=== PATIENT | male | born 1990 | race Asian ===

== ENCOUNTER 2016-04-20 09:26 | Inpatient (IN) | payer OTHER ==
[2016-04-20 09:38] VITALS: BMI 23.3
--- NOTE | 2016-04-20 12:04 | HP ---
COWS - Scale Resting Pulse: 0= ME 80 or Below Sweatin=Flushed/Facial Moisture Restless Observation: 1= Difficult to Sit Still Pupil Size: 0= Normal to Room Light Bone or Joint Aches: 2= Severe Diffuse Aches Runny Nose/ Eye Tearin= Runny Nose/Eyes GI Upset > 30mins: 2= Nausea/Diarrhea Tremor Observation: 2= Slight Tremor Visible Yawning Observation: 2= >3x During Session Anxiety or Irritability: 2=Irritable/Anxious Goose Flesh Skin: 3=Piloerection COWS Score: 18 Admission ROS S - HPI Chief Complaint: I am here for detox Allergies/Adverse Reactions: Allergies Allergy/AdvReac Type Severity Reaction Status Date / Time No Known Allergies Allergy Verified 04/20/16 09:29 History of Present Illness: pt is a 25yr old male with a history of heroin dependence seeking detox for treatment. Exam Limitations: No Limitations - Ebola screening Have you traveled outside of the country in the last 21 days: No Have you had contact with anyone from an Ebola affected area: No Have you been sick,other than usual withdrawal symptoms: No Do you have a fever: No - Review of Systems Constitutional: Chills, Diaphoresis, Night Sweats EENT: reports: No Symptoms Reported Respiratory: reports: No Symptoms reported Cardiac: reports: No Symptoms Reported GI: reports: Diarrhea, Poor Fluid Intake : reports: No Symptoms Reported Musculoskeletal: reports: Back Pain, Joint Pain, Muscle Pain Integumentary: reports: Flushing, Sweating Neuro: reports: Headache, Tingling, Tremors Endocrine: reports: Excessive Sweating, Flushing, Intolerance to Cold, Intolerance to Heat Hematology: reports: No Symptoms Reported Psychiatric: reports: No Sypmtoms Reported, Judgement Intact, Mood/Affect Appropiate, Orientated x3, Agitated, Anxious Other Systems: Reviewed and Negative Patient History - Patient Medical History Hx Anemia: No Hx Asthma: No Hx Chronic Obstructive Pulmonary Disease (COPD): No Hx Cancer: No Hx Cardiac Disorders: No Hx Congestive Heart Failure: No Hx Hypertension: No Hx Hypercholesterolemia: No Hx Pacemaker: No HX Cerebrovascular Accident: No Hx Seizures: No Hx Dementia: No Hx Diabetes: No Hx Gastrointestinal Disorders: No Hx Liver Disease: No Hx Genitourinary Disorders: No Hx Sexually Transmitted Disorders: No Hx Renal Disease (ESRD): No Hx Thyroid Disease: No Hx Human Immunodeficiency Virus (HIV): No (negative) Hx Hepatitis C: No (negative) Hx Depression: No Hx Suicide Attempt: No (denies) Hx Bipolar Disorder: No Hx Schizophrenia: No - Patient Surgical History Past Surgical History: No Hx Neurologic Surgery: No Hx Cataract Extraction: No Hx Cardiac Surgery: No Hx Lung Surgery: No Hx Breast Surgery: No Hx Breast Biopsy: No Hx Abdominal Surgery: No Hx Appendectomy: No Hx Cholecystectomy: No Hx Genitourinary Surgery: No Hx Section: No Hx Orthopedic Surgery: No - PPD History Previous Implant?: Yes Documented Results: Negative w/proof Implanted On Prior [facility] Admission?: Yes Date: 01/14/16 Results: 0 MM PPD to be Administered?: No - Reproductive History Patient is a Female of Child Bearing Age (11 -55 yrs old): No - Smoking Cessation Smoking history: Current every day smoker Have you smoked in the past 12 months: Yes Aproximately how many cigarettes per day: 10 Cigars Per Day: 0 Hx Chewing Tobacco Use: No Initiated information on smoking cessation: Yes 'Breaking Loose' booklet given: 04/20/16 - Substance & Tx. History Hx Alcohol Use: No Hx Substance Use: Yes Substance Use Type: Heroin Hx Substance Use Treatment: Yes - Substances Abused Heroin Route: Injection Frequency: Daily Amount used: 15-20 BAGS Age of first use: 22 Date of Last Use: 04/19/16 Family Disease History - Family Disease History Family Disease History: Diabetes: Father (BLOOD CLOT ), Brother, Heart Disease: Mother (), Other: Father Admission Physical Exam S - Vital Signs Vital Signs: Vital Signs - 24 hr 04/20/16 09:35 Temperature 96.9 F L Pulse Rate 76 Respiratory 18 Rate Blood Pressure 134/76 - Physical General Appearance: Yes: Appropriately Dressed, Moderate Distress, Thin, Tremorous, Irritable, Sweating, Anxious HEENTM: Yes: Hearing grossly Normal, Normal Voice, Nasal Congestion Respiratory: Yes: Lungs Clear, Normal Breath Sounds, No Respiratory Distress Neck: Yes: No masses,lesions,Nodules Breast: Yes: Within Normal Limits Cardiology: Yes: Regular Rhythm, Regular Rate, S1, S2 Abdominal: Yes: Normal Bowel Sounds, Non Tender, Soft Genitourinary: Yes: Within Normal Limits Back: Yes: Normal Inspection Musculoskeletal: Yes: full range of Motion, Back pain, Joint Stiffness, Joint swelling Extremities: Yes: Normal Capillary Refill, Normal Inspection, Tremors Neurological: Yes: Fully Oriented, Alert, Normal Response Integumentary: Yes: Normal Color, Diaphoresis, Track Meier (abscess to left forearm) Lymphatic: Yes: Within Normal Limits - Diagnostic (1) Nicotine dependence Current Visit: Yes Status: Chronic Qualifiers: Nicotine product type: cigarettes Substance use status: uncomplicated Qualified Code(s): F17.210 - Nicotine dependence, cigarettes, uncomplicated (2) Opioid dependence with withdrawal Current Visit: Yes Status: Chronic Cleared for Admission [facility] - Detox or Rehab [facility] Level of Care: Medically Managed Detox Regimen/Protocol: Methadone [facility] Breath Alcohol Content Breath Alcohol Content: 0 Urine Drug Screen - Results Drug Screen Negative: No Urine Drug Screen Results: THC-Marijuana, OPI-Opiates, MTD-Methadone
[2016-04-20] MEDS ORDERED: MAGNESIUM HYDROX 2400MG/30ML ORAL SUSPENSION 30 ML CUP PO PRN (12:14)
[2016-04-20] MEDS ORDERED: LOPERAMIDE HCL 2 MG CAPSULE PO PRN (12:14)
[2016-04-20] MEDS ORDERED: MENTHOL/PHENOL 1 EACH UD MM PRN (12:14)
[2016-04-20] MEDS ORDERED: ACETAMINOPHEN 325 MG TABLET (FP) PO PRN (12:14)
[2016-04-20] MEDS ORDERED: P-EPHED 60MG/TRIPROLIDI 2.5MG TABLET PO PRN (12:14)
[2016-04-20] MEDS ORDERED: MAG HYDROX/AL HYDROX/SIMETH 30 ML UNIT-DOSE CUP PO PRN (12:14)
[2016-04-20] MEDS ORDERED: guaiFENesin/D-METHORPHAN HB 10 ML UNIT-DOSE CUPS PO PRN (12:14)
[2016-04-20] MEDS ORDERED: MAGNESIUM CITRATE 300 ML BOTTLE PO PRN (12:14)
[2016-04-20] MEDS ORDERED: NICOTINE POLACRILEX 4 MG GUM BUC PRN (12:14)
[2016-04-20] MEDS ORDERED: cloNIDine HCL 0.1 MG TABLET PO ONE (13:06)
[2016-04-20] MEDS ORDERED: METHADONE HCL 10 MG TABLET (FOR DETOX USE ONLY) PO ONE ×2 (13:08→23:00)
[2016-04-20] MEDS: diazePAM 5 MG TABLET PO PRN ×3 (13:36→22:19)
[2016-04-20 20:15] LABS: URINE APPEARANCE SLCLOUDY; URINE BILIRUBIN NEGATIVE (NEGATIVE); URINE BLOOD NEGATIVE (NEGATIVE); URINE COLOR DKYELLOW; URINE GLUCOSE (UA) NEGATIVE (NEGATIVE); URINE KETONE NEGATIVE (NEGATIVE); URINE LEUK ESTERASE NEGATIVE (NEGATIVE); URINE NITRITE NEGATIVE (NEGATIVE); URINE PROTEIN NEGATIVE (NEGATIVE); URINE UROBILINOGEN NEGATIVE E.U./dl (0.2-1.0)
[2016-04-20] MEDS: diphenhydrAMINE HCL 50 MG CAPSULE PO PRN (22:19)
[2016-04-20] MEDS: THIAMINE HCL 100 MG TABLET (FP) PO SCH (22:19)
--- NOTE | 2016-04-20 23:33 | EKG ---
Test Reason : Blood Pressure : / mmHG Vent. Rate : 079 BPM Atrial Rate : 079 BPM P-R Int : 130 ms QRS Dur : 084 ms QT Int : 374 ms P-R-T Axes : 025 038 023 degrees QTc Int : 428 ms NORMAL SINUS RHYTHM NORMAL ECG NO PREVIOUS ECGS AVAILABLE Confirmed by EVIN PARIS MD ([id number]) on 04/20/2016 11:33:27 PM Referred By: Confirmed By:EVIN PARIS MD
[2016-04-21] MEDS: diphenhydrAMINE HCL 50 MG CAPSULE PO PRN (01:46)
[2016-04-21] MEDS: IBUPROFEN 400 MG TABLET (FP) PO PRN ×2 (01:47→20:07)
[2016-04-21] MEDS: diazePAM 5 MG TABLET PO PRN ×4 (02:31→18:29)
[2016-04-21] MEDS ORDERED: METHADONE HCL 10 MG TABLET (FOR DETOX USE ONLY) PO ONE (10:00)
[2016-04-21 10:07] LABS: MCH 25.5 pg (25.7-33.7); MCHC 32.2 g/dl (32.0-35.9); MEAN CELL VOLUME 79.3 fl (80-96); MEAN PLT VOLUME 9.4 fl (7.5-11.1); PLATELET COUNT 386 K/MM3 (134-434); RDW 15.2 % (11.9-15.9); WHITE BLOOD COUNT 10.6 K/mm3 (4.0-10.0)
[2016-04-21] MEDS: SULFAMETHOXAZOLE/TRIMETHOPRIM 800MG/160MG D.S. TABLET PO SCH (10:14)
[2016-04-21] MEDS: PRENATAL VITAMINS W/ FOLIC ACID TABLET (FP) PO SCH (10:15)
[2016-04-21] MEDS: NICOTINE 21 MG/24 HOURS TOPICAL PATCH TD SCH (10:15)
[2016-04-21 10:29] LABS: ALBUMIN 3.8 g/dl (3.4-5.0); ALK PHOS 108 U/L (45-117); ANION GAP 11 (8-16); BILIRUBIN,TOTAL 0.4 mg/dL (0.2-1.0); CALCIUM 9.4 mg/dL (8.5-10.1); CO2 27 mmol/L (21-32); CREATININE 0.9 mg/dL (0.7-1.3); GLUCOSE,RANDOM 165 mg/dL (74-106); SGOT/AST 15 U/L (15-37); SGPT/ALT 24 U/L (12-78)
--- NOTE | 2016-04-21 10:57 | PN ---
BHS COWS - Scale Resting Pulse: 0= [place] 80 or Below Sweatin=Flushed/Facial Moisture Restless Observation: 1= Difficult to Sit Still Pupil Size: 0= Normal to Room Light Bone or Joint Aches: 2= Severe Diffuse Aches Runny Nose/ Eye Tearin= Nasal Congestion GI Upset > 30mins: 0= None Tremor Observation of Outstretched Hands: 2= Slight Tremor Visible Yawning Observation: 2= >3x During Session Anxiety or Irritability: 2=Irritable/Anxious Goose Flesh Skin: 3=Piloerection COWS Score: 15 BHS Progress Note (SOAP) Subjective: agitation anxiety sweats little shakes interrupted sleep abscess to arm Objective: 04/21/16 10:56 Vital Signs Temperature 98.2 F 04/21/16 09:55 Pulse Rate 75 04/21/16 09:55 Respiratory Rate 18 04/21/16 09:55 Blood Pressure 124/82 04/21/16 09:55 O2 Sat by Pulse Oximetry (%) Laboratory Tests 04/20/16 04/21/16 04/21/16 15:00 06:00 06:00 WBC 10.6 H RBC 5.04 Hgb 12.8 Hct 39.9 MCV 79.3 L MCHC 32.2 RDW 15.2 Plt Count 386 D MPV 9.4 Sodium 143 Potassium 4.2 Chloride 105 Carbon Dioxide 27 Anion Gap 11 BUN 9 D Creatinine 0.9 D Creat Clearance w eGFR > 60 Random Glucose 165 H D Calcium 9.4 Total Bilirubin 0.4 AST 15 ALT 24 Alkaline Phosphatase 108 Total Protein 8.0 Albumin 3.8 Urine Color Dkyellow Urine Appearance Slcloudy Urine pH 5.0 Ur Specific [place] 1.025 Urine Protein Negative Urine Glucose (UA) Negative Urine Ketones Negative Urine Blood Negative Urine Nitrite Negative Urine Bilirubin Negative Urine Urobilinogen Negative Ur Leukocyte Esterase Negative awake/alert ambulating no acute distress Assessment: 04/21/16 10:56 withdrawal sx Plan: continue detox increase fluids bactrim po daily warm compress prn
[2016-04-21] MEDS: LIDOCAINE VISCOUS 2% ORAL/TOP 20 ML UNIT-DOSE CUP MM PRN (20:36)
[2016-04-21] MEDS: THIAMINE HCL 100 MG TABLET (FP) PO SCH (23:36)
[2016-04-22] MEDS ORDERED: METHADONE HCL 5 MG TABLET (FOR DETOX USE ONLY) PO ONE (10:00)
[2016-04-22] MEDS: NICOTINE 21 MG/24 HOURS TOPICAL PATCH TD SCH (10:15)
[2016-04-22] MEDS: SULFAMETHOXAZOLE/TRIMETHOPRIM 800MG/160MG D.S. TABLET PO SCH (10:15)
[2016-04-22] MEDS: PRENATAL VITAMINS W/ FOLIC ACID TABLET (FP) PO SCH (10:15)
[2016-04-22] MEDS: diazePAM 5 MG TABLET PO PRN ×2 (10:18→14:49)
--- NOTE | 2016-04-22 10:42 | PN ---
BHS COWS - Scale Resting Pulse: 1= [place] 81-100 Sweatin=Flushed/Facial Moisture Restless Observation: 1= Difficult to Sit Still Pupil Size: 0= Normal to Room Light Bone or Joint Aches: 2= Severe Diffuse Aches Runny Nose/ Eye Tearin= Nasal Congestion GI Upset > 30mins: 0= None Tremor Observation of Outstretched Hands: 2= Slight Tremor Visible Yawning Observation: 2= >3x During Session Anxiety or Irritability: 1=Feels Anxious/Irritable Goose Flesh Skin: 0=Smooth Skin COWS Score: 12 BHS Progress Note (SOAP) Subjective: sweats interrupted sleep agitation body aches/spasm Objective: 04/22/16 10:41 Vital Signs Temperature 98.1 F 04/22/16 09:34 Pulse Rate 86 04/22/16 09:34 Respiratory Rate 18 04/22/16 09:34 Blood Pressure 129/75 04/22/16 09:34 O2 Sat by Pulse Oximetry (%) Laboratory Tests 04/20/16 04/21/16 04/21/16 15:00 06:00 06:00 WBC 10.6 H RBC 5.04 Hgb 12.8 Hct 39.9 MCV 79.3 L MCHC 32.2 RDW 15.2 Plt Count 386 D MPV 9.4 Sodium 143 Potassium 4.2 Chloride 105 Carbon Dioxide 27 Anion Gap 11 BUN 9 D Creatinine 0.9 D Creat Clearance w eGFR > 60 Random Glucose 165 H D Calcium 9.4 Total Bilirubin 0.4 AST 15 ALT 24 Alkaline Phosphatase 108 Total Protein 8.0 Albumin 3.8 Urine Color Dkyellow Urine Appearance Slcloudy Urine pH 5.0 Ur Specific [place] 1.025 Urine Protein Negative Urine Glucose (UA) Negative Urine Ketones Negative Urine Blood Negative Urine Nitrite Negative Urine Bilirubin Negative Urine Urobilinogen Negative Ur Leukocyte Esterase Negative RPR Titer 04/21/16 06:00 WBC RBC Hgb Hct MCV MCHC RDW Plt Count MPV Sodium Potassium Chloride Carbon Dioxide Anion Gap BUN Creatinine Creat Clearance w eGFR Random Glucose Calcium Total Bilirubin AST ALT Alkaline Phosphatase Total Protein Albumin Urine Color Urine Appearance Urine pH Ur Specific [place] Urine Protein Urine Glucose (UA) Urine Ketones Urine Blood Urine Nitrite Urine Bilirubin Urine Urobilinogen Ur Leukocyte Esterase RPR Titer Nonreactive awake/alert ambulating no acute distress Assessment: 04/22/16 10:41 withdrawal sx Plan: continue detox increase fluids
[2016-04-22] MEDS: CYCLOBENZAPRINE HCL 10 MG TABLET (FP) PO PRN (14:49)
[2016-04-22] MEDS: IBUPROFEN 400 MG TABLET (FP) PO PRN (16:26)
[2016-04-22] MEDS: LIDOCAINE VISCOUS 2% ORAL/TOP 20 ML UNIT-DOSE CUP MM PRN (16:27)
[2016-04-22] MEDS: THIAMINE HCL 100 MG TABLET (FP) PO SCH (22:55)
[2016-04-23] MEDS: IBUPROFEN 400 MG TABLET (FP) PO PRN ×3 (03:29→21:09)
[2016-04-23] MEDS: diazePAM 5 MG TABLET PO PRN ×2 (03:29→10:27)
[2016-04-23] MEDS: LIDOCAINE VISCOUS 2% ORAL/TOP 20 ML UNIT-DOSE CUP MM PRN ×3 (03:31→23:17)
[2016-04-23] MEDS ORDERED: METHADONE HCL 5 MG TABLET (FOR DETOX USE ONLY) PO ONE (10:00)
[2016-04-23] MEDS: SULFAMETHOXAZOLE/TRIMETHOPRIM 800MG/160MG D.S. TABLET PO SCH (10:20)
[2016-04-23] MEDS: NICOTINE 21 MG/24 HOURS TOPICAL PATCH TD SCH (10:20)
[2016-04-23] MEDS: PRENATAL VITAMINS W/ FOLIC ACID TABLET (FP) PO SCH (10:20)
--- NOTE | 2016-04-23 11:38 | PN ---
S Progress Note (SOAP) Subjective: ALERT,IRRITABLE,ANXIOUS,INTERRUPTED SLEEP,PAIN IN THE BODY AND BACK Objective: 04/23/16 11:37 Vital Signs Temperature 97.3 F L 04/23/16 11:26 Pulse Rate 86 04/23/16 11:26 Respiratory Rate 18 04/23/16 11:26 Blood Pressure 128/74 04/23/16 11:26 O2 Sat by Pulse Oximetry (%) Assessment: 04/23/16 11:37 WITHDRAWAL SYMPTOM Plan: CONTINUE DETOX
--- NOTE | 2016-04-23 11:41 | PN ---
BHS Progress Note Note: INITIAL GLUCOSE IS 165,BGM MONITORING
[2016-04-23] MEDS: CYCLOBENZAPRINE HCL 10 MG TABLET (FP) PO PRN ×2 (15:09→22:06)
[2016-04-23] MEDS: hydrOXYzine PAMOATE 50 MG CAPSULE (FP) PO PRN (15:09)
[2016-04-23] MEDS: THIAMINE HCL 100 MG TABLET (FP) PO SCH (22:06)
[2016-04-24] MEDS: diphenhydrAMINE HCL 50 MG CAPSULE PO PRN ×2 (01:10→22:48)
[2016-04-24] MEDS: IBUPROFEN 400 MG TABLET (FP) PO PRN ×2 (03:50→10:02)
[2016-04-24] MEDS: hydrOXYzine PAMOATE 50 MG CAPSULE (FP) PO PRN ×2 (03:51→09:59)
[2016-04-24] MEDS: LIDOCAINE VISCOUS 2% ORAL/TOP 20 ML UNIT-DOSE CUP MM PRN ×2 (03:51→10:00)
[2016-04-24] MEDS: CYCLOBENZAPRINE HCL 10 MG TABLET (FP) PO PRN (09:59)
[2016-04-24] MEDS: SULFAMETHOXAZOLE/TRIMETHOPRIM 800MG/160MG D.S. TABLET PO SCH (09:59)
[2016-04-24] MEDS: PRENATAL VITAMINS W/ FOLIC ACID TABLET (FP) PO SCH (09:59)
[2016-04-24] MEDS: NICOTINE 21 MG/24 HOURS TOPICAL PATCH TD SCH (10:00)
[2016-04-24] MEDS ORDERED: METHADONE HCL 10 MG TABLET (FOR DETOX USE ONLY) PO ONE (10:00)
--- NOTE | 2016-04-24 12:38 | PN ---
S Progress Note (SOAP) Subjective: ALERT,IRRITABLE,INTERRUPTED SLEEP Objective: 04/24/16 12:37 Vital Signs Temperature 98.2 F 04/24/16 10:03 Pulse Rate 84 04/24/16 10:03 Respiratory Rate 20 04/24/16 10:03 Blood Pressure 131/67 04/24/16 10:03 O2 Sat by Pulse Oximetry (%) Assessment: 04/24/16 12:37 WITHDRAWAL SYMPTOM Plan: CONTINUE DETOX,DISCHARGE IN AM
--- NOTE | 2016-04-24 12:40 | PN ---
BHS Progress Note Note: BGM 100
[2016-04-24] MEDS: THIAMINE HCL 100 MG TABLET (FP) PO SCH (22:48)
[2016-04-25] MEDS: CYCLOBENZAPRINE HCL 10 MG TABLET (FP) PO PRN (05:54)
[2016-04-25] MEDS: LIDOCAINE VISCOUS 2% ORAL/TOP 20 ML UNIT-DOSE CUP MM PRN (05:54)
[2016-04-25] MEDS ORDERED: METHADONE HCL 5 MG TABLET (FOR DETOX USE ONLY) PO ONE (06:00)
--- NOTE | 2016-04-25 10:12 | PN ---
S Progress Note (SOAP) Subjective: ALERT,NO COMPLAINT Objective: 04/25/16 10:10 Vital Signs Temperature 98.6 F 04/25/16 07:46 Pulse Rate 79 04/25/16 07:46 Respiratory Rate 18 04/25/16 07:46 Blood Pressure 114/79 04/25/16 07:46 O2 Sat by Pulse Oximetry (%) Assessment: DETOX COMPLETED,NO WITHDRAWAL SYMPTOM,RESOLVING OF ABSCESS LEFT FOREARM Plan: DISCHARGE TODAY,FOLLOW UP WITH AFTER CARE PROGRAM ARRANGEMENT
--- NOTE | 2016-04-25 10:16 | DS ---
[facility] Detox Discharge Summary Admission Date: 04/20/16 Discharge Date: 05/02/16 - History Present History: Opioid Dependence Additional Comments: FOLLOW UP WITH AFTER CARE PROGRAM ARRANGEMENT Pertinent Past History: NICOTINE DEPENDENCE RESOLVING OF ABSCESS LEFT FOREARM - Physical Exam Results Vital Signs: Vital Signs Temperature 98.6 F 04/25/16 07:46 Pulse Rate 79 04/25/16 07:46 Respiratory Rate 18 04/25/16 07:46 Blood Pressure 114/79 04/25/16 07:46 O2 Sat by Pulse Oximetry (%) Pertinent Admission Physical Exam Findings: WITHDRAWAL SYMPTOM - Treatment Hospital Course: Detox Protocol Followed, Detoxed Safely, Responded well, Discharged Condition Good Patient has Accepted a Rehab Referral to: DECLINED - Medication Discharge Medications: Ambulatory Orders NK [No Known Home Medication] 01/12/16 - AMA Did Patient Leave Against Medical Advice: No
[2016-04-25] MEDS: PRENATAL VITAMINS W/ FOLIC ACID TABLET (FP) PO SCH (10:29)
[2016-04-25] MEDS: SULFAMETHOXAZOLE/TRIMETHOPRIM 800MG/160MG D.S. TABLET PO SCH (10:30)
[2016-04-25] MEDS: NICOTINE 21 MG/24 HOURS TOPICAL PATCH TD SCH (10:30)
[2016-04-25 11:00] VITALS: BP 124/61; PULSE 73; TEMP 98.2
== END 2016-04-25 10:44 | disposition home or self-care (01) | DRG 773 ==
LOC: YASAS 09:26 → Y6N 12:58
PROVIDERS: ADMIT Internal Medicine Addiction Medicine; ATTEND Internal Medicine Addiction Medicine
PROC: HZ2ZZZZ Detoxification Services for Substance Abuse Treatment (ICD-10-PCS; principal; 2016-04-25)
DX: F11.23 Opioid dependence with withdrawal (principal); F17.210 Nicotine dependence, cigarettes, uncomplicated
CPT/HCPCS: 36415; 80053; 81003; 85027; 86593; 93005; 93010

== ENCOUNTER 2017-02-14 13:17 | Inpatient (IN) | payer OTHER ==
[2017-02-14 13:40] VITALS: BMI 20.3
--- NOTE | 2017-02-14 14:44 | HP ---
CIWA Score - CIWA Score Nausea/Vomitin-No Nausea/No Vomiting Muscle Tremors: 3 Anxiety: 4-Mod. Anxious/Guarded Agitation: 4-Moderately Restless Paroxysmal Sweats: 1-Minimal Palms Moist Orientation: 0-Oriented Tacttile Disturbances: 3-Moderate Itch/Numb/Burn Auditory Disturbances: 0-None Visual Disturbances: 0-None Headache: 1-Very Mild CIWA-Ar Total Score: 16 Admission ROS BHS - HPI Chief Complaint: DETOX TX FOR WITHDRAWAL SX OF SEDATIVES---XANAX AND KLONOPIN Allergies/Adverse Reactions: Allergies Allergy/AdvReac Type Severity Reaction Status Date / Time No Known Allergies Allergy Verified 02/14/17 13:42 History of Present Illness: 26 Y/O MALE WITH A HX OF SEDATIVE DEPENDENCE SEEKING DETOX TX. PT ON MMTP 300 MG PO DAILY Exam Limitations: No Limitations - Ebola screening Have you traveled outside of the country in the last 21 days: No Have you had contact with anyone from an Ebola affected area: No Have you been sick,other than usual withdrawal symptoms: No Do you have a fever: No - Review of Systems Constitutional: Chills, Loss of Appetite, Night Sweats, Changes in sleep, Unintentional Wgt. Loss EENT: reports: Tearing Respiratory: reports: No Symptoms reported Cardiac: reports: Lightheadedness GI: reports: Diarrhea, Nausea, Poor Appetite, Poor Fluid Intake, Vomiting, Abdominal cramping : reports: Dysuria Musculoskeletal: reports: Back Pain, Joint Pain, Muscle Pain Integumentary: reports: No Symptoms Reported Neuro: reports: Headache, Tremors, Dizziness Endocrine: reports: No Symptoms Reported Hematology: reports: Anemia Psychiatric: reports: Orientated x3, Anxious, Depressed Other Systems: Reviewed and Negative Patient History - Patient Medical History Hx Anemia: No Hx Asthma: No Hx Chronic Obstructive Pulmonary Disease (COPD): No Hx Cancer: No Hx Cardiac Disorders: No Hx Congestive Heart Failure: No Hx Hypertension: No Hx Hypercholesterolemia: No Hx Pacemaker: No HX Cerebrovascular Accident: No Hx Seizures: No Hx Dementia: No Hx Diabetes: No Hx Gastrointestinal Disorders: No Hx Liver Disease: No Hx Genitourinary Disorders: No Hx Sexually Transmitted Disorders: No Hx Renal Disease (ESRD): No Hx Thyroid Disease: No Hx Human Immunodeficiency Virus (HIV): No (negative) Hx Hepatitis C: No (negative) Hx Depression: Yes (ANX ANXIETY.) Hx Suicide Attempt: No Hx Bipolar Disorder: No Hx Schizophrenia: No - Patient Surgical History Past Surgical History: No Hx Neurologic Surgery: No Hx Cataract Extraction: No Hx Cardiac Surgery: No Hx Lung Surgery: No Hx Breast Surgery: No Hx Breast Biopsy: No Hx Abdominal Surgery: No Hx Appendectomy: No Hx Cholecystectomy: No Hx Genitourinary Surgery: No Hx Orthopedic Surgery: No Anesthesia Reaction: No - PPD History Previous Implant?: Yes Documented Results: Negative w/o proof Implanted On Prior [facility] Admission?: Yes Date: 01/14/16 Results: 0 mm PPD to be Administered?: Yes - Reproductive History Patient is a Female of Child Bearing Age (11 -55 yrs old): No (MALE) - Smoking Cessation Smoking history: Current every day smoker Have you smoked in the past 12 months: Yes Aproximately how many cigarettes per day: 10 Cigars Per Day: 0 Hx Chewing Tobacco Use: No Initiated information on smoking cessation: Yes 'Breaking Loose' booklet given: 02/14/17 - Substance & Tx. History Hx Alcohol Use: No (DENIES) Hx Substance Use: Yes (XANAX/KLONOPIN/MARIJUANA) Substance Use Type: Marijuana, Tranquilizers Hx Substance Use Treatment: Yes (LAST TX AT [facility]) - Substances Abused Marijuana/Hashish Route: Smoking Frequency: 1-3 times last 30 days Amount used: 1 joint Age of first use: 16 Date of Last Use: 02/13/17 xanax or klonopin Route: Oral Frequency: Daily Amount used: 12mg Age of first use: 26 Date of Last Use: 02/13/17 Family Disease History - Family Disease History Family Disease History: Diabetes: Father (BLOOD CLOT ), Brother, Heart Disease: Mother (), Other: Father Admission Physical Exam BHS - Vital Signs Vital Signs: Vital Signs - 24 hr 02/14/17 13:25 Temperature 98.9 F Pulse Rate 85 Respiratory 18 Rate Blood Pressure 117/73 - Physical General Appearance: Yes: Moderate Distress, Irritable, Anxious HEENTM: Yes: EOMI, Normocephalic, QUIN, Pharynx Normal Respiratory: Yes: Chest Non-Tender, Lungs Clear, Normal Breath Sounds, No Respiratory Distress Breast: Yes: Breast Exam Deferred Cardiology: Yes: Regular Rhythm, Regular Rate, S1, S2 Abdominal: Yes: Normal Bowel Sounds, Non Tender, Flat Genitourinary: Yes: Other Back: Yes: Within Normal Limits Musculoskeletal: Yes: full range of Motion, Gait Steady Extremities: Yes: Normal Range of Motion, Non-Tender Neurological: Yes: informatics physician II-XII NML intact, Fully Oriented, Alert, Motor Strength 5/5 Integumentary: Yes: Dry, Warm Lymphatic: Yes: Within Normal Limits - Diagnostic (1) Nicotine dependence Current Visit: Yes Status: Acute Qualifiers: Nicotine product type: cigarettes Substance use status: in withdrawal Qualified Code(s): F17.213 - Nicotine dependence, cigarettes, with withdrawal (2) Methadone maintenance therapy patient Current Visit: Yes Status: Chronic (3) Sedative, hypnotic or anxiolytic dependence with withdrawal, uncomplicated Current Visit: Yes Status: Acute (4) Cannabis dependence, uncomplicated Current Visit: Yes Status: Acute Cleared for Admission [facility] - Detox or Rehab [facility] Level of Care: Medically Managed Detox Regimen/Protocol: Valium [facility] Breath Alcohol Content Breath Alcohol Content: 0 Urine Drug Screen - Results Drug Screen Negative: No Urine Drug Screen Results: THC-Marijuana, REENA-Cocaine, BZO-Benzodiazepines, MTD- Methadone
[2017-02-14] MEDS ORDERED: MAG HYDROX/AL HYDROX/SIMETH 30 ML UNIT-DOSE CUP PO PRN (14:54)
[2017-02-14] MEDS ORDERED: P-EPHED 60MG/TRIPROLIDI 2.5MG TABLET PO PRN (14:54)
[2017-02-14] MEDS ORDERED: MAGNESIUM CITRATE 300 ML BOTTLE PO PRN (14:54)
[2017-02-14] MEDS ORDERED: IBUPROFEN 400 MG TABLET (FP) PO PRN (14:54)
[2017-02-14] MEDS ORDERED: NICOTINE POLACRILEX 2 MG GUM BUC PRN (14:54)
[2017-02-14] MEDS ORDERED: MENTHOL/PHENOL 1 EACH UD MM PRN (14:54)
[2017-02-14] MEDS ORDERED: guaiFENesin/D-METHORPHAN HB 10 ML UNIT-DOSE CUPS PO PRN (14:54)
[2017-02-14] MEDS ORDERED: ACETAMINOPHEN 325 MG TABLET (FP) PO PRN (14:54)
[2017-02-14] MEDS ORDERED: MAGNESIUM HYDROX 2400MG/30ML ORAL SUSPENSION 30 ML CUP PO PRN (14:54)
[2017-02-14] MEDS ORDERED: diazePAM 5 MG TABLET PO ONE (15:22)
[2017-02-14] MEDS: NICOTINE 14 MG/24 HOURS TOPICAL PATCH TD SCH (17:09)
[2017-02-14 22:19] LABS: URINE APPEARANCE CLEAR; URINE BILIRUBIN NEGATIVE (NEGATIVE); URINE BLOOD NEGATIVE (NEGATIVE); URINE COLOR YELLOW; URINE GLUCOSE (UA) NEGATIVE (NEGATIVE); URINE KETONE NEGATIVE (NEGATIVE); URINE PROTEIN NEGATIVE (NEGATIVE); URINE UROBILINOGEN NORMAL mg/dL (0.2-1.0)
[2017-02-14 22:20] LABS: URINE NITRITE NEGATIVE (NEGATIVE)
[2017-02-14] MEDS: THIAMINE HCL 100 MG TABLET (FP) PO SCH (22:29)
[2017-02-14] MEDS: diazePAM 5 MG TABLET PO SCH (22:29)
[2017-02-15] MEDS ORDERED: METHADONE HCL 40 MG DISPERSABLE TABLET ONE (04:42)
[2017-02-15] MEDS ORDERED: METHADONE HCL 10 MG TABLET ONE (04:43)
[2017-02-15] MEDS ORDERED: METHADONE HCL 10 MG TABLET PO SCH (06:00)
[2017-02-15] MEDS: METHADONE PO SCH (07:27)
[2017-02-15] MEDS: diazePAM 5 MG TABLET PO SCH ×3 (07:28→22:26)
[2017-02-15 09:18] LABS: URINE LEUK ESTERASE Negative (NEGATIVE)
--- NOTE | 2017-02-15 10:04 | PN ---
S CIWA - CIWA Score Nausea/Vomitin-No Nausea/No Vomiting Muscle Tremors: 4-Moderate,w/Arms Extend Anxiety: 3 Agitation: 3 Paroxysmal Sweats: 3 Orientation: 0-Oriented Tacttile Disturbances: 0-None Auditory Disturbances: 0-None Visual Disturbances: 0-None Headache: 1-Very Mild CIWA-Ar Total Score: 14 BHS Progress Note (SOAP) Subjective: irritable agitation anxiety sweats interrupted sleep restless Objective: 02/15/17 10:03 Vital Signs Temperature 97.7 F 02/15/17 06:00 Pulse Rate 68 02/15/17 06:00 Respiratory Rate 16 02/15/17 06:00 Blood Pressure 103/56 02/15/17 06:00 O2 Sat by Pulse Oximetry (%) Laboratory Tests 02/14/17 15:00 Urine Color Yellow Urine Appearance Clear Urine pH 6.0 Ur Specific [place] 1.030 Urine Protein Negative Urine Glucose (UA) Negative Urine Ketones Negative Urine Blood Negative Urine Nitrite Negative Urine Bilirubin Negative Urine Urobilinogen Normal Ur Leukocyte Esterase Negative labs pending aaox3 ambulating no acute distress Assessment: 02/15/17 10:04 withdrawal sx Plan: continue detox increase fluids labs pending
[2017-02-15 10:06] LABS: MCH 26.2 pg (25.7-33.7); MCHC 32.8 g/dl (32.0-35.9); MEAN CELL VOLUME 79.9 fl (80-96); PLATELET COUNT 423 K/MM3 (134-434); RDW 17.3 % (11.9-15.9); WHITE BLOOD COUNT 8.2 K/mm3 (4.0-10.0)
[2017-02-15 10:18] LABS: ALBUMIN 3.3 g/dl (3.4-5.0); ANION GAP 6 (8-16); CALCIUM 8.3 mg/dL (8.5-10.1); CO2 27 mmol/L (21-32); GLUCOSE,RANDOM 110 mg/dL (74-106)
--- NOTE | 2017-02-15 10:18 | EKG ---
Test Reason : Blood Pressure : / mmHG Vent. Rate : 063 BPM Atrial Rate : 063 BPM P-R Int : 140 ms QRS Dur : 088 ms QT Int : 466 ms P-R-T Axes : 019 039 031 degrees QTc Int : 476 ms NORMAL SINUS RHYTHM NORMAL ECG WHEN COMPARED WITH ECG OF 14-FEB-2017 17:12, NO SIGNIFICANT CHANGE WAS FOUND Confirmed by BRENT DEMARCO MD ([id number]) on 02/15/2017 10:17:53 AM Referred By: JIN PERLA Confirmed By:BRENT DEMARCO MD
[2017-02-15] MEDS: PRENATAL VITAMINS W/ FOLIC ACID TABLET (FP) PO SCH (10:20)
[2017-02-15] MEDS: diazePAM 5 MG TABLET PO PRN ×2 (10:20→19:09)
[2017-02-15 10:21] LABS: ALK PHOS 91 U/L (45-117); BILIRUBIN,TOTAL 0.2 mg/dL (0.2-1.0); CREATININE 0.6 mg/dL (0.7-1.3); SGOT/AST 21 U/L (15-37); SGPT/ALT 32 U/L (12-78); TOT PROT 7.2 g/dl (6.4-8.2)
[2017-02-15] MEDS: NICOTINE 14 MG/24 HOURS TOPICAL PATCH TD SCH (10:23)
--- NOTE | 2017-02-15 16:53 | CONSULT ---
[facility] Psychiatric Consult - Data Date of interview: 02/15/17 Admission source: [facility] Identifying data: Pt. is a 26 year old male, , with 2 kids. Pt. is unemployed and lives with . Pt. admitted to to detox for xanax. Substance Abuse History: Heroin- Reports using heroin for 3 years. Last used 4 months ago. Pt. reports a history of using 2 bundles per day. Cigerettes- Reports using approximately one pack per day since 14 years of age. Last used before admission. Xanax- Began using xanax one month ago, 8-12 mg per dag. Last used before admission. Medical History: Denies Psychiatric History: Denies Physical/Sexual Abuse/Trauma History: Denies Mental Status Exam - Mental Status Exam Alert and Oriented to: Time, Place, Person Cognitive Function: Good Patient Appearance: Well Groomed Mood: Euthymic Affect: Appropriate, Normal Range Patient Behavior: Appropriate, Cooperative Speech Pattern: Clear Voice Loudness: Normal Thought Process: Goal Oriented Hallucinations: Denies Suicidal Ideation: Denies Homicidal Ideation: Denies Insight/Judgement: Poor Sleep: Well Appetite: Good Muscle strength/Tone: Normal Gait/Station: Normal Psychiatric Findings - Problem List ([place] 1, 2,3) (1) Sedative, hypnotic or anxiolytic dependence with withdrawal, uncomplicated Current Visit: Yes Status: Acute (2) Nicotine dependence Current Visit: Yes Status: Acute Qualifiers: Nicotine product type: cigarettes Substance use status: in withdrawal Qualified Code(s): F17.213 - Nicotine dependence, cigarettes, with withdrawal (3) Methadone maintenance therapy patient Current Visit: Yes Status: Chronic - Initial Treatment Plan Initial Treatment Plan: Psychoeducation given. Detoxificiation in effect. Will monitor progress.
[2017-02-15] MEDS: THIAMINE HCL 100 MG TABLET (FP) PO SCH (22:26)
[2017-02-16] MEDS ORDERED: METHADONE HCL 40 MG DISPERSABLE TABLET ONE (04:31)
[2017-02-16] MEDS ORDERED: METHADONE HCL 10 MG TABLET ONE (04:32)
[2017-02-16] MEDS: METHADONE PO SCH (05:20)
[2017-02-16] MEDS: diazePAM 5 MG TABLET PO PRN ×4 (06:00→18:29)
[2017-02-16] MEDS: NICOTINE 21 MG/24 HOURS TOPICAL PATCH TD SCH (10:10)
[2017-02-16] MEDS: diazePAM 5 MG TABLET PO SCH ×2 (10:11→22:06)
[2017-02-16] MEDS: PRENATAL VITAMINS W/ FOLIC ACID TABLET (FP) PO SCH (10:11)
[2017-02-16] MEDS: LOPERAMIDE HCL 2 MG CAPSULE PO PRN ×2 (10:13→18:29)
--- NOTE | 2017-02-16 12:48 | PN ---
S CIWA - CIWA Score Nausea/Vomitin-No Nausea/No Vomiting Muscle Tremors: 3 Anxiety: 3 Agitation: 4-Moderately Restless Paroxysmal Sweats: 2 Orientation: 0-Oriented Tacttile Disturbances: 0-None Auditory Disturbances: 0-None Visual Disturbances: 0-None Headache: 0-None Present CIWA-Ar Total Score: 12 BHS Progress Note (SOAP) Subjective: sweats shakes anxiety Objective: 02/16/17 12:44 Vital Signs Temperature 98.2 F 02/16/17 10:00 Pulse Rate 60 02/16/17 10:00 Respiratory Rate 18 02/16/17 10:00 Blood Pressure 124/83 02/16/17 10:00 O2 Sat by Pulse Oximetry (%) Laboratory Tests 02/14/17 02/15/17 02/15/17 15:00 07:00 07:00 WBC 8.2 RBC 4.32 Hgb 11.3 L D Hct 34.5 L MCV 79.9 L MCH 26.2 MCHC 32.8 RDW 17.3 H D Plt Count 423 MPV 9.0 Sodium 141 Potassium 4.7 Chloride 108 H Carbon Dioxide 27 Anion Gap 6 L BUN 12 D Creatinine 0.6 L D Creat Clearance w eGFR > 60 Random Glucose 110 H D Calcium 8.3 L Total Bilirubin 0.2 D AST 21 D ALT 32 D Alkaline Phosphatase 91 Total Protein 7.2 Albumin 3.3 L Urine Color Yellow Urine Appearance Clear Urine pH 6.0 Ur Specific [place] 1.030 Urine Protein Negative Urine Glucose (UA) Negative Urine Ketones Negative Urine Blood Negative Urine Nitrite Negative Urine Bilirubin Negative Urine Urobilinogen Normal Ur Leukocyte Esterase Negative RPR Titer 02/15/17 07:00 WBC RBC Hgb Hct MCV MCH MCHC RDW Plt Count MPV Sodium Potassium Chloride Carbon Dioxide Anion Gap BUN Creatinine Creat Clearance w eGFR Random Glucose Calcium Total Bilirubin AST ALT Alkaline Phosphatase Total Protein Albumin Urine Color Urine Appearance Urine pH Ur Specific [place] Urine Protein Urine Glucose (UA) Urine Ketones Urine Blood Urine Nitrite Urine Bilirubin Urine Urobilinogen Ur Leukocyte Esterase RPR Titer Nonreactive aaox3 ambulating no acute distress Assessment: 02/16/17 12:48 withdrawal sx Plan: continue detox increase fluids
--- NOTE | 2017-02-16 19:16 | PN ---
[facility] Progress Note Note: Psychiatry Attending's note : Consult by IMELDA Carlin : appreciated. Met with patient.Doing well.Euthymic.Comfortable. Observed in Day room,socializing with peers.At ease. Feels well.Contemplates transition to rehabilitation care. Stable mental status.Baseline.Benign hospital course. I agree with IMELDA Carlin's findings + treatment plan.
[2017-02-16] MEDS: THIAMINE HCL 100 MG TABLET (FP) PO SCH (22:07)
[2017-02-17] MEDS ORDERED: METHADONE HCL 40 MG DISPERSABLE TABLET ONE (04:39)
[2017-02-17] MEDS ORDERED: METHADONE HCL 10 MG TABLET ONE (04:40)
[2017-02-17] MEDS: METHADONE PO SCH (05:36)
[2017-02-17] MEDS: diazePAM 5 MG TABLET PO PRN ×2 (05:41→10:42)
[2017-02-17] MEDS: diazePAM 5 MG TABLET PO SCH ×2 (10:42→22:25)
[2017-02-17] MEDS: PRENATAL VITAMINS W/ FOLIC ACID TABLET (FP) PO SCH (10:43)
[2017-02-17] MEDS: NICOTINE 21 MG/24 HOURS TOPICAL PATCH TD SCH (10:44)
--- NOTE | 2017-02-17 12:32 | PN ---
BHS Progress Note (SOAP) Subjective: diarrhea Objective: 02/17/17 12:31 Vital Signs Temperature 98.4 F 02/17/17 09:28 Pulse Rate 67 02/17/17 09:28 Respiratory Rate 18 02/17/17 09:28 Blood Pressure 103/65 02/17/17 09:28 O2 Sat by Pulse Oximetry (%) aaox3 ambulating no acute distress Assessment: 02/17/17 12:31 mild withdrawal sx Plan: continue detox immodium prn d/c in am
[2017-02-17] MEDS ORDERED: hydrOXYzine HCL 25 MG TABLET (FP) PO PRN (17:07)
[2017-02-17] MEDS ORDERED: ONDANSETRON *ODT* 4 MG TABLET SL PRN (17:08)
[2017-02-17] MEDS ORDERED: ONDANSETRON *ODT* 4 MG TABLET SL ONE (17:30)
[2017-02-17] MEDS ORDERED: ONDANSETRON 8 MG TABLET (FP) PO ONE (17:30)
[2017-02-17] MEDS: THIAMINE HCL 100 MG TABLET (FP) PO SCH (22:25)
[2017-02-18] MEDS ORDERED: METHADONE HCL 40 MG DISPERSABLE TABLET ONE (04:37)
[2017-02-18] MEDS ORDERED: METHADONE HCL 10 MG TABLET ONE (04:37)
[2017-02-18] MEDS: METHADONE PO SCH (05:36)
[2017-02-18 06:38] VITALS: BP 112/63; PULSE 80; TEMP 98.1
--- NOTE | 2017-02-18 08:52 | DS ---
[facility] Detox Discharge Summary Admission Date: 02/14/17 Discharge Date: 02/18/17 - History Present History: Cannabis Dependence, Sedative Dependence, MMTP Additional Comments: [place] [facility] [place] - Physical Exam Results Vital Signs: Vital Signs Temperature 98.1 F 02/18/17 06:37 Pulse Rate 80 02/18/17 06:37 Respiratory Rate 18 02/18/17 06:37 Blood Pressure 112/63 02/18/17 06:37 O2 Sat by Pulse Oximetry (%) Laboratory Tests 02/14/17 02/15/17 02/15/17 15:00 07:00 07:00 WBC 8.2 RBC 4.32 Hgb 11.3 L D Hct 34.5 L MCV 79.9 L MCH 26.2 MCHC 32.8 RDW 17.3 H D Plt Count 423 MPV 9.0 Sodium 141 Potassium 4.7 Chloride 108 H Carbon Dioxide 27 Anion Gap 6 L BUN 12 D Creatinine 0.6 L D Creat Clearance w eGFR > 60 Random Glucose 110 H D Calcium 8.3 L Total Bilirubin 0.2 D AST 21 D ALT 32 D Alkaline Phosphatase 91 Total Protein 7.2 Albumin 3.3 L Urine Color Yellow Urine Appearance Clear Urine pH 6.0 Ur Specific [place] 1.030 Urine Protein Negative Urine Glucose (UA) Negative Urine Ketones Negative Urine Blood Negative Urine Nitrite Negative Urine Bilirubin Negative Urine Urobilinogen Normal Ur Leukocyte Esterase Negative RPR Titer 02/15/17 07:00 WBC RBC Hgb Hct MCV MCH MCHC RDW Plt Count MPV Sodium Potassium Chloride Carbon Dioxide Anion Gap BUN Creatinine Creat Clearance w eGFR Random Glucose Calcium Total Bilirubin AST ALT Alkaline Phosphatase Total Protein Albumin Urine Color Urine Appearance Urine pH Ur Specific [place] Urine Protein Urine Glucose (UA) Urine Ketones Urine Blood Urine Nitrite Urine Bilirubin Urine Urobilinogen Ur Leukocyte Esterase RPR Titer Nonreactive Pertinent Admission Physical Exam Findings: withdrawal sx, dehydrataion , depression, anemia on admission - Treatment Hospital Course: Detox Protocol Followed, Detoxed Safely, Responded well, Discharged Condition Good, Rehab Referral Accepted - Medication Discharge Medications: Ambulatory Orders Methadone [Dolophine -] 300 mg PO DAILY@0600 tablet MDD 300 02/18/17 - Diagnosis (1) Dehydration Status: Acute (2) Depression Status: Acute (3) Cannabis dependence, uncomplicated Status: Acute (4) Nicotine dependence Status: Acute Qualifiers: Nicotine product type: cigarettes Substance use status: in withdrawal Qualified Code(s): F17.213 - Nicotine dependence, cigarettes, with withdrawal (5) Sedative, hypnotic or anxiolytic dependence with withdrawal, uncomplicated Status: Acute (6) Methadone maintenance therapy patient Status: Chronic - AMA Did Patient Leave Against Medical Advice: No
[2017-02-18] MEDS ORDERED: diazePAM 5 MG TABLET PO SCH (10:00)
== END 2017-02-18 09:13 | disposition home or self-care (01) | DRG 773 ==
LOC: YASAS 13:17 → Y6N 15:12
PROVIDERS: ADMIT Internal Medicine; ATTEND Internal Medicine
PROC: HZ2ZZZZ Detoxification Services for Substance Abuse Treatment (ICD-10-PCS; principal; 2017-02-14)
DX: F11.20 Opioid dependence, uncomplicated (principal); F13.230 Sedative, hypnotic or anxiolytic dependence with withdrawal, uncomplicated; F12.20 Cannabis dependence, uncomplicated; F32.9 Major depressive disorder, single episode, unspecified; F41.9 Anxiety disorder, unspecified; E86.0 Dehydration
CPT/HCPCS: 36415; 80053; 81003; 85027; 86593; 93005; 93010

== ENCOUNTER 2017-05-29 15:34 | Inpatient (IN) | payer OTHER ==
[2017-05-29 15:58] VITALS: BMI 19.4
--- NOTE | 2017-05-29 19:40 | HP ---
CIWA Score - CIWA Score Nausea/Vomitin Muscle Tremors: 3 Anxiety: 3 Agitation: 3 Paroxysmal Sweats: 3 Orientation: 0-Oriented Tacttile Disturbances: 0-None Auditory Disturbances: 0-None Visual Disturbances: 0-None Headache: 2-Mild CIWA-Ar Total Score: 17 Admission ROS BHS - HPI Allergies/Adverse Reactions: Allergies Allergy/AdvReac Type Severity Reaction Status Date / Time No Known Allergies Allergy Verified 02/14/17 13:42 History of Present Illness: 26 y/o male with a one year history of benzo addiction presents today for detox. Pt is on a MMTP with his ID card, he self medicated today because he was given his bottle from the center. Denies hx of SI now. Denies any medical or psychiatric hx. Exam Limitations: No Limitations - Ebola screening Have you traveled outside of the country in the last 21 days: No (N) Have you had contact with anyone from an Ebola affected area: No Have you been sick,other than usual withdrawal symptoms: No Do you have a fever: No - Review of Systems Constitutional: Chills, Unintentional Wgt. Loss EENT: reports: Nose Congestion Respiratory: reports: No Symptoms reported Cardiac: reports: No Symptoms Reported GI: reports: Nausea, Abdominal cramping : reports: No Symptoms Reported Musculoskeletal: reports: Back Pain, Muscle Pain Integumentary: reports: Other (track barrios in both arms) Neuro: reports: Headache Endocrine: reports: [place] Hematology: reports: No Symptoms Reported Psychiatric: reports: Judgement Intact, Mood/Affect Appropiate, Orientated x3, Anxious Other Systems: Reviewed and Negative Patient History - Patient Medical History Hx Anemia: No Hx Asthma: No Hx Chronic Obstructive Pulmonary Disease (COPD): No Hx Cancer: No Hx Cardiac Disorders: No Hx Congestive Heart Failure: No Hx Hypertension: No Hx Hypercholesterolemia: No Hx Pacemaker: No HX Cerebrovascular Accident: No Hx Seizures: No Hx Dementia: No Hx Diabetes: No Hx Gastrointestinal Disorders: No Hx Liver Disease: No Hx Genitourinary Disorders: No Hx Sexually Transmitted Disorders: No Hx Renal Disease (ESRD): No Hx Thyroid Disease: No Hx Human Immunodeficiency Virus (HIV): No (negative) Hx Hepatitis C: No (negative) Hx Depression: Yes Hx Suicide Attempt: No Hx Bipolar Disorder: No Hx Schizophrenia: No - Patient Surgical History Past Surgical History: No Hx Neurologic Surgery: No Hx Cataract Extraction: No Hx Cardiac Surgery: No Hx Lung Surgery: No Hx Breast Surgery: No Hx Breast Biopsy: No Hx Abdominal Surgery: No Hx Appendectomy: No Hx Cholecystectomy: No Hx Genitourinary Surgery: No Hx Section: No Hx Orthopedic Surgery: No Anesthesia Reaction: No - PPD History Previous Implant?: Yes Documented Results: Negative w/proof Date: 02/16/17 Results: 0mm PPD to be Administered?: No - Reproductive History Patient is a Female of Child Bearing Age (11 -55 yrs old): No - Smoking Cessation Smoking history: Current every day smoker Have you smoked in the past 12 months: Yes Aproximately how many cigarettes per day: 10 Cigars Per Day: 0 Hx Chewing Tobacco Use: No Initiated information on smoking cessation: Yes 'Breaking Loose' booklet given: 05/29/17 - Substances Abused Alprazolam (Xanax) Route: Oral Frequency: Daily Amount used: 6mg Age of first use: 26 Date of Last Use: 05/28/17 Cocaine Route: Injection Frequency: 3-6 times per week Amount used: $10- $20 Age of first use: 23 Date of Last Use: 05/28/17 Marijuana/Hashish Route: Smoking Frequency: 3-6 times per week Amount used: $10 Age of first use: 15 Date of Last Use: 05/28/17 Family Disease History - Family Disease History Family Disease History: Diabetes: Father (BLOOD CLOT ), Brother, Heart Disease: Mother (), Other: Father Admission Physical Exam S - Vital Signs Vital Signs: Vital Signs - 24 hr 05/29/17 15:50 Temperature 98.4 F Pulse Rate 62 Respiratory 20 Rate Blood Pressure 151/83 - Physical General Appearance: Yes: Moderate Distress HEENTM: Yes: Nasal Congestion Respiratory: Yes: Within Normal Limits, Normal Breath Sounds, No Respiratory Distress, No Accessory Muscle Use Neck: Yes: No masses,lesions,Nodules Breast: Yes: Breast Exam Deferred Cardiology: Yes: Regular Rate, S1, S2 Abdominal: Yes: Normal Bowel Sounds, Non Tender, Soft Genitourinary: Yes: Within Normal Limits Back: Yes: Normal Inspection Integumentary: Yes: Track Barrios (in both arms, not infected) Lymphatic: Yes: Within Normal Limits - Diagnostic (1) Sedative, hypnotic or anxiolytic dependence with withdrawal, uncomplicated Current Visit: No Status: Acute (2) Methadone maintenance therapy patient Current Visit: No Status: Chronic (3) Nicotine dependence Current Visit: No Status: Acute Qualifiers: Nicotine product type: cigarettes Substance use status: in withdrawal Qualified Code(s): F17.213 - Nicotine dependence, cigarettes, with withdrawal (4) Cannabis dependence, uncomplicated Current Visit: No Status: Acute (5) Depression Current Visit: No Status: Acute Cleared for Admission [facility] - Detox or Rehab [facility] Level of Care: Medically Managed Detox Regimen/Protocol: Valium S Breath Alcohol Content Breath Alcohol Content: 0 Urine Drug Screen - Results Drug Screen Negative: No Urine Drug Screen Results: THC-Marijuana, REENA-Cocaine, OPI-Opiates, BAR- Barbiturates, BZO-Benzodiazepines, MTD-Methadone, TCA-Tricyclic Antidepress, OXY -Oxycodone
[2017-05-29] MEDS ORDERED: LOPERAMIDE HCL 2 MG CAPSULE PO PRN (19:56)
[2017-05-29] MEDS ORDERED: MAGNESIUM CITRATE 300 ML BOTTLE PO PRN (19:56)
[2017-05-29] MEDS ORDERED: IBUPROFEN 400 MG TABLET (FP) PO PRN (19:56)
[2017-05-29] MEDS ORDERED: MENTHOL/PHENOL 1 EACH UD MM PRN (19:56)
[2017-05-29] MEDS ORDERED: ACETAMINOPHEN 325 MG TABLET (FP) PO PRN (19:56)
[2017-05-29] MEDS ORDERED: NICOTINE POLACRILEX 2 MG GUM BUC PRN (19:56)
[2017-05-29] MEDS ORDERED: guaiFENesin/D-METHORPHAN HB 10 ML UNIT-DOSE CUPS PO PRN (19:56)
[2017-05-29] MEDS ORDERED: MAG HYDROX/AL HYDROX/SIMETH 30 ML UNIT-DOSE CUP PO PRN (19:56)
[2017-05-29] MEDS ORDERED: MAGNESIUM HYDROX 2400MG/30ML ORAL SUSPENSION 30 ML CUP PO PRN (19:56)
[2017-05-29] MEDS ORDERED: P-EPHED 60MG/TRIPROLIDI 2.5MG TABLET PO PRN (19:56)
[2017-05-29] MEDS ORDERED: diazePAM 5 MG TABLET PO ONE (20:15)
[2017-05-29] MEDS: NICOTINE 14 MG/24 HOURS TOPICAL PATCH TD SCH (20:46)
[2017-05-29] MEDS: diazePAM 5 MG TABLET PO SCH (22:43)
[2017-05-29] MEDS: THIAMINE HCL 100 MG TABLET (FP) PO SCH (22:43)
[2017-05-29] MEDS: hydrOXYzine PAMOATE 50 MG CAPSULE (FP) PO PRN (22:44)
[2017-05-29 23:59] LABS: URINE APPEARANCE CLEAR; URINE BILIRUBIN NEGATIVE (NEGATIVE); URINE BLOOD NEGATIVE (NEGATIVE); URINE COLOR DKYELLOW; URINE GLUCOSE (UA) NEGATIVE (NEGATIVE); URINE KETONE NEGATIVE (NEGATIVE); URINE LEUK ESTERASE TRACE (NEGATIVE); URINE NITRITE NEGATIVE (NEGATIVE); URINE PROTEIN NEGATIVE (NEGATIVE); URINE UROBILINOGEN 4.0 E.U/dl mg/dL (0.2-1.0)
[2017-05-30 00:06] LABS: CALCIUM OXALATE CRYSTALS RARE /hpf (NONE SEEN); URINE BACTERIA RARE /hpf (NONE SEEN); URINE MUCUS MANY
[2017-05-30] MEDS: diazePAM 5 MG TABLET PO SCH ×3 (06:42→22:10)
[2017-05-30] MEDS ORDERED: METHADONE HCL 40 MG DISPERSABLE TABLET PO SCH (09:15)
[2017-05-30] MEDS ORDERED: METHADONE HCL 10 MG TABLET ONE (09:50)
[2017-05-30] MEDS ORDERED: METHADONE HCL 40 MG DISPERSABLE TABLET ONE (09:51)
[2017-05-30] MEDS: METHADONE PO SCH (09:55)
[2017-05-30] MEDS: PRENATAL VITAMINS W/ FOLIC ACID TABLET (FP) PO SCH (09:56)
[2017-05-30] MEDS: NICOTINE 14 MG/24 HOURS TOPICAL PATCH TD SCH (09:56)
[2017-05-30 10:10] LABS: HEMATOCRIT 35.8 % (35.4-49); HEMOGLOBIN 11.8 GM/dL (11.7-16.9); MCH 26.6 pg (25.7-33.7); MCHC 32.9 g/dl (32.0-35.9); MEAN CELL VOLUME 80.9 fl (80-96); MEAN PLT VOLUME 9.4 fl (7.5-11.1); PLATELET COUNT 195 K/MM3 (134-434); RBC 4.42 M/mm3 (4.00-5.60); WHITE BLOOD COUNT 5.2 K/mm3 (4.0-10.0)
[2017-05-30 10:20] LABS: CHLORIDE 104 mmol/L (98-107); POTASSIUM 4.1 mmol/L (3.5-5.1); SODIUM 138 mmol/L (136-145)
[2017-05-30 10:45] LABS: ALBUMIN 2.9 g/dl (3.4-5.0); ALK PHOS 159 U/L (45-117); ANION GAP 8 (8-16); BILIRUBIN,TOTAL 0.8 mg/dL (0.2-1.0); BLOOD UREA NITROGEN 11 mg/dL (7-18); CALCIUM 7.8 mg/dL (8.5-10.1); CO2 26 mmol/L (21-32); CREATININE 0.6 mg/dL (0.7-1.3); GLUCOSE,RANDOM 81 mg/dL (74-106); TOT PROT 6.2 g/dl (6.4-8.2)
[2017-05-30 10:50] LABS: SGOT/AST 418 U/L (15-37); SGPT/ALT 454 U/L (12-78)
--- NOTE | 2017-05-30 12:15 | CONSULT ---
[facility] Psychiatric Consult - Data Date of interview: 05/30/17 Admission source: [facility] Identifying data: Readmission to [facility] for this [place]-born male seeking detox treatment,on ,for opioid,xanax,marihuana and cocaine dependence.Patient is ,a father of two,domiciled (lives with relatives), unemployed and supported on food stamps. Substance Abuse History: Discussed in this interview.Mr Macias admits to continuous use of cannabis,cocaine,xanax for several years.On methadone maintenance. Details in current [facility] report.Endorsed as accurate by the patient : Smoking history: Current every day smoker. Have you smoked in the past 12 months: Yes. Aproximately how many cigarettes per day: 10. Cigars Per Day: 0. Hx Chewing Tobacco Use: No. Initiated information on smoking cessation: Yes. 'Breaking Loose' booklet given: 05/29/17. - Substances Abused. Alprazolam (Xanax). Route: Oral. Frequency: Daily. Amount used: 6mg. Age of first use: 26. Date of Last Use: 05/28/17. Cocaine. Route: Injection. Frequency: 3-6 times per week. Amount used: $10- $20. Age of first use: 23. Date of Last Use: 05/28/17. Marijuana/Hashish. Route: Smoking. Frequency: 3-6 times per week. Amount used: $10. Age of first use: 15. Date of Last Use : 05/28/17 Medical History: Patient endorses good general health. Psychiatric History: Patient denies history of psychiatric hospitalizations.Mr Wright admits to current methadone maintenance (300 mg/day) at the [facility] program in [facility].No reported history of suicide attempts. Physical/Sexual Abuse/Trauma History: Patient denies. Additional Comment: THC-Marijuana, REENA-Cocaine, OPI-Opiates, BAR-Barbiturates, BZO-Benzodiazepines, MTD-Methadone, TCA-Tricyclic Antidepressant, OXY- Oxycodone.Noted. Mental Status Exam - Mental Status Exam Alert and Oriented to: Time, Place, Person Cognitive Function: Good Patient Appearance: Well Groomed Mood: Nervous, Withdrawn, Hopeful Affect: Mood Congruent Patient Behavior: Fatigued, Appropriate, Cooperative Speech Pattern: Clear, Appropriate Voice Loudness: Normal Thought Process: Intact, Goal Oriented Thought Disorder: Not Present Hallucinations: Denies Suicidal Ideation: Denies Homicidal Ideation: Denies Insight/Judgement: Poor Sleep: Poorly, Difficulty falling asleep Appetite: Good Muscle strength/Tone: Normal Gait/Station: Normal Psychiatric Findings - Problem List ([place] 1, 2,3) (1) Opioid dependence on agonist therapy Current Visit: Yes Status: Acute (2) Cocaine dependence Current Visit: Yes Status: Acute (3) Sedative, hypnotic or anxiolytic dependence with withdrawal, uncomplicated Current Visit: Yes Status: Acute (4) Cannabis dependence, uncomplicated Current Visit: Yes Status: Acute (5) Nicotine dependence Current Visit: Yes Status: Acute Qualifiers: Nicotine product type: cigarettes Substance use status: in withdrawal Qualified Code(s): F17.213 - Nicotine dependence, cigarettes, with withdrawal (6) Insomnia Current Visit: Yes Status: Acute - Initial Treatment Plan Initial Treatment Plan: Records are revisited.Sleep hygiene.Psychoeducation and support.Detoxification in progress.Ambien 5 mg po hs prn.Patient is made aware of the risk of parasomnias (sleep-walking).Mr Wright gave his consent (verbal) for this careplan.Observation.
--- NOTE | 2017-05-30 13:52 | PN ---
S CIWA - CIWA Score Nausea/Vomitin Muscle Tremors: 3 Anxiety: 3 Agitation: 3 Paroxysmal Sweats: 3 Orientation: 0-Oriented Tacttile Disturbances: 0-None Auditory Disturbances: 0-None Visual Disturbances: 0-None Headache: 0-None Present CIWA-Ar Total Score: 14 S Progress Note (SOAP) Subjective: sleepless shakes sweats Objective: 05/30/17 13:47 Sleeping, arousable to verbal prompt A & O x 3 Vital Signs Temperature 97.2 F L 05/30/17 13:23 Pulse Rate 62 05/30/17 13:23 Respiratory Rate 16 05/30/17 13:23 Blood Pressure 104/64 05/30/17 13:23 O2 Sat by Pulse Oximetry (%) Laboratory Last Values WBC 5.2 K/mm3 (4.0-10.0) D 05/30/17 07:00 RBC 4.42 M/mm3 (4.00-5.60) 05/30/17 07:00 Hgb 11.8 GM/dL (11.7-16.9) 05/30/17 07:00 Hct 35.8 % (35.4-49) 05/30/17 07:00 MCV 80.9 fl (80-96) 05/30/17 07:00 MCH 26.6 pg (25.7-33.7) 05/30/17 07:00 MCHC 32.9 g/dl (32.0-35.9) 05/30/17 07:00 RDW 16.0 % (11.9-15.9) H 05/30/17 07:00 Plt Count 195 K/MM3 (134-434) D 05/30/17 07:00 MPV 9.4 fl (7.5-11.1) 05/30/17 07:00 Sodium 138 mmol/L (136-145) 05/30/17 07:00 Potassium 4.1 mmol/L (3.5-5.1) 05/30/17 07:00 Chloride 104 mmol/L (98-107) 05/30/17 07:00 Carbon Dioxide 26 mmol/L (21-32) 05/30/17 07:00 Anion Gap 8 (8-16) 05/30/17 07:00 BUN 11 mg/dL (7-18) 05/30/17 07:00 Creatinine 0.6 mg/dL (0.7-1.3) L 05/30/17 07:00 Creat Clearance w eGFR > 60 (>60) 05/30/17 07:00 Random Glucose 81 mg/dL (74-106) D 05/30/17 07:00 Calcium 7.8 mg/dL (8.5-10.1) L 05/30/17 07:00 Total Bilirubin 0.8 mg/dL (0.2-1.0) D 05/30/17 07:00 AST 418 U/L (15-37) H D 05/30/17 07:00 ALT 454 U/L (12-78) H D 05/30/17 07:00 Alkaline Phosphatase 159 U/L (45-117) H D 05/30/17 07:00 Total Protein 6.2 g/dl (6.4-8.2) L 05/30/17 07:00 Albumin 2.9 g/dl (3.4-5.0) L 05/30/17 07:00 Urine Color Dkyellow 05/29/17 20:00 Urine Appearance Clear 05/29/17 20:00 Urine pH 5.0 (5.0-8.0) 05/29/17 20:00 Ur Specific [place] 1.026 (1.001-1.035) 05/29/17 20:00 Urine Protein Negative (NEGATIVE) 05/29/17 20:00 Urine Glucose (UA) Negative (NEGATIVE) 05/29/17 20:00 Urine Ketones Negative (NEGATIVE) 05/29/17 20:00 Urine Blood Negative (NEGATIVE) 05/29/17 20:00 Urine Nitrite Negative (NEGATIVE) 05/29/17 20:00 Urine Bilirubin Negative (NEGATIVE) 05/29/17 20:00 Urine Urobilinogen 4.0 e.u/dl mg/dL (0.2-1.0) 05/29/17 20:00 Ur Leukocyte Esterase Trace (NEGATIVE) 05/29/17 20:00 Urine WBC (Auto) None /hpf (3-5) 05/29/17 20:00 Urine RBC (Auto) 2 /hpf (0-3) 05/29/17 20:00 Calcium Oxalate Crystal Rare /hpf (NONE SEEN) 05/29/17 20:00 Urine Bacteria Rare /hpf (NONE SEEN) 05/29/17 20:00 Urine Mucus Many 05/29/17 20:00 RPR Titer Nonreactive (NONREACTIVE) 05/30/17 07:00 labs noted, elevated liver enzymes, elevated urobilinogen, dk urine Assessment: 05/30/17 13:52 withdrawal sx liver damage Plan: continue detox increase hydration
[2017-05-30] MEDS: diazePAM 5 MG TABLET PO PRN ×2 (15:16→20:02)
[2017-05-30] MEDS: THIAMINE HCL 100 MG TABLET (FP) PO SCH (22:10)
[2017-05-30] MEDS: ZOLPIDEM TARTRATE 5 MG TABLET PO PRN (22:10)
[2017-05-31] MEDS ORDERED: METHADONE HCL 10 MG TABLET ONE (04:21)
[2017-05-31] MEDS ORDERED: METHADONE HCL 40 MG DISPERSABLE TABLET ONE (04:21)
[2017-05-31] MEDS: diazePAM 5 MG TABLET PO PRN ×3 (05:31→18:11)
[2017-05-31] MEDS: METHADONE PO SCH (05:33)
[2017-05-31] MEDS: PRENATAL VITAMINS W/ FOLIC ACID TABLET (FP) PO SCH (10:05)
[2017-05-31] MEDS: NICOTINE 14 MG/24 HOURS TOPICAL PATCH TD SCH (10:05)
[2017-05-31] MEDS: diazePAM 5 MG TABLET PO SCH ×2 (10:05→22:13)
[2017-05-31] MEDS: DOCUSATE SODIUM 100 MG CAPSULE (FP) PO SCH ×2 (11:49→22:13)
[2017-05-31] MEDS: SENNOSIDES 8.6MG TABLET (FP) PO SCH ×2 (11:49→22:13)
--- NOTE | 2017-05-31 12:08 | PN ---
[facility] CIWA - CIWA Score Nausea/Vomitin-No Nausea/No Vomiting Muscle Tremors: 2 Anxiety: 4-Mod. Anxious/Guarded Agitation: 4-Moderately Restless Paroxysmal Sweats: 3 Orientation: 0-Oriented Tacttile Disturbances: 3-Moderate Itch/Numb/Burn Auditory Disturbances: 0-None Visual Disturbances: 2-Mild Sensitivity Headache: 0-None Present CIWA-Ar Total Score: 18 BHS Progress Note (SOAP) Subjective: Constipation, Tremors, Sweating, Anxious, Stomach Cramping. Objective: PATIENT A & O X 3, OBSERVED AMBULATING ON UNIT. NO ACUTE DISTRESS. 05/31/17 12:06 Vital Signs Temperature 99.9 F H 05/31/17 10:08 Pulse Rate 65 05/31/17 10:08 Respiratory Rate 18 05/31/17 10:08 Blood Pressure 104/54 05/31/17 10:08 O2 Sat by Pulse Oximetry (%) Laboratory Tests 05/29/17 05/30/17 05/30/17 20:00 07:00 07:00 WBC 5.2 D RBC 4.42 Hgb 11.8 Hct 35.8 MCV 80.9 MCH 26.6 MCHC 32.9 RDW 16.0 H Plt Count 195 D MPV 9.4 Sodium 138 Potassium 4.1 Chloride 104 Carbon Dioxide 26 Anion Gap 8 BUN 11 Creatinine 0.6 L Creat Clearance w eGFR > 60 Random Glucose 81 D Calcium 7.8 L Total Bilirubin 0.8 D AST 418 H D ALT 454 H D Alkaline Phosphatase 159 H D Total Protein 6.2 L Albumin 2.9 L Urine Color Dkyellow Urine Appearance Clear Urine pH 5.0 Ur Specific [place] 1.026 Urine Protein Negative Urine Glucose (UA) Negative Urine Ketones Negative Urine Blood Negative Urine Nitrite Negative Urine Bilirubin Negative Urine Urobilinogen 4.0 e.u/dl Ur Leukocyte Esterase Trace Urine WBC (Auto) None Urine RBC (Auto) 2 Calcium Oxalate Crystal Rare Urine Bacteria Rare Urine Mucus Many RPR Titer 05/30/17 07:00 WBC RBC Hgb Hct MCV MCH MCHC RDW Plt Count MPV Sodium Potassium Chloride Carbon Dioxide Anion Gap BUN Creatinine Creat Clearance w eGFR Random Glucose Calcium Total Bilirubin AST ALT Alkaline Phosphatase Total Protein Albumin Urine Color Urine Appearance Urine pH Ur Specific [place] Urine Protein Urine Glucose (UA) Urine Ketones Urine Blood Urine Nitrite Urine Bilirubin Urine Urobilinogen Ur Leukocyte Esterase Urine WBC (Auto) Urine RBC (Auto) Calcium Oxalate Crystal Urine Bacteria Urine Mucus RPR Titer Nonreactive labs noted. Assessment: 05/31/17 12:07 WITHDRAWAL SYMPTOMS. Plan: CONTINUE DETOX. INCREASE DAILY PO FLUID INTAKE. COLACE, SENNA BID FOR CONSTIPATION. REPEAT CMP ALONG WITH PT/INR AND HCV AB TOMORROW AM FOR ELEVATED ADMISSION LIVER ENZYMES.
--- NOTE | 2017-05-31 12:15 | EKG ---
Test Reason : Blood Pressure : / mmHG Vent. Rate : 073 BPM Atrial Rate : 073 BPM P-R Int : 134 ms QRS Dur : 084 ms QT Int : 424 ms P-R-T Axes : 077 046 030 degrees QTc Int : 467 ms NORMAL SINUS RHYTHM NORMAL ECG WHEN COMPARED WITH ECG OF 14-FEB-2017 17:13, NO SIGNIFICANT CHANGE WAS FOUND Confirmed by MD SONAM, THOMAS ([id number]) on 05/31/2017 12:15:02 PM Referred By: Confirmed By:THOMAS MASTERS MD
[2017-05-31] MEDS: BENZOCAINE 20 % GEL 9 GM TUBE MM PRN (18:09)
[2017-05-31] MEDS: THIAMINE HCL 100 MG TABLET (FP) PO SCH (22:13)
[2017-05-31] MEDS: ZOLPIDEM TARTRATE 5 MG TABLET PO PRN (22:13)
[2017-06-01] MEDS: diazePAM 5 MG TABLET PO PRN ×4 (01:30→18:28)
[2017-06-01] MEDS ORDERED: METHADONE HCL 40 MG DISPERSABLE TABLET ONE (04:01)
[2017-06-01] MEDS ORDERED: METHADONE HCL 10 MG TABLET ONE (04:01)
[2017-06-01] MEDS: METHADONE PO SCH (05:58)
[2017-06-01 10:22] LABS: INR 0.93 (0.82-1.09); PROTHROMBIN TIME (PATIENT) 10.5 SEC (9.98-11.88)
[2017-06-01 10:38] LABS: ANION GAP 10 (8-16); BILIRUBIN,TOTAL 0.4 mg/dL (0.2-1.0); BLOOD UREA NITROGEN 9 mg/dL (7-18); CHLORIDE 101 mmol/L (98-107); CO2 29 mmol/L (21-32); CREATININE 0.6 mg/dL (0.7-1.3); GLUCOSE,RANDOM 109 mg/dL (74-106); POTASSIUM 4.5 mmol/L (3.5-5.1); SGOT/AST 162 U/L (15-37); SODIUM 140 mmol/L (136-145); TOT PROT 7.1 g/dl (6.4-8.2)
[2017-06-01 10:39] LABS: ALK PHOS 180 U/L (45-117)
[2017-06-01] MEDS: DOCUSATE SODIUM 100 MG CAPSULE (FP) PO SCH ×2 (10:39→22:19)
[2017-06-01] MEDS: diazePAM 5 MG TABLET PO SCH ×2 (10:40→22:18)
[2017-06-01] MEDS: SENNOSIDES 8.6MG TABLET (FP) PO SCH ×2 (10:40→22:19)
[2017-06-01] MEDS: NICOTINE 14 MG/24 HOURS TOPICAL PATCH TD SCH (10:40)
[2017-06-01] MEDS: PRENATAL VITAMINS W/ FOLIC ACID TABLET (FP) PO SCH (10:40)
[2017-06-01 10:53] LABS: SGPT/ALT 407 U/L (12-78)
--- NOTE | 2017-06-01 11:27 | PN ---
S CIWA - CIWA Score Nausea/Vomitin Muscle Tremors: 2 Anxiety: 3 Agitation: 2 Paroxysmal Sweats: 2 Orientation: 0-Oriented Tacttile Disturbances: 1-Very Mild Itch/Numbness Auditory Disturbances: 0-None Visual Disturbances: 0-None Headache: 0-None Present CIWA-Ar Total Score: 12 S Progress Note (SOAP) Subjective: interrupted sleep,anxiety , sweats Objective: 06/01/17 11:25 Vital Signs Period Temp Pulse Resp BP Sys/Argueta Pulse Ox Last 24 Hr 96.9 F-98.2 F 61-70 -18 95-123/57-72 Vital Signs Temperature 98.2 F 06/01/17 10:04 Pulse Rate 70 06/01/17 10:04 Respiratory Rate 18 06/01/17 10:04 Blood Pressure 123/72 06/01/17 10:04 O2 Sat by Pulse Oximetry (%) Laboratory Tests 05/29/17 05/30/17 05/30/17 20:00 07:00 07:00 WBC 5.2 D RBC 4.42 Hgb 11.8 Hct 35.8 MCV 80.9 MCH 26.6 MCHC 32.9 RDW 16.0 H Plt Count 195 D MPV 9.4 PT with INR INR Sodium 138 Potassium 4.1 Chloride 104 Carbon Dioxide 26 Anion Gap 8 BUN 11 Creatinine 0.6 L Creat Clearance w eGFR > 60 Random Glucose 81 D Calcium 7.8 L Total Bilirubin 0.8 D AST 418 H D ALT 454 H D Alkaline Phosphatase 159 H D Total Protein 6.2 L Albumin 2.9 L Urine Color Dkyellow Urine Appearance Clear Urine pH 5.0 Ur Specific [place] 1.026 Urine Protein Negative Urine Glucose (UA) Negative Urine Ketones Negative Urine Blood Negative Urine Nitrite Negative Urine Bilirubin Negative Urine Urobilinogen 4.0 e.u/dl Ur Leukocyte Esterase Trace Urine WBC (Auto) None Urine RBC (Auto) 2 Calcium Oxalate Crystal Rare Urine Bacteria Rare Urine Mucus Many RPR Titer 05/30/17 06/01/17 06/01/17 07:00 07:00 07:00 WBC RBC Hgb Hct MCV MCH MCHC RDW Plt Count MPV PT with INR 10.50 INR 0.93 Sodium 140 Potassium 4.5 Chloride 101 Carbon Dioxide 29 Anion Gap 10 BUN 9 Creatinine 0.6 L Creat Clearance w eGFR > 60 Random Glucose 109 H D Calcium 9.0 Total Bilirubin 0.4 D AST 162 H D ALT 407 H Alkaline Phosphatase 180 H Total Protein 7.1 Albumin 3.0 L Urine Color Urine Appearance Urine pH Ur Specific [place] Urine Protein Urine Glucose (UA) Urine Ketones Urine Blood Urine Nitrite Urine Bilirubin Urine Urobilinogen Ur Leukocyte Esterase Urine WBC (Auto) Urine RBC (Auto) Calcium Oxalate Crystal Urine Bacteria Urine Mucus RPR Titer Nonreactive 06/01/17 15:59 pt aox3 lying in bed in nad Assessment: 06/01/17 11:26 withdrawal sx elevated transaminases -repeat study improved Plan: cont.dtox increase fluids
[2017-06-01] MEDS: BENZOCAINE 20 % GEL 9 GM TUBE MM PRN ×2 (13:51→21:19)
[2017-06-01] MEDS: ZOLPIDEM TARTRATE 5 MG TABLET PO PRN (22:19)
[2017-06-01] MEDS: THIAMINE HCL 100 MG TABLET (FP) PO SCH (22:19)
[2017-06-02] MEDS ORDERED: METHADONE HCL 10 MG TABLET ONE (04:22)
[2017-06-02] MEDS ORDERED: METHADONE HCL 40 MG DISPERSABLE TABLET ONE (04:23)
[2017-06-02] MEDS: METHADONE PO SCH (05:41)
[2017-06-02] MEDS: hydrOXYzine PAMOATE 50 MG CAPSULE (FP) PO PRN (05:41)
[2017-06-02] MEDS ORDERED: diazePAM 5 MG TABLET PO SCH (10:00)
[2017-06-02 11:12] VITALS: BP 90/81; PULSE 60; TEMP 98.2
--- NOTE | 2017-06-02 20:19 | PN ---
S Progress Note (SOAP) Subjective: Patient denies any current Detox symptoms and reports that he is feeling well overall. Objective: PATIENT A & O X 3, OBSERVED AMBULATING ON UNIT. NO ACUTE DISTRESS. 06/02/17 20:15 Vital Signs Temperature 98.2 F 06/02/17 10:00 Pulse Rate 60 06/02/17 10:00 Respiratory Rate 18 06/02/17 10:00 Blood Pressure 90/81 06/02/17 10:00 O2 Sat by Pulse Oximetry (%) Laboratory Tests 05/29/17 05/30/17 05/30/17 20:00 07:00 07:00 WBC 5.2 D RBC 4.42 Hgb 11.8 Hct 35.8 MCV 80.9 MCH 26.6 MCHC 32.9 RDW 16.0 H Plt Count 195 D MPV 9.4 PT with INR INR Sodium 138 Potassium 4.1 Chloride 104 Carbon Dioxide 26 Anion Gap 8 BUN 11 Creatinine 0.6 L Creat Clearance w eGFR > 60 Random Glucose 81 D Calcium 7.8 L Total Bilirubin 0.8 D AST 418 H D ALT 454 H D Alkaline Phosphatase 159 H D Total Protein 6.2 L Albumin 2.9 L Urine Color Dkyellow Urine Appearance Clear Urine pH 5.0 Ur Specific [place] 1.026 Urine Protein Negative Urine Glucose (UA) Negative Urine Ketones Negative Urine Blood Negative Urine Nitrite Negative Urine Bilirubin Negative Urine Urobilinogen 4.0 e.u/dl Ur Leukocyte Esterase Trace Urine WBC (Auto) None Urine RBC (Auto) 2 Calcium Oxalate Crystal Rare Urine Bacteria Rare Urine Mucus Many RPR Titer 05/30/17 06/01/17 06/01/17 07:00 07:00 07:00 WBC RBC Hgb Hct MCV MCH MCHC RDW Plt Count MPV PT with INR 10.50 INR 0.93 Sodium 140 Potassium 4.5 Chloride 101 Carbon Dioxide 29 Anion Gap 10 BUN 9 Creatinine 0.6 L Creat Clearance w eGFR > 60 Random Glucose 109 H D Calcium 9.0 Total Bilirubin 0.4 D AST 162 H D ALT 407 H Alkaline Phosphatase 180 H Total Protein 7.1 Albumin 3.0 L Urine Color Urine Appearance Urine pH Ur Specific [place] Urine Protein Urine Glucose (UA) Urine Ketones Urine Blood Urine Nitrite Urine Bilirubin Urine Urobilinogen Ur Leukocyte Esterase Urine WBC (Auto) Urine RBC (Auto) Calcium Oxalate Crystal Urine Bacteria Urine Mucus RPR Titer Nonreactive LABS NOTED. Assessment: 06/02/17 20:15 COMPLETION OF DETOX REGIMEN. 06/02/17 20:18 Plan: PATIENT SCHEDULED FOR DISCHARGE TODAY. PATIENT GOING HOME TO ATTEND TO PERSONAL ISSUES AND WILL RETURN FOR REHAB AT EITHER [facility] ([place], [place] ) OR TO [facility] ([place], [place] FOR AFTERCARE.
--- NOTE | 2017-06-02 20:21 | DS ---
[facility] Detox Discharge Summary Admission Date: 05/29/17 Discharge Date: 06/02/17 - History Present History: Cannabis Dependence, Cocaine Dependence, Opioid Dependence, Sedative Dependence, MMTP Additional Comments: PATIENT GOING HOME TO ATTEND TO PERSONAL ISSUES AND WILL INQUIRE ABOUT POSSIBLE ADMISSION [facility] OR [facility] ( [place] IN THE NEXT FEW DAYS. PATIENT WAS DISCHARGED FROM DETOX UNIT IN STABLE MEDICAL CONDITION. Pertinent Past History: MMTP, Nicotine Dependence, Depression, Insomnia. - Physical Exam Results Vital Signs: Vital Signs Temperature 98.2 F 06/02/17 10:00 Pulse Rate 60 06/02/17 10:00 Respiratory Rate 18 06/02/17 10:00 Blood Pressure 90/81 06/02/17 10:00 O2 Sat by Pulse Oximetry (%) Pertinent Admission Physical Exam Findings: WITHDRAWAL SYMPTOMS. Laboratory Tests 05/29/17 05/30/17 05/30/17 20:00 07:00 07:00 WBC 5.2 D RBC 4.42 Hgb 11.8 Hct 35.8 MCV 80.9 MCH 26.6 MCHC 32.9 RDW 16.0 H Plt Count 195 D MPV 9.4 PT with INR INR Sodium 138 Potassium 4.1 Chloride 104 Carbon Dioxide 26 Anion Gap 8 BUN 11 Creatinine 0.6 L Creat Clearance w eGFR > 60 Random Glucose 81 D Calcium 7.8 L Total Bilirubin 0.8 D AST 418 H D ALT 454 H D Alkaline Phosphatase 159 H D Total Protein 6.2 L Albumin 2.9 L Urine Color Dkyellow Urine Appearance Clear Urine pH 5.0 Ur Specific [place] 1.026 Urine Protein Negative Urine Glucose (UA) Negative Urine Ketones Negative Urine Blood Negative Urine Nitrite Negative Urine Bilirubin Negative Urine Urobilinogen 4.0 e.u/dl Ur Leukocyte Esterase Trace Urine WBC (Auto) None Urine RBC (Auto) 2 Calcium Oxalate Crystal Rare Urine Bacteria Rare Urine Mucus Many RPR Titer 05/30/17 06/01/17 06/01/17 07:00 07:00 07:00 WBC RBC Hgb Hct MCV MCH MCHC RDW Plt Count MPV PT with INR 10.50 INR 0.93 Sodium 140 Potassium 4.5 Chloride 101 Carbon Dioxide 29 Anion Gap 10 BUN 9 Creatinine 0.6 L Creat Clearance w eGFR > 60 Random Glucose 109 H D Calcium 9.0 Total Bilirubin 0.4 D AST 162 H D ALT 407 H Alkaline Phosphatase 180 H Total Protein 7.1 Albumin 3.0 L Urine Color Urine Appearance Urine pH Ur Specific [place] Urine Protein Urine Glucose (UA) Urine Ketones Urine Blood Urine Nitrite Urine Bilirubin Urine Urobilinogen Ur Leukocyte Esterase Urine WBC (Auto) Urine RBC (Auto) Calcium Oxalate Crystal Urine Bacteria Urine Mucus RPR Titer Nonreactive LABS NOTED. - Treatment Hospital Course: Detox Protocol Followed, Detoxed Safely, Responded well, Discharged Condition Good, Rehab Referral Accepted Patient has Accepted a Re[facility] Referral to: [facility] ([place], [place] ). - Diagnosis (1) Cannabis dependence, uncomplicated Status: Acute (2) Cocaine dependence Status: Acute Qualifiers: Substance use status: uncomplicated Qualified Code(s): F14.20 - Cocaine dependence, uncomplicated (3) Nicotine dependence Status: Acute Qualifiers: Nicotine product type: cigarettes Substance use status: in withdrawal Qualified Code(s): F17.213 - Nicotine dependence, cigarettes, with withdrawal (4) Sedative, hypnotic or anxiolytic dependence with withdrawal, uncomplicated Status: Acute (5) Depression Status: Acute Qualifiers: Depression Type: unspecified Qualified Code(s): F32.9 - Major depressive disorder, single episode, unspecified (6) Methadone maintenance therapy patient Status: Chronic (7) Insomnia Status: Acute Qualifiers: Insomnia type: unspecified Qualified Code(s): G47.00 - Insomnia, unspecified (8) Opioid dependence on agonist therapy Status: Chronic - AMA Did Patient Leave Against Medical Advice: No
== END 2017-06-02 11:15 | disposition home or self-care (01) | DRG 773 ==
LOC: YASAS 15:34 → Y3N 16:54
PROVIDERS: ADMIT Internal Medicine; ATTEND Internal Medicine
PROC: HZ2ZZZZ Detoxification Services for Substance Abuse Treatment (ICD-10-PCS; principal; 2017-05-29)
DX: F11.20 Opioid dependence, uncomplicated (principal); F13.230 Sedative, hypnotic or anxiolytic dependence with withdrawal, uncomplicated; F14.20 Cocaine dependence, uncomplicated; F12.20 Cannabis dependence, uncomplicated; F17.213 Nicotine dependence, cigarettes, with withdrawal; F32.9 Major depressive disorder, single episode, unspecified; G47.00 Insomnia, unspecified
CPT/HCPCS: 36415; 80053; 81003; 81015; 85027; 85610; 86593; 93005; 93010

== ENCOUNTER 2017-07-11 10:59 | Inpatient (IN) | payer OTHER ==
[2017-07-11 12:59] VITALS: BMI 21.2
--- NOTE | 2017-07-11 14:41 | HP ---
CIWA Score - CIWA Score Nausea/Vomitin-Mild Nausea/No Vomiting Muscle Tremors: 4-Moderate,w/Arms Extend Anxiety: 5 Agitation: 4-Moderately Restless Paroxysmal Sweats: 1-Minimal Palms Moist Orientation: 1-Uncertain about Date Tacttile Disturbances: 0-None Auditory Disturbances: 0-None Visual Disturbances: 0-None Headache: 0-None Present CIWA-Ar Total Score: 16 Admission ROS BHS - HPI Chief Complaint: withdrawal sx benzo Allergies/Adverse Reactions: Allergies Allergy/AdvReac Type Severity Reaction Status Date / Time No Known Allergies Allergy Verified 07/11/17 14:40 History of Present Illness: 27 years old male with long history of banzo nicotine dependence has anxiety depression and methadone 300 mg po daily is admitted to detox Exam Limitations: No Limitations - Ebola screening Have you traveled outside of the country in the last 21 days: No Have you had contact with anyone from an Ebola affected area: No Have you been sick,other than usual withdrawal symptoms: No Do you have a fever: No - Review of Systems Constitutional: Changes in sleep, Unintentional Wgt. Loss, Unexplained wgt Loss EENT: reports: No Symptoms Reported Respiratory: reports: No Symptoms reported Cardiac: reports: No Symptoms Reported GI: reports: Nausea, Poor Appetite, Poor Fluid Intake, Abdominal cramping : reports: No Symptoms Reported Musculoskeletal: reports: No Symptoms Reported Integumentary: reports: No Symptoms Reported Neuro: reports: Seizure (06/20/17 benzo withdrawal related treated at [facility]), Tremors Endocrine: reports: No Symptoms Reported Hematology: reports: No Symptoms Reported Psychiatric: reports: Judgement Intact, Orientated x3, Depressed Other Systems: Reviewed and Negative Patient History - Patient Medical History Hx Anemia: No Hx Asthma: No Hx Chronic Obstructive Pulmonary Disease (COPD): No Hx Cancer: No Hx Cardiac Disorders: No Hx Congestive Heart Failure: No Hx Hypertension: No Hx Hypercholesterolemia: No Hx Pacemaker: No HX Cerebrovascular Accident: No Hx Seizures: No Hx Dementia: No Hx Diabetes: No Hx Gastrointestinal Disorders: No Hx Liver Disease: No Hx Genitourinary Disorders: No Hx Sexually Transmitted Disorders: No Hx Renal Disease (ESRD): No Hx Thyroid Disease: No Hx Human Immunodeficiency Virus (HIV): No (negative) Hx Hepatitis C: No (negative) Hx Depression: Yes Hx Suicide Attempt: No Hx Bipolar Disorder: No Hx Schizophrenia: No - Patient Surgical History Past Surgical History: No Hx Neurologic Surgery: No Hx Cataract Extraction: No Hx Cardiac Surgery: No Hx Lung Surgery: No Hx Breast Surgery: No Hx Breast Biopsy: No Hx Abdominal Surgery: No Hx Appendectomy: No Hx Cholecystectomy: No Hx Genitourinary Surgery: No Hx Orthopedic Surgery: No - PPD History Previous Implant?: Yes Implanted On Prior [facility] Admission?: Yes Date: 02/16/17 Results: 0mm PPD to be Administered?: No - Smoking Cessation Smoking history: Current every day smoker Have you smoked in the past 12 months: Yes Aproximately how many cigarettes per day: 10 Cigars Per Day: 0 Hx Chewing Tobacco Use: No Initiated information on smoking cessation: Yes 'Breaking Loose' booklet given: 07/11/17 - Substance & Tx. History Hx Alcohol Use: No Hx Substance Use: Yes Substance Use Type: Cocaine, Heroin, Opiates, Tranquilizers Hx Substance Use Treatment: Yes (05/2017 [facility] - Substances Abused Cocaine Route: Injection Frequency: Daily Amount used: 1 GRAMS DAILY Age of first use: 24 Date of Last Use: 07/10/17 Alprazolam (Xanax) Route: Oral Frequency: Daily Amount used: 6-8MG DAILY Age of first use: 26 Date of Last Use: 07/10/17 Family Disease History - Family Disease History Family Disease History: Diabetes: Father (BLOOD CLOT ), Brother, Heart Disease: Mother (), Other: Father Admission Physical Exam BHS - Vital Signs Vital Signs: Vital Signs - 24 hr 07/11/17 12:57 Temperature 96.7 F L Pulse Rate 64 Respiratory 20 Rate Blood Pressure 104/67 - Physical General Appearance: Yes: Moderate Distress, Thin, Tremorous, Irritable, Sweating , Anxious HEENTM: Yes: Hearing grossly Normal, Normocephalic, Normal Voice Respiratory: Yes: Chest Non-Tender, Lungs Clear, Normal Breath Sounds, No Respiratory Distress, No Accessory Muscle Use Neck: Yes: Supple, Trachea in good position Breast: Yes: Breasts Symetrical, No Discharge Cardiology: Yes: Regular Rhythm, S1, S2, Bradycardia Abdominal: Yes: Non Tender, Soft, Increased Bowel Sounds Genitourinary: Yes: Within Normal Limits Back: Yes: Normal Inspection Musculoskeletal: Yes: full range of Motion, Gait Steady, Back pain, Muscle Pain Extremities: Yes: Normal Range of Motion, Non-Tender, Tremors Neurological: Yes: Alert, Motor Strength 5/5, Normal Response, Depressed Affect Integumentary: Yes: Warm, Track Barrios (both inner elbows needles barrios) Lymphatic: Yes: Within Normal Limits - Diagnostic (1) Methadone maintenance therapy patient Current Visit: Yes Status: Chronic (2) Nicotine dependence Current Visit: Yes Status: Acute Qualifiers: Nicotine product type: cigarettes Substance use status: in withdrawal Qualified Code(s): F17.213 - Nicotine dependence, cigarettes, with withdrawal (3) Sedative, hypnotic or anxiolytic dependence with withdrawal, uncomplicated Current Visit: Yes Status: Acute Cleared for Admission [facility] - Detox or Rehab [facility] Level of Care: Medically Managed Detox Regimen/Protocol: Valium S Breath Alcohol Content Breath Alcohol Content: 0 Urine Drug Screen - Control Is Test Valid: Yes - Results Drug Screen Negative: No Urine Drug Screen Results: THC-Marijuana, REENA-Cocaine, PCP-Phencyclidine, BZO- Benzodiazepines, MTD-Methadone
[2017-07-11] MEDS ORDERED: LOPERAMIDE HCL 2 MG CAPSULE PO PRN (14:49)
[2017-07-11] MEDS ORDERED: P-EPHED 60MG/TRIPROLIDI 2.5MG TABLET PO PRN (14:49)
[2017-07-11] MEDS ORDERED: MAG HYDROX/AL HYDROX/SIMETH 30 ML UNIT-DOSE CUP PO PRN (14:49)
[2017-07-11] MEDS ORDERED: NICOTINE POLACRILEX 2 MG GUM BC PRN (14:49)
[2017-07-11] MEDS ORDERED: MAGNESIUM CITRATE 300 ML BOTTLE PO PRN (14:49)
[2017-07-11] MEDS ORDERED: guaiFENesin/D-METHORPHAN HB 10 ML UNIT-DOSE CUPS PO PRN (14:49)
[2017-07-11] MEDS ORDERED: MAGNESIUM HYDROX 2400MG/30ML ORAL SUSPENSION 30 ML CUP PO PRN (14:49)
[2017-07-11] MEDS ORDERED: ACETAMINOPHEN 325 MG TABLET (FP) PO PRN (14:49)
[2017-07-11] MEDS ORDERED: diazePAM 5 MG TABLET PO ONE (17:00)
[2017-07-11] MEDS: NICOTINE 14 MG/24 HOURS TOPICAL PATCH TD SCH (17:38)
[2017-07-11] MEDS ORDERED: MELATONIN 5 MG TABLETS PO PRN (22:00)
[2017-07-11] MEDS: diazePAM 5 MG TABLET PO SCH (22:30)
[2017-07-11] MEDS: THIAMINE HCL 100 MG TABLET (FP) PO SCH (22:31)
[2017-07-12] MEDS ORDERED: METHADONE HCL 40 MG DISPERSABLE TABLET ONE (05:12)
[2017-07-12] MEDS ORDERED: METHADONE HCL 10 MG TABLET ONE (05:13)
[2017-07-12] MEDS: diazePAM 5 MG TABLET PO SCH ×3 (05:35→22:48)
[2017-07-12] MEDS: METHADONE PO SCH (05:35)
--- NOTE | 2017-07-12 09:32 | CONSULT ---
[facility] Psychiatric Consult - Data Date of interview: 07/12/17 Admission source: [facility] Identifying data: Pt. is a 27 year old male, unemployed, and currently staying with family. This is one of multiple admissions for patient. Pt admitted to for cannabis, benzodiazepines, cocaine, and methadone depenence. Substance Abuse History: Smoking Cessation. Smoking history: Current every day smoker. Have you smoked in the past 12 months: Yes. Aproximately how many cigarettes per day: 10. Cigars Per Day: 0. Hx Chewing Tobacco Use: No. Initiated information on smoking cessation: Yes. 'Breaking Loose' booklet given : 07/11/17. - Substance & Tx. History. Hx Alcohol Use: No. Hx Substance Use: Yes. Substance Use Type: Cocaine, Heroin, Opiates, Tranquilizers. Hx Substance Use Treatment: Yes (05/2017 [facility]). - Substances Abused. Cocaine. Route: Injection. Frequency: Daily. Amount used: 1 GRAMS DAILY. Age of first use: 24. Date of Last Use: 07/10/17. Alprazolam (Xanax). Route: Oral. Frequency: Daily. Amount used: 6-8MG DAILY. Age of first use: 26. Date of Last Use: 07/10/17 Medical History: Denies. Psychiatric History: Pt. denies h/o psychiatric hospitalizations, outpatient care, and suicide attempt. Pt is receiving methadone maintenance of 300mg/day at the methadone program at [facility]. Pt. currently denies suicidal and homicidal ideation. Physical/Sexual Abuse/Trauma History: Denies. Mental Status Exam - Mental Status Exam Alert and Oriented to: Time, Place, Person Cognitive Function: Good Patient Appearance: Well Groomed Mood: Euthymic Affect: Mood Congruent Patient Behavior: Appropriate, Cooperative Speech Pattern: Appropriate Voice Loudness: Normal Thought Process: Goal Oriented Thought Disorder: Not Present Hallucinations: Denies Suicidal Ideation: Denies Homicidal Ideation: Denies Insight/Judgement: Poor Sleep: Poorly Appetite: Fair Muscle strength/Tone: Normal Gait/Station: Normal Psychiatric Findings - Problem List ([place] 1, 2,3) (1) Nicotine dependence Current Visit: Yes Status: Acute Qualifiers: Nicotine product type: cigarettes Substance use status: in withdrawal Qualified Code(s): F17.213 - Nicotine dependence, cigarettes, with withdrawal (2) Sedative, hypnotic or anxiolytic dependence with withdrawal, uncomplicated Current Visit: Yes Status: Acute (3) Methadone maintenance therapy patient Current Visit: Yes Status: Chronic (4) Cannabis dependence, uncomplicated Current Visit: Yes Status: Chronic (5) Cocaine dependence Current Visit: Yes Status: Chronic Qualifiers: Substance use status: uncomplicated Qualified Code(s): F14.20 - Cocaine dependence, uncomplicated (6) Insomnia Current Visit: Yes Status: Acute Qualifiers: Insomnia type: unspecified Qualified Code(s): G47.00 - Insomnia, unspecified - Initial Treatment Plan Initial Treatment Plan: Psychoeducation provided. Detoxification in progress. Ambien 5mg qhs ordered. Benefits and side effects discussed. Pt. made aware of the risk of parasomnia. Verbal consent given. Will continue to monitor.
[2017-07-12] MEDS ORDERED: METHADONE HCL 40 MG DISPERSABLE TABLET PO SCH (10:00)
[2017-07-12 10:06] LABS: HEMATOCRIT 32.6 % (35.4-49); HEMOGLOBIN 10.7 GM/dL (11.7-16.9); MCH 27.2 pg (25.7-33.7); MCHC 32.8 g/dl (32.0-35.9); MEAN CELL VOLUME 82.9 fl (80-96); MEAN PLT VOLUME 9.9 fl (7.5-11.1); PLATELET COUNT 207 K/MM3 (134-434); RBC 3.94 M/mm3 (4.00-5.60); RDW 15.8 % (11.9-15.9); WHITE BLOOD COUNT 6.3 K/mm3 (4.0-10.0)
[2017-07-12] MEDS: NICOTINE 14 MG/24 HOURS TOPICAL PATCH TD SCH (10:17)
[2017-07-12] MEDS: PRENATAL VITAMINS W/ FOLIC ACID TABLET (FP) PO SCH (10:17)
[2017-07-12] MEDS: diazePAM 5 MG TABLET PO PRN (10:17)
--- NOTE | 2017-07-12 10:26 | EKG ---
Test Reason : Blood Pressure : / mmHG Vent. Rate : 073 BPM Atrial Rate : 073 BPM P-R Int : 146 ms QRS Dur : 084 ms QT Int : 430 ms P-R-T Axes : 074 043 036 degrees QTc Int : 473 ms NORMAL SINUS RHYTHM NORMAL ECG WHEN COMPARED WITH ECG OF 29-MAY-2017 20:00, NO SIGNIFICANT CHANGE WAS FOUND Confirmed by MD SONAM, THOMAS ([id number]) on 07/12/2017 10:25:51 AM Referred By: Confirmed By:THOMAS MASTERS MD
[2017-07-12 11:12] LABS: CHLORIDE 104 mmol/L (98-107); POTASSIUM 4.5 mmol/L (3.5-5.1); SODIUM 142 mmol/L (136-145)
[2017-07-12 11:18] LABS: ALBUMIN 3.9 g/dl (3.4-5.0); ALK PHOS 93 U/L (45-117); ANION GAP 9 (8-16); BILIRUBIN,TOTAL 0.4 mg/dL (0.2-1.0); BLOOD UREA NITROGEN 16 mg/dL (7-18); CALCIUM 9.1 mg/dL (8.5-10.1); CO2 29 mmol/L (21-32); CREATININE 0.7 mg/dL (0.7-1.3); GLUCOSE,RANDOM 92 mg/dL (74-106); SGOT/AST 120 U/L (15-37); SGPT/ALT 92 U/L (12-78); TOT PROT 7.5 g/dl (6.4-8.2)
--- NOTE | 2017-07-12 11:49 | PN ---
S CIWA - CIWA Score Nausea/Vomitin-Mild Nausea/No Vomiting Muscle Tremors: 4-Moderate,w/Arms Extend Anxiety: 4-Mod. Anxious/Guarded Agitation: 4-Moderately Restless Paroxysmal Sweats: 1-Minimal Palms Moist Orientation: 0-Oriented Tacttile Disturbances: 1-Very Mild Itch/Numbness Auditory Disturbances: 0-None Visual Disturbances: 0-None Headache: 0-None Present CIWA-Ar Total Score: 15 BHS Progress Note (SOAP) Subjective: sweat tremor anxiety restlessness gi distress trouble sleep at night Objective: 07/12/17 11:49 Vital Signs Temperature 97.7 F 07/12/17 10:00 Pulse Rate 67 07/12/17 10:00 Respiratory Rate 18 07/12/17 10:00 Blood Pressure 123/63 07/12/17 10:00 O2 Sat by Pulse Oximetry (%) Laboratory Last Values WBC 6.3 K/mm3 (4.0-10.0) 07/12/17 06:00 RBC 3.94 M/mm3 (4.00-5.60) L 07/12/17 06:00 Hgb 10.7 GM/dL (11.7-16.9) L 07/12/17 06:00 Hct 32.6 % (35.4-49) L 07/12/17 06:00 MCV 82.9 fl (80-96) 07/12/17 06:00 MCH 27.2 pg (25.7-33.7) 07/12/17 06:00 MCHC 32.8 g/dl (32.0-35.9) 07/12/17 06:00 RDW 15.8 % (11.9-15.9) 07/12/17 06:00 Plt Count 207 K/MM3 (134-434) 07/12/17 06:00 MPV 9.9 fl (7.5-11.1) 07/12/17 06:00 lab noted Assessment: 07/12/17 11:49 withdrawal sx Plan: continue detox
[2017-07-12 18:57] LABS: URINE APPEARANCE CLEAR; URINE BILIRUBIN NEGATIVE (<2.0 mg/dL); URINE BLOOD NEGATIVE (NEGATIVE); URINE COLOR YELLOW; URINE GLUCOSE (UA) NEGATIVE (NEGATIVE); URINE KETONE NEGATIVE (NEGATIVE); URINE LEUK ESTERASE TRACE (NEGATIVE); URINE NITRITE NEGATIVE (NEGATIVE); URINE PROTEIN NEGATIVE (NEGATIVE); URINE UROBILINOGEN 4.0 E.U/dl mg/dL (0.2-1.0)
[2017-07-12 19:03] LABS: EPI CELLS RARE /HPF (FEW); URINE MUCUS RARE
[2017-07-12] MEDS: THIAMINE HCL 100 MG TABLET (FP) PO SCH (22:48)
[2017-07-12] MEDS: ZOLPIDEM TARTRATE 5 MG TABLET PO PRN (22:48)
[2017-07-13] MEDS ORDERED: METHADONE HCL 40 MG DISPERSABLE TABLET ONE (05:58)
[2017-07-13] MEDS ORDERED: METHADONE HCL 10 MG TABLET ONE (05:59)
[2017-07-13] MEDS: diazePAM 5 MG TABLET PO PRN ×3 (05:59→19:00)
[2017-07-13] MEDS: METHADONE PO SCH (05:59)
[2017-07-13] MEDS: PRENATAL VITAMINS W/ FOLIC ACID TABLET (FP) PO SCH (10:41)
[2017-07-13] MEDS: diazePAM 5 MG TABLET PO SCH ×2 (10:41→22:48)
[2017-07-13] MEDS: NICOTINE 14 MG/24 HOURS TOPICAL PATCH TD SCH (10:42)
--- NOTE | 2017-07-13 13:28 | PN ---
[facility] CIWA - CIWA Score Nausea/Vomitin-No Nausea/No Vomiting Muscle Tremors: 3 Anxiety: 4-Mod. Anxious/Guarded Agitation: 4-Moderately Restless Paroxysmal Sweats: 1-Minimal Palms Moist Orientation: 0-Oriented Tacttile Disturbances: 0-None Auditory Disturbances: 0-None Visual Disturbances: 0-None Headache: 0-None Present CIWA-Ar Total Score: 12 BHS Progress Note (SOAP) Subjective: sweat tremor anxiety restlessness trouble sleeping at night anxiousness Objective: 07/13/17 13:27 Vital Signs Temperature 99.2 F 07/13/17 10:25 Pulse Rate 75 07/13/17 10:25 Respiratory Rate 18 07/13/17 10:25 Blood Pressure 124/62 07/13/17 10:25 O2 Sat by Pulse Oximetry (%) Laboratory Last Values WBC 6.3 K/mm3 (4.0-10.0) 07/12/17 06:00 RBC 3.94 M/mm3 (4.00-5.60) L 07/12/17 06:00 Hgb 10.7 GM/dL (11.7-16.9) L 07/12/17 06:00 Hct 32.6 % (35.4-49) L 07/12/17 06:00 MCV 82.9 fl (80-96) 07/12/17 06:00 MCH 27.2 pg (25.7-33.7) 07/12/17 06:00 MCHC 32.8 g/dl (32.0-35.9) 07/12/17 06:00 RDW 15.8 % (11.9-15.9) 07/12/17 06:00 Plt Count 207 K/MM3 (134-434) 07/12/17 06:00 MPV 9.9 fl (7.5-11.1) 07/12/17 06:00 Sodium 142 mmol/L (136-145) 07/12/17 06:00 Potassium 4.5 mmol/L (3.5-5.1) 07/12/17 06:00 Chloride 104 mmol/L (98-107) 07/12/17 06:00 Carbon Dioxide 29 mmol/L (21-32) 07/12/17 06:00 Anion Gap 9 (8-16) 07/12/17 06:00 BUN 16 mg/dL (7-18) D 07/12/17 06:00 Creatinine 0.7 mg/dL (0.7-1.3) 07/12/17 06:00 Creat Clearance w eGFR > 60 (>60) 07/12/17 06:00 Random Glucose 92 mg/dL (74-106) 07/12/17 06:00 Calcium 9.1 mg/dL (8.5-10.1) 07/12/17 06:00 Total Bilirubin 0.4 mg/dL (0.2-1.0) 07/12/17 06:00 AST 120 U/L (15-37) H D 07/12/17 06:00 ALT 92 U/L (12-78) H D 07/12/17 06:00 Alkaline Phosphatase 93 U/L (45-117) D 07/12/17 06:00 Total Protein 7.5 g/dl (6.4-8.2) 07/12/17 06:00 Albumin 3.9 g/dl (3.4-5.0) D 07/12/17 06:00 Urine Color Yellow 07/12/17 13:40 Urine Appearance Clear 07/12/17 13:40 Urine pH 6.0 (5.0-8.0) 07/12/17 13:40 Ur Specific [place] 1.023 (1.001-1.035) 07/12/17 13:40 Urine Protein Negative (NEGATIVE) 07/12/17 13:40 Urine Glucose (UA) Negative (NEGATIVE) 07/12/17 13:40 Urine Ketones Negative (NEGATIVE) 07/12/17 13:40 Urine Blood Negative (NEGATIVE) 07/12/17 13:40 Urine Nitrite Negative (NEGATIVE) 07/12/17 13:40 Urine Bilirubin Negative (<2.0 mg/dL) 07/12/17 13:40 Urine Urobilinogen 4.0 e.u/dl mg/dL (0.2-1.0) 07/12/17 13:40 Ur Leukocyte Esterase Trace (NEGATIVE) 07/12/17 13:40 Urine WBC (Auto) 1 /hpf (3-5) 07/12/17 13:40 Urine RBC (Auto) 1 /hpf (0-3) 07/12/17 13:40 Ur Epithelial Cells Rare /HPF (FEW) 07/12/17 13:40 Urine Mucus Rare 07/12/17 13:40 RPR Titer Nonreactive (NONREACTIVE) 07/12/17 06:00 lab noted Assessment: 07/13/17 13:27 withdrawal sx Plan: continue detox
[2017-07-13] MEDS: IBUPROFEN 400 MG TABLET (FP) PO PRN (22:48)
[2017-07-13] MEDS: ZOLPIDEM TARTRATE 5 MG TABLET PO PRN (22:48)
[2017-07-13] MEDS: THIAMINE HCL 100 MG TABLET (FP) PO SCH (22:49)
[2017-07-14] MEDS ORDERED: METHADONE HCL 10 MG TABLET ONE (05:16)
[2017-07-14] MEDS ORDERED: METHADONE HCL 40 MG DISPERSABLE TABLET ONE (05:16)
[2017-07-14] MEDS: METHADONE PO SCH (05:51)
[2017-07-14] MEDS: diazePAM 5 MG TABLET PO PRN ×2 (05:52→14:16)
[2017-07-14] MEDS: PRENATAL VITAMINS W/ FOLIC ACID TABLET (FP) PO SCH (10:19)
[2017-07-14] MEDS: NICOTINE 14 MG/24 HOURS TOPICAL PATCH TD SCH (10:19)
[2017-07-14] MEDS: diazePAM 5 MG TABLET PO SCH ×2 (10:19→22:28)
[2017-07-14] MEDS: IBUPROFEN 400 MG TABLET (FP) PO PRN (10:21)
--- NOTE | 2017-07-14 10:57 | PN ---
BHS Progress Note (SOAP) Subjective: feeling better no tremor less sweat tolerate food and fluid well well rested Objective: 07/14/17 10:56 Vital Signs Temperature 98.2 F 07/14/17 10:10 Pulse Rate 72 07/14/17 10:10 Respiratory Rate 18 07/14/17 10:10 Blood Pressure 117/52 07/14/17 10:10 O2 Sat by Pulse Oximetry (%) Laboratory Last Values WBC 6.3 K/mm3 (4.0-10.0) 07/12/17 06:00 RBC 3.94 M/mm3 (4.00-5.60) L 07/12/17 06:00 Hgb 10.7 GM/dL (11.7-16.9) L 07/12/17 06:00 Hct 32.6 % (35.4-49) L 07/12/17 06:00 MCV 82.9 fl (80-96) 07/12/17 06:00 MCH 27.2 pg (25.7-33.7) 07/12/17 06:00 MCHC 32.8 g/dl (32.0-35.9) 07/12/17 06:00 RDW 15.8 % (11.9-15.9) 07/12/17 06:00 Plt Count 207 K/MM3 (134-434) 07/12/17 06:00 MPV 9.9 fl (7.5-11.1) 07/12/17 06:00 Sodium 142 mmol/L (136-145) 07/12/17 06:00 Potassium 4.5 mmol/L (3.5-5.1) 07/12/17 06:00 Chloride 104 mmol/L (98-107) 07/12/17 06:00 Carbon Dioxide 29 mmol/L (21-32) 07/12/17 06:00 Anion Gap 9 (8-16) 07/12/17 06:00 BUN 16 mg/dL (7-18) D 07/12/17 06:00 Creatinine 0.7 mg/dL (0.7-1.3) 07/12/17 06:00 Creat Clearance w eGFR > 60 (>60) 07/12/17 06:00 Random Glucose 92 mg/dL (74-106) 07/12/17 06:00 Calcium 9.1 mg/dL (8.5-10.1) 07/12/17 06:00 Total Bilirubin 0.4 mg/dL (0.2-1.0) 07/12/17 06:00 AST 120 U/L (15-37) H D 07/12/17 06:00 ALT 92 U/L (12-78) H D 07/12/17 06:00 Alkaline Phosphatase 93 U/L (45-117) D 07/12/17 06:00 Total Protein 7.5 g/dl (6.4-8.2) 07/12/17 06:00 Albumin 3.9 g/dl (3.4-5.0) D 07/12/17 06:00 Urine Color Yellow 07/12/17 13:40 Urine Appearance Clear 07/12/17 13:40 Urine pH 6.0 (5.0-8.0) 07/12/17 13:40 Ur Specific [place] 1.023 (1.001-1.035) 07/12/17 13:40 Urine Protein Negative (NEGATIVE) 07/12/17 13:40 Urine Glucose (UA) Negative (NEGATIVE) 07/12/17 13:40 Urine Ketones Negative (NEGATIVE) 07/12/17 13:40 Urine Blood Negative (NEGATIVE) 07/12/17 13:40 Urine Nitrite Negative (NEGATIVE) 07/12/17 13:40 Urine Bilirubin Negative (<2.0 mg/dL) 07/12/17 13:40 Urine Urobilinogen 4.0 e.u/dl mg/dL (0.2-1.0) 07/12/17 13:40 Ur Leukocyte Esterase Trace (NEGATIVE) 07/12/17 13:40 Urine WBC (Auto) 1 /hpf (3-5) 07/12/17 13:40 Urine RBC (Auto) 1 /hpf (0-3) 07/12/17 13:40 Ur Epithelial Cells Rare /HPF (FEW) 07/12/17 13:40 Urine Mucus Rare 07/12/17 13:40 RPR Titer Nonreactive (NONREACTIVE) 07/12/17 06:00 lab noted Assessment: 07/14/17 10:57 mild withdrawal sx Plan: medically supervised detox
[2017-07-14] MEDS: MENTHOL/PHENOL 1 EACH UD MM PRN ×2 (17:14→22:31)
--- NOTE | 2017-07-14 19:09 | PN ---
[facility] Progress Note Note: Patient febrile since this AM. Patient c/o of sore throat, cough, generalize body aches and chills. Denies SOB, chest pain or vertigo. Vital Signs Temperature 101.1 F H 07/14/17 18:08 Pulse Rate 97 H 07/14/17 18:08 Respiratory Rate 18 07/14/17 18:08 Blood Pressure 121/71 07/14/17 18:08 O2 Sat by Pulse Oximetry (%) Laboratory Last Values WBC 6.3 K/mm3 (4.0-10.0) 07/12/17 06:00 RBC 3.94 M/mm3 (4.00-5.60) L 07/12/17 06:00 Hgb 10.7 GM/dL (11.7-16.9) L 07/12/17 06:00 Hct 32.6 % (35.4-49) L 07/12/17 06:00 MCV 82.9 fl (80-96) 07/12/17 06:00 MCH 27.2 pg (25.7-33.7) 07/12/17 06:00 MCHC 32.8 g/dl (32.0-35.9) 07/12/17 06:00 RDW 15.8 % (11.9-15.9) 07/12/17 06:00 Plt Count 207 K/MM3 (134-434) 07/12/17 06:00 MPV 9.9 fl (7.5-11.1) 07/12/17 06:00 Sodium 142 mmol/L (136-145) 07/12/17 06:00 Potassium 4.5 mmol/L (3.5-5.1) 07/12/17 06:00 Chloride 104 mmol/L (98-107) 07/12/17 06:00 Carbon Dioxide 29 mmol/L (21-32) 07/12/17 06:00 Anion Gap 9 (8-16) 07/12/17 06:00 BUN 16 mg/dL (7-18) D 07/12/17 06:00 Creatinine 0.7 mg/dL (0.7-1.3) 07/12/17 06:00 Creat Clearance w eGFR > 60 (>60) 07/12/17 06:00 Random Glucose 92 mg/dL (74-106) 07/12/17 06:00 Calcium 9.1 mg/dL (8.5-10.1) 07/12/17 06:00 Total Bilirubin 0.4 mg/dL (0.2-1.0) 07/12/17 06:00 AST 120 U/L (15-37) H D 07/12/17 06:00 ALT 92 U/L (12-78) H D 07/12/17 06:00 Alkaline Phosphatase 93 U/L (45-117) D 07/12/17 06:00 Total Protein 7.5 g/dl (6.4-8.2) 07/12/17 06:00 Albumin 3.9 g/dl (3.4-5.0) D 07/12/17 06:00 Urine Color Yellow 07/12/17 13:40 Urine Appearance Clear 07/12/17 13:40 Urine pH 6.0 (5.0-8.0) 07/12/17 13:40 Ur Specific [place] 1.023 (1.001-1.035) 07/12/17 13:40 Urine Protein Negative (NEGATIVE) 07/12/17 13:40 Urine Glucose (UA) Negative (NEGATIVE) 07/12/17 13:40 Urine Ketones Negative (NEGATIVE) 07/12/17 13:40 Urine Blood Negative (NEGATIVE) 07/12/17 13:40 Urine Nitrite Negative (NEGATIVE) 07/12/17 13:40 Urine Bilirubin Negative (<2.0 mg/dL) 07/12/17 13:40 Urine Urobilinogen 4.0 e.u/dl mg/dL (0.2-1.0) 07/12/17 13:40 Ur Leukocyte Esterase Trace (NEGATIVE) 07/12/17 13:40 Urine WBC (Auto) 1 /hpf (3-5) 07/12/17 13:40 Urine RBC (Auto) 1 /hpf (0-3) 07/12/17 13:40 Ur Epithelial Cells Rare /HPF (FEW) 07/12/17 13:40 Urine Mucus Rare 07/12/17 13:40 RPR Titer Nonreactive (NONREACTIVE) 07/12/17 06:00 Labs reviewed A/P Patient AOx3, diaphoretic + mild bilateral cervical adenopathy, pharyngeal erythema Lungs clear throughout, no adventitious breath sounds, +productive cough Normal Heart Rate and Rhythm Skin clean and intact , warm to touch Sore throat / URI Plan: Start erythromycin x 500 mg x 1 day, 250 mg x 2 days Peridex rinse PRN BID Ibuprofen 400 PRN increase fluids Repeat U/A AST elevate, d/c tylenol Continue to monitor
[2017-07-14] MEDS ORDERED: AZITHROMYCIN 250 MG TABLET PO ONE (19:15)
[2017-07-14] MEDS: CHLORHEXIDINE GLUCONATE 0.12% 15ML CUP MM SCH (22:28)
[2017-07-14] MEDS: THIAMINE HCL 100 MG TABLET (FP) PO SCH (22:28)
[2017-07-14] MEDS: ZOLPIDEM TARTRATE 5 MG TABLET PO PRN (22:31)
[2017-07-15] MEDS ORDERED: METHADONE HCL 10 MG TABLET ONE (04:07)
[2017-07-15] MEDS ORDERED: METHADONE HCL 40 MG DISPERSABLE TABLET ONE (04:07)
[2017-07-15] MEDS: IBUPROFEN 400 MG TABLET (FP) PO PRN (05:15)
[2017-07-15] MEDS: METHADONE PO SCH (05:16)
--- NOTE | 2017-07-15 08:38 | DS ---
[facility] Detox Discharge Summary Admission Date: 07/11/17 Discharge Date: 07/15/17 - History Present History: Cannabis Dependence, Sedative Dependence, MMTP Additional Comments: sloan developed uri oduring stay started on zitromax Pertinent Past History: anxiety, depression and insomnia. nicotine depndence, dehydration - Physical Exam Results Vital Signs: Vital Signs Temperature 99.1 F 07/15/17 07:06 Pulse Rate 100 H 07/15/17 06:00 Respiratory Rate 16 07/15/17 06:00 Blood Pressure 124/62 07/15/17 06:00 O2 Sat by Pulse Oximetry (%) Laboratory Tests 07/12/17 07/12/17 07/12/17 06:00 06:00 06:00 WBC 6.3 RBC 3.94 L Hgb 10.7 L Hct 32.6 L MCV 82.9 MCH 27.2 MCHC 32.8 RDW 15.8 Plt Count 207 MPV 9.9 Sodium 142 Potassium 4.5 Chloride 104 Carbon Dioxide 29 Anion Gap 9 BUN 16 D Creatinine 0.7 Creat Clearance w eGFR > 60 Random Glucose 92 Calcium 9.1 Total Bilirubin 0.4 AST 120 H D ALT 92 H D Alkaline Phosphatase 93 D Total Protein 7.5 Albumin 3.9 D Urine Color Urine Appearance Urine pH Ur Specific [place] Urine Protein Urine Glucose (UA) Urine Ketones Urine Blood Urine Nitrite Urine Bilirubin Urine Urobilinogen Ur Leukocyte Esterase Urine WBC (Auto) Urine RBC (Auto) Ur Epithelial Cells Urine Mucus RPR Titer Nonreactive 07/12/17 13:40 WBC RBC Hgb Hct MCV MCH MCHC RDW Plt Count MPV Sodium Potassium Chloride Carbon Dioxide Anion Gap BUN Creatinine Creat Clearance w eGFR Random Glucose Calcium Total Bilirubin AST ALT Alkaline Phosphatase Total Protein Albumin Urine Color Yellow Urine Appearance Clear Urine pH 6.0 Ur Specific [place] 1.023 Urine Protein Negative Urine Glucose (UA) Negative Urine Ketones Negative Urine Blood Negative Urine Nitrite Negative Urine Bilirubin Negative Urine Urobilinogen 4.0 e.u/dl Ur Leukocyte Esterase Trace Urine WBC (Auto) 1 Urine RBC (Auto) 1 Ur Epithelial Cells Rare Urine Mucus Rare RPR Titer anemia Pertinent Admission Physical Exam Findings: withdrawal sx - Medication Discharge Medications: Ambulatory Orders Methadone [Dolophine -] 300 mg PO DAILY 07/11/17 Azithromycin [Zithromax 250mg Tablets -] 250 mg PO DAILY #1 tablet MDD 1 - Diagnosis (1) Insomnia Current Visit: Yes Status: Acute Qualifiers: Insomnia type: unspecified Qualified Code(s): G47.00 - Insomnia, unspecified (2) Nicotine dependence Current Visit: Yes Status: Acute Qualifiers: Nicotine product type: cigarettes Substance use status: in withdrawal Qualified Code(s): F17.213 - Nicotine dependence, cigarettes, with withdrawal (3) Sedative, hypnotic or anxiolytic dependence with withdrawal, uncomplicated Current Visit: Yes Status: Acute (4) Cannabis dependence, uncomplicated Current Visit: Yes Status: Chronic (5) Cocaine dependence Current Visit: Yes Status: Chronic Qualifiers: Substance use status: uncomplicated Qualified Code(s): F14.20 - Cocaine dependence, uncomplicated (6) Dehydration Current Visit: No Status: Acute (7) Depression Current Visit: No Status: Acute Qualifiers: Depression Type: unspecified Qualified Code(s): F32.9 - Major depressive disorder, single episode, unspecified (8) Hepatitis Current Visit: No Status: Acute (9) Opioid dependence on agonist therapy Current Visit: No Status: Chronic (10) Anemia Current Visit: Yes Status: Acute (11) URI (upper respiratory infection) Current Visit: Yes Status: Acute - AMA Did Patient Leave Against Medical Advice: No
[2017-07-15] MEDS ORDERED: AZITHROMYCIN 250 MG TABLET PO SCH (10:00)
[2017-07-15] MEDS ORDERED: PANTOPRAZOLE 40 MG TABLET (FP) PO SCH (10:00)
[2017-07-15] MEDS ORDERED: NAPROXEN 500 MG TABLET (FP) PO SCH (10:00)
[2017-07-15] MEDS ORDERED: diazePAM 5 MG TABLET PO SCH (10:00)
[2017-07-15] MEDS: CHLORHEXIDINE GLUCONATE 0.12% 15ML CUP MM SCH (10:44)
[2017-07-15] MEDS: PRENATAL VITAMINS W/ FOLIC ACID TABLET (FP) PO SCH (10:44)
[2017-07-15] MEDS: NICOTINE 14 MG/24 HOURS TOPICAL PATCH TD SCH (10:48)
[2017-07-15] MEDS: MENTHOL/PHENOL 1 EACH UD MM PRN (13:16)
[2017-07-15 14:19] VITALS: BP 122/65; PULSE 78; TEMP 98.6
[2017-07-15 21:30] LABS: URINE APPEARANCE SLCLOUDY; URINE BILIRUBIN NEGATIVE (<2.0 mg/dL); URINE BLOOD NEGATIVE (NEGATIVE); URINE COLOR YELLOW; URINE GLUCOSE (UA) NEGATIVE (NEGATIVE); URINE KETONE NEGATIVE (NEGATIVE); URINE LEUK ESTERASE TRACE (NEGATIVE); URINE NITRITE NEGATIVE (NEGATIVE); URINE PROTEIN NEGATIVE (NEGATIVE); URINE UROBILINOGEN NEGATIVE mg/dL (0.2-1.0)
[2017-07-15 21:46] LABS: CALCIUM OXALATE CRYSTALS RARE /hpf (NONE SEEN); EPI CELLS RARE /HPF (FEW); GRANULAR CASTS 33 /lpf; URINE HYALINE CAST 15 /lpf; URINE MUCUS MODERATE
[2017-07-15] MEDS ORDERED: DOCUSATE SODIUM 100 MG CAPSULE (FP) PO SCH (22:00)
== END 2017-07-15 14:15 | disposition other institution (70) | DRG 773 ==
LOC: YASAS 10:59 → Y6N 16:33
PROVIDERS: ADMIT Internal Medicine; ATTEND Internal Medicine
PROC: HZ2ZZZZ Detoxification Services for Substance Abuse Treatment (ICD-10-PCS; principal; 2017-07-11)
DX: F11.20 Opioid dependence, uncomplicated (principal); F13.230 Sedative, hypnotic or anxiolytic dependence with withdrawal, uncomplicated; F12.20 Cannabis dependence, uncomplicated; F17.210 Nicotine dependence, cigarettes, uncomplicated; F41.9 Anxiety disorder, unspecified; F32.9 Major depressive disorder, single episode, unspecified; G47.00 Insomnia, unspecified; E86.0 Dehydration; D64.9 Anemia, unspecified; J06.9 Acute upper respiratory infection, unspecified
CPT/HCPCS: 36415; 80053; 81003; 81015; 85027; 86593; 93005; 93010

== ENCOUNTER 2017-07-15 14:32 | Inpatient (IN) | payer OTHER ==
[2017-07-15] MEDS ORDERED: LOPERAMIDE HCL 2 MG CAPSULE PO PRN (15:58)
[2017-07-15] MEDS ORDERED: MAGNESIUM CITRATE 300 ML BOTTLE PO PRN (15:58)
[2017-07-15] MEDS ORDERED: NICOTINE POLACRILEX 2 MG GUM BUC PRN (15:58)
[2017-07-15] MEDS ORDERED: MAGNESIUM HYDROX 2400MG/30ML ORAL SUSPENSION 30 ML CUP PO PRN (15:58)
[2017-07-15] MEDS ORDERED: MAG HYDROX/AL HYDROX/SIMETH 30 ML UNIT-DOSE CUP PO PRN (15:58)
[2017-07-15] MEDS: MENTHOL/PHENOL 1 EACH UD MM PRN ×2 (16:42→21:26)
[2017-07-15] MEDS: THIAMINE HCL 100 MG TABLET (FP) PO SCH (21:24)
[2017-07-15] MEDS: MELATONIN 5 MG TABLETS PO PRN (21:25)
[2017-07-15] MEDS: hydrOXYzine PAMOATE 50 MG CAPSULE (FP) PO PRN (21:26)
[2017-07-16] MEDS ORDERED: METHADONE HCL 40 MG DISPERSABLE TABLET ONE (05:54)
[2017-07-16] MEDS ORDERED: METHADONE HCL 10 MG TABLET ONE (05:54)
[2017-07-16] MEDS ORDERED: METHADONE HCL 40 MG DISPERSABLE TABLET PO SCH (06:00)
[2017-07-16] MEDS: METHADONE PO SCH (06:39)
[2017-07-16] MEDS: PRENATAL VITAMINS W/ FOLIC ACID TABLET (FP) PO SCH (09:52)
[2017-07-16] MEDS: NICOTINE 14 MG/24 HOURS TOPICAL PATCH TD SCH (09:53)
[2017-07-16] MEDS: MENTHOL/PHENOL 1 EACH UD MM PRN (09:55)
[2017-07-16] MEDS ORDERED: AZITHROMYCIN 250 MG TABLET PO SCH (10:00)
[2017-07-16] MEDS: ACETAMINOPHEN 325 MG TABLET (FP) PO PRN ×2 (14:07→21:25)
[2017-07-16] MEDS: P-EPHED 60MG/TRIPROLIDI 2.5MG TABLET PO PRN ×2 (14:07→21:25)
[2017-07-16] MEDS: hydrOXYzine PAMOATE 50 MG CAPSULE (FP) PO PRN (21:25)
[2017-07-16] MEDS: THIAMINE HCL 100 MG TABLET (FP) PO SCH (21:25)
[2017-07-17] MEDS ORDERED: METHADONE HCL 40 MG DISPERSABLE TABLET ONE (03:17)
[2017-07-17] MEDS ORDERED: METHADONE HCL 10 MG TABLET ONE (03:17)
[2017-07-17] MEDS: METHADONE PO SCH (06:38)
[2017-07-17] MEDS: PRENATAL VITAMINS W/ FOLIC ACID TABLET (FP) PO SCH (09:46)
[2017-07-17] MEDS: NICOTINE 14 MG/24 HOURS TOPICAL PATCH TD SCH (09:47)
[2017-07-17] MEDS: THIAMINE HCL 100 MG TABLET (FP) PO SCH (21:12)
[2017-07-17] MEDS: ACETAMINOPHEN 325 MG TABLET (FP) PO PRN (21:13)
[2017-07-17] MEDS: hydrOXYzine PAMOATE 50 MG CAPSULE (FP) PO PRN (21:13)
[2017-07-17] MEDS: P-EPHED 60MG/TRIPROLIDI 2.5MG TABLET PO PRN (21:13)
[2017-07-18] MEDS ORDERED: METHADONE HCL 10 MG TABLET ONE (03:15)
[2017-07-18] MEDS ORDERED: METHADONE HCL 40 MG DISPERSABLE TABLET ONE (03:16)
[2017-07-18] MEDS: METHADONE PO SCH (06:37)
[2017-07-18] MEDS: PRENATAL VITAMINS W/ FOLIC ACID TABLET (FP) PO SCH (09:50)
[2017-07-18] MEDS: NICOTINE 14 MG/24 HOURS TOPICAL PATCH TD SCH (09:51)
--- NOTE | 2017-07-18 14:53 | HP ---
Psychiatrist Admission - Data Date of interview: 07/18/17 Admission source: 3N Identifying data: This is the first 5n inpatient rehabilitation admission for this 27 year old [place]-born male who is father of two, he is domiciled (lives with relatives),unemployed and supported on food stamps. Medical History: Reports a god physical health, smokes cigarettes 1/2 PPD, on MMTP 300 mg daily. Psychiatric History: Patient denies history of psychiatric treatment. Denies history of suicidal attempts. Physical/Sexual Abuse/Trauma History: Patient denies history of abuse. Vital Signs: Vital Signs - 24 hr 07/18/17 07/18/17 07/18/17 00:30 03:30 06:45 Temperature 99.0 F Pulse Rate 71 Respiratory 16 16 16 Rate Blood Pressure 135/75 Allergies/Adverse Reactions: Allergies Allergy/AdvReac Type Severity Reaction Status Date / Time No Known Allergies Allergy Verified 07/11/17 14:40 Date of last physical exam: 07/11/17 Concur with the findings of this exam: Yes - Substance Abuse/Tx History Hx Alcohol Use: No Hx Substance Use: Yes Substance Use Type: Cocaine (injecting daily $20-30 daily ), Marijuana (daily $ 10), Tranquilizers (xanax 4-8 mg daily ) Hx Substance Use Treatment: Yes (multiple detox.) Mental Status Exam - Mental Status Exam Alert and Oriented to: Time, Place, Person Cognitive Function: Grossly Intact Patient Appearance: Well Groomed Mood: Sad Affect: Appropriate, Mood Congruent Patient Behavior: Appropriate, Cooperative Speech Pattern: Clear, Appropriate Voice Loudness: Normal Thought Process: Intact, Goal Oriented Thought Disorder: Not Present Hallucinations: Denies Suicidal Ideation: Denies Homicidal Ideation: Denies Insight/Judgement: Fair Sleep: Fair Appetite: Fair Muscle strength/Tone: Normal Gait/Station: Normal Psychiatric Findings - Problem List ([place] 1, 2,3) (1) Cannabis dependence Current Visit: Yes Status: Acute (2) Nicotine dependence Current Visit: No Status: Acute Qualifiers: Nicotine product type: cigarettes Substance use status: in withdrawal Qualified Code(s): F17.213 - Nicotine dependence, cigarettes, with withdrawal (3) Cocaine dependence Current Visit: No Status: Chronic Qualifiers: Substance use status: uncomplicated Qualified Code(s): F14.20 - Cocaine dependence, uncomplicated (4) Opioid dependence on agonist therapy Current Visit: No Status: Chronic - Initial Treatment Plan Initial Treatment Plan: Will monitor progress as needed.
[2017-07-18] MEDS: THIAMINE HCL 100 MG TABLET (FP) PO SCH (21:18)
[2017-07-18] MEDS: hydrOXYzine PAMOATE 50 MG CAPSULE (FP) PO PRN (21:18)
[2017-07-18] MEDS: MELATONIN 5 MG TABLETS PO PRN (21:19)
[2017-07-18] MEDS: ACETAMINOPHEN 325 MG TABLET (FP) PO PRN (21:19)
[2017-07-19] MEDS ORDERED: METHADONE HCL 10 MG TABLET ONE (03:17)
[2017-07-19] MEDS ORDERED: METHADONE HCL 40 MG DISPERSABLE TABLET ONE (03:17)
[2017-07-19] MEDS: METHADONE PO SCH (06:19)
[2017-07-19] MEDS: PRENATAL VITAMINS W/ FOLIC ACID TABLET (FP) PO SCH (09:49)
[2017-07-19] MEDS: NICOTINE 14 MG/24 HOURS TOPICAL PATCH TD SCH (09:50)
[2017-07-19] MEDS: guaiFENesin/D-METHORPHAN HB 10 ML UNIT-DOSE CUPS PO PRN ×2 (09:51→21:12)
[2017-07-19] MEDS: THIAMINE HCL 100 MG TABLET (FP) PO SCH (21:12)
[2017-07-19] MEDS: ACETAMINOPHEN 325 MG TABLET (FP) PO PRN (21:12)
[2017-07-19] MEDS: MELATONIN 5 MG TABLETS PO PRN (21:12)
[2017-07-20] MEDS ORDERED: METHADONE HCL 40 MG DISPERSABLE TABLET ONE (05:33)
[2017-07-20] MEDS ORDERED: METHADONE HCL 10 MG TABLET ONE (05:33)
[2017-07-20] MEDS: METHADONE PO SCH (06:21)
[2017-07-20] MEDS: PRENATAL VITAMINS W/ FOLIC ACID TABLET (FP) PO SCH (09:31)
[2017-07-20] MEDS: NICOTINE 14 MG/24 HOURS TOPICAL PATCH TD SCH (09:31)
[2017-07-20] MEDS: THIAMINE HCL 100 MG TABLET (FP) PO SCH (21:16)
[2017-07-20] MEDS: MELATONIN 5 MG TABLETS PO PRN (21:16)
[2017-07-20] MEDS: ACETAMINOPHEN 325 MG TABLET (FP) PO PRN (21:17)
[2017-07-20] MEDS: guaiFENesin/D-METHORPHAN HB 10 ML UNIT-DOSE CUPS PO PRN (21:18)
[2017-07-21] MEDS ORDERED: METHADONE HCL 10 MG TABLET ONE (04:54)
[2017-07-21] MEDS ORDERED: METHADONE HCL 40 MG DISPERSABLE TABLET ONE (04:54)
[2017-07-21] MEDS: METHADONE PO SCH (06:13)
[2017-07-21] MEDS: PRENATAL VITAMINS W/ FOLIC ACID TABLET (FP) PO SCH (09:49)
[2017-07-21] MEDS: guaiFENesin/D-METHORPHAN HB 10 ML UNIT-DOSE CUPS PO PRN ×2 (09:50→21:29)
[2017-07-21] MEDS: NICOTINE 14 MG/24 HOURS TOPICAL PATCH TD SCH (09:51)
[2017-07-21] MEDS: MENTHOL/PHENOL 1 EACH UD MM PRN (09:52)
[2017-07-21] MEDS: IBUPROFEN 400 MG TABLET (FP) PO PRN (21:28)
[2017-07-21] MEDS: hydrOXYzine PAMOATE 50 MG CAPSULE (FP) PO PRN (21:29)
[2017-07-21] MEDS: THIAMINE HCL 100 MG TABLET (FP) PO SCH (21:29)
[2017-07-22] MEDS ORDERED: METHADONE HCL 40 MG DISPERSABLE TABLET ONE (03:23)
[2017-07-22] MEDS ORDERED: METHADONE HCL 10 MG TABLET ONE (03:23)
[2017-07-22] MEDS: METHADONE PO SCH (06:28)
[2017-07-22] MEDS: PRENATAL VITAMINS W/ FOLIC ACID TABLET (FP) PO SCH (09:42)
[2017-07-22] MEDS: NICOTINE 14 MG/24 HOURS TOPICAL PATCH TD SCH (09:42)
[2017-07-22] MEDS: THIAMINE HCL 100 MG TABLET (FP) PO SCH (21:14)
[2017-07-22] MEDS: hydrOXYzine PAMOATE 50 MG CAPSULE (FP) PO PRN (21:14)
[2017-07-22] MEDS: IBUPROFEN 400 MG TABLET (FP) PO PRN (21:14)
[2017-07-23] MEDS ORDERED: METHADONE HCL 40 MG DISPERSABLE TABLET ONE (05:23)
[2017-07-23] MEDS ORDERED: METHADONE HCL 10 MG TABLET ONE (05:23)
[2017-07-23] MEDS: METHADONE PO SCH (06:30)
[2017-07-23] MEDS: PRENATAL VITAMINS W/ FOLIC ACID TABLET (FP) PO SCH (09:46)
[2017-07-23] MEDS: NICOTINE 14 MG/24 HOURS TOPICAL PATCH TD SCH (09:46)
[2017-07-23] MEDS: THIAMINE HCL 100 MG TABLET (FP) PO SCH (21:14)
[2017-07-23] MEDS: MELATONIN 5 MG TABLETS PO PRN (21:14)
[2017-07-23] MEDS: IBUPROFEN 400 MG TABLET (FP) PO PRN (21:16)
[2017-07-24] MEDS ORDERED: METHADONE HCL 40 MG DISPERSABLE TABLET ONE (03:04)
[2017-07-24] MEDS ORDERED: METHADONE HCL 10 MG TABLET ONE (03:04)
[2017-07-24] MEDS: METHADONE PO SCH (06:29)
[2017-07-24] MEDS: NICOTINE 14 MG/24 HOURS TOPICAL PATCH TD SCH (10:01)
[2017-07-24] MEDS: PRENATAL VITAMINS W/ FOLIC ACID TABLET (FP) PO SCH (10:01)
[2017-07-24] MEDS: THIAMINE HCL 100 MG TABLET (FP) PO SCH (21:15)
[2017-07-24] MEDS: MELATONIN 5 MG TABLETS PO PRN (21:15)
[2017-07-24] MEDS: IBUPROFEN 400 MG TABLET (FP) PO PRN (21:16)
[2017-07-25] MEDS ORDERED: METHADONE HCL 10 MG TABLET ONE (02:57)
[2017-07-25] MEDS ORDERED: METHADONE HCL 40 MG DISPERSABLE TABLET ONE (02:58)
[2017-07-25] MEDS: METHADONE PO SCH (06:21)
[2017-07-25] MEDS: NICOTINE 14 MG/24 HOURS TOPICAL PATCH TD SCH (09:53)
[2017-07-25] MEDS: PRENATAL VITAMINS W/ FOLIC ACID TABLET (FP) PO SCH (09:53)
--- NOTE | 2017-07-25 12:39 | PN ---
[facility] Progress Note Note: Pt c/o cough with green, blood tinged sputum x 2 days. Vital Signs Temperature 98.5 F 07/25/17 06:54 Pulse Rate 63 07/25/17 06:54 Respiratory Rate 18 07/25/17 06:54 Blood Pressure 131/70 07/25/17 06:54 O2 Sat by Pulse Oximetry (%) Subj: + productive cough. Denies CP, SOB and Dizziness. Obj: Skin: warm and dry. Afebrile. Car: S1s2, RRR. Resp: CTA BL Ext: no edema A/P: cough/hemoptysis Pt treated during detox with antibiotics and medical condition improved at that time will check CXR as pt has history of nicotine use continue Robitussin as per prn order continue to monitor
[2017-07-25] MEDS: MELATONIN 5 MG TABLETS PO PRN (21:20)
[2017-07-25] MEDS: THIAMINE HCL 100 MG TABLET (FP) PO SCH (21:20)
[2017-07-25] MEDS: guaiFENesin/D-METHORPHAN HB 10 ML UNIT-DOSE CUPS PO PRN (21:21)
[2017-07-26] MEDS ORDERED: METHADONE HCL 10 MG TABLET ONE (04:44)
[2017-07-26] MEDS ORDERED: METHADONE HCL 40 MG DISPERSABLE TABLET ONE (04:44)
[2017-07-26] MEDS: METHADONE PO SCH (06:23)
[2017-07-26] MEDS: PRENATAL VITAMINS W/ FOLIC ACID TABLET (FP) PO SCH (09:51)
[2017-07-26] MEDS: NICOTINE 14 MG/24 HOURS TOPICAL PATCH TD SCH (09:52)
[2017-07-26] MEDS: guaiFENesin/D-METHORPHAN HB 10 ML UNIT-DOSE CUPS PO PRN ×2 (09:53→21:12)
[2017-07-26] MEDS: MELATONIN 5 MG TABLETS PO PRN (21:11)
[2017-07-26] MEDS: THIAMINE HCL 100 MG TABLET (FP) PO SCH (21:11)
[2017-07-27] MEDS ORDERED: METHADONE HCL 10 MG TABLET ONE (05:47)
[2017-07-27] MEDS ORDERED: METHADONE HCL 40 MG DISPERSABLE TABLET ONE (05:47)
[2017-07-27] MEDS: METHADONE PO SCH (06:26)
[2017-07-27] MEDS: NICOTINE 14 MG/24 HOURS TOPICAL PATCH TD SCH (10:04)
[2017-07-27] MEDS: PRENATAL VITAMINS W/ FOLIC ACID TABLET (FP) PO SCH (10:04)
[2017-07-27] MEDS: guaiFENesin/D-METHORPHAN HB 10 ML UNIT-DOSE CUPS PO PRN ×2 (10:05→21:12)
--- NOTE | 2017-07-27 15:39 | PN ---
BHS Progress Note Note: CXR reviewed and results show Clear lungs.
[2017-07-27] MEDS: THIAMINE HCL 100 MG TABLET (FP) PO SCH (21:12)
[2017-07-27] MEDS: MELATONIN 5 MG TABLETS PO PRN (21:12)
[2017-07-28] MEDS ORDERED: METHADONE HCL 10 MG TABLET ONE (03:38)
[2017-07-28] MEDS ORDERED: METHADONE HCL 40 MG DISPERSABLE TABLET ONE (03:39)
[2017-07-28] MEDS: METHADONE PO SCH (06:30)
[2017-07-28] MEDS: PRENATAL VITAMINS W/ FOLIC ACID TABLET (FP) PO SCH (10:06)
[2017-07-28] MEDS: guaiFENesin/D-METHORPHAN HB 10 ML UNIT-DOSE CUPS PO PRN ×2 (10:06→21:22)
[2017-07-28] MEDS: NICOTINE 14 MG/24 HOURS TOPICAL PATCH TD SCH (10:07)
[2017-07-28] MEDS: MELATONIN 5 MG TABLETS PO PRN (21:21)
[2017-07-28] MEDS: THIAMINE HCL 100 MG TABLET (FP) PO SCH (21:21)
[2017-07-29] MEDS ORDERED: METHADONE HCL 10 MG TABLET ONE (04:28)
[2017-07-29] MEDS ORDERED: METHADONE HCL 40 MG DISPERSABLE TABLET ONE (04:29)
[2017-07-29] MEDS: METHADONE PO SCH (06:21)
[2017-07-29] MEDS: PRENATAL VITAMINS W/ FOLIC ACID TABLET (FP) PO SCH (09:59)
[2017-07-29] MEDS: guaiFENesin/D-METHORPHAN HB 10 ML UNIT-DOSE CUPS PO PRN ×2 (10:00→21:17)
[2017-07-29] MEDS: NICOTINE 14 MG/24 HOURS TOPICAL PATCH TD SCH (10:00)
[2017-07-29] MEDS: THIAMINE HCL 100 MG TABLET (FP) PO SCH (21:17)
[2017-07-29] MEDS: MELATONIN 5 MG TABLETS PO PRN (21:17)
[2017-07-30] MEDS ORDERED: METHADONE HCL 10 MG TABLET ONE (04:36)
[2017-07-30] MEDS ORDERED: METHADONE HCL 40 MG DISPERSABLE TABLET ONE (04:37)
[2017-07-30] MEDS: METHADONE PO SCH (06:51)
[2017-07-30] MEDS: PRENATAL VITAMINS W/ FOLIC ACID TABLET (FP) PO SCH (09:44)
[2017-07-30] MEDS: guaiFENesin/D-METHORPHAN HB 10 ML UNIT-DOSE CUPS PO PRN (09:46)
[2017-07-30] MEDS: NICOTINE 14 MG/24 HOURS TOPICAL PATCH TD SCH (09:46)
[2017-07-30] MEDS: IBUPROFEN 400 MG TABLET (FP) PO PRN (21:14)
[2017-07-30] MEDS: MELATONIN 5 MG TABLETS PO PRN (21:15)
[2017-07-30] MEDS: THIAMINE HCL 100 MG TABLET (FP) PO SCH (21:15)
--- NOTE | 2017-07-30 23:44 | PN ---
S Progress Note (SOAP) Subjective: Patient states " My tooth and my mouth hurts" Objective: 07/30/17 23:42 Vital Signs Temperature 98.8 F 07/30/17 06:56 Pulse Rate 66 07/30/17 06:56 Respiratory Rate 16 07/30/17 06:56 Blood Pressure 126/77 07/30/17 06:56 O2 Sat by Pulse Oximetry (%) Assessment: 07/30/17 23:42 Toothache Plan: Lidocaine 2% viscous oral / topical MM
[2017-07-30] MEDS: LIDOCAINE VISCOUS 2% ORAL/TOP 100 ML BOTTLE MM PRN (23:55)
[2017-07-31] MEDS ORDERED: METHADONE HCL 40 MG DISPERSABLE TABLET ONE (03:04)
[2017-07-31] MEDS ORDERED: METHADONE HCL 10 MG TABLET ONE (03:04)
[2017-07-31] MEDS: METHADONE PO SCH (06:58)
[2017-07-31] MEDS: PRENATAL VITAMINS W/ FOLIC ACID TABLET (FP) PO SCH (09:44)
[2017-07-31] MEDS: guaiFENesin/D-METHORPHAN HB 10 ML UNIT-DOSE CUPS PO PRN (09:44)
[2017-07-31] MEDS: NICOTINE 14 MG/24 HOURS TOPICAL PATCH TD SCH (09:45)
[2017-07-31] MEDS: LIDOCAINE VISCOUS 2% ORAL/TOP 100 ML BOTTLE MM PRN (16:44)
[2017-07-31] MEDS: ACETAMINOPHEN 325 MG TABLET (FP) PO PRN (21:18)
[2017-07-31] MEDS: THIAMINE HCL 100 MG TABLET (FP) PO SCH (21:18)
[2017-07-31] MEDS: hydrOXYzine PAMOATE 50 MG CAPSULE (FP) PO PRN (21:19)
[2017-07-31] MEDS: MELATONIN 5 MG TABLETS PO PRN (21:19)
[2017-08-01] MEDS ORDERED: METHADONE HCL 10 MG TABLET ONE (02:37)
[2017-08-01] MEDS ORDERED: METHADONE HCL 40 MG DISPERSABLE TABLET ONE (02:37)
[2017-08-01] MEDS: METHADONE PO SCH (06:34)
[2017-08-01 06:54] VITALS: BP 132/80; PULSE 78; TEMP 99.4
[2017-08-01] MEDS: NICOTINE 14 MG/24 HOURS TOPICAL PATCH TD SCH (10:20)
[2017-08-01] MEDS: PRENATAL VITAMINS W/ FOLIC ACID TABLET (FP) PO SCH (10:20)
--- NOTE | 2017-08-01 11:00 | PN ---
Psychiatric Progress Note Vital Signs: Vital Signs Period Temp Pulse Resp BP Sys/Argueta Pulse Ox Last 24 Hr 99.4 F 78 16-18 132/80 Date of Session: 08/01/17 Chief Complaint:: Discharge Note HPI: Patient addressing Cocaine and Cannabis Dependence comorbid with Opioid Dependence on Agonost Therapy and Nicotine Dependence Current Medications: Active Medications Generic Name Dose Route Start Last Admin Trade Name Freq PRN Reason Stop Dose Admin Acetaminophen 650 mg 07/15/17 15:58 07/31/17 21:18 Tylenol - PO 650 mg Q4H PRN Administration FEVER Al Hydroxide/Mg Hydroxide 30 ml 07/15/17 15:58 Mylanta Oral Suspension - PO Q6H PRN DYSPEPSIA Eucalyptus/Menthol/Phenol/Sorbitol 1 each 07/15/17 15:58 07/21/17 09:52 Cepastat Lozenge - MM 1 each Q4H PRN Administration SORE THROAT Guaifenesin 10 ml 07/15/17 15:58 07/31/17 09:44 Robitussin Dm - PO 10 ml Q6H PRN Administration COUGH Hydroxyzine Pamoate 50 mg 07/15/17 15:58 07/31/17 21:19 Vistaril - PO 50 mg Q4H PRN Administration AGITATION Ibuprofen 400 mg 07/15/17 15:58 07/30/17 21:14 Motrin - PO 400 mg Q6H PRN Administration Pain Level 4-6 Lidocaine HCl 15 ml 07/30/17 23:37 07/31/17 16:44 Xylocaine 2% Viscous MM 08/02/17 23:36 15 ml Q6H PRN Administration FOR TOOTHACHE Loperamide HCl 4 mg 07/15/17 15:58 Imodium - PO Q6H PRN DIARRHEA Magnesium Citrate 300 ml 07/15/17 15:58 Citroma - PO Q48H PRN CONSTIPATION Magnesium Hydroxide 30 ml 07/15/17 15:58 Milk Of Magnesia - PO DAILY PRN CONSTIPATION Melatonin 5 mg 07/15/17 22:00 07/31/17 21:19 Melatonin PO 5 mg HS PRN Administration INSOMNIA Methadone HCl 280 mg/ 300 mg 07/26/17 06:00 08/01/17 06:34 Methadone HCl 20 mg PO 300 mg DAILY@0600 MARCO Administration Nicotine 14 mg 07/16/17 10:00 08/01/17 10:20 Nicoderm Patch - TD Not Given DAILY MARCO Nicotine Polacrilex 2 mg 07/15/17 15:58 Nicorette Gum - BUC Q2H PRN NICOTINE REPLACEMENT RX Multivit/Folic Acid/Iron 1 tab 07/16/17 10:00 08/01/17 10:20 Vitamins (Sjr) - PO 1 tab DAILY MARCO Administration Pseudoephedrine/Triprolidine 1 combo 07/15/17 15:58 07/17/17 21:13 Actifed - PO 1 combo TID PRN Administration NASAL CONGESTION Thiamine HCl 100 mg 07/15/17 22:00 07/31/17 21:18 Vitamin B1 - PO 100 mg HS MARCO Administration Current Side Effect: No Lab tests ordered: Yes Lab tests reviewed: Yes Provider note:: Patient has completed this program today. He has met his treatment goals and will continue to address his issues in outpatient treatment at [facility]. Told va underwriter that from his participation in this program, he has learned the importance of making meetings and have a sponsor. He is stable for discharge today Total face to face time:: 35 Mental Status Exam - Mental Status Exam Alert and Oriented to: Time, Place, Person Cognitive Function: Fair Patient Appearance: Well Groomed Mood: Hopeful, Euthymic Affect: Appropriate Patient Behavior: Cooperative Speech Pattern: Clear Voice Loudness: Normal Thought Process: Intact Thought Disorder: Not Present Hallucinations: Denies Suicidal Ideation: Denies Insight/Judgement: Fair Sleep: Fair Appetite: Good Muscle strength/Tone: Normal Gait/Station: Normal Psychiatric Treatment Plan - Problem List (1) Cocaine dependence Qualifiers: Substance use status: uncomplicated Qualified Code(s): F14.20 - Cocaine dependence, uncomplicated (4) Nicotine dependence Qualifiers: Nicotine product type: cigarettes Substance use status: in withdrawal Qualified Code(s): F17.213 - Nicotine dependence, cigarettes, with withdrawal Initial treatment plan: Patient is discharged today and referred to [facility] for outpatient treatment
== END 2017-08-01 11:20 | disposition home or self-care (01) | DRG 772 ==
LOC: YASAS 14:32 → Y5N 14:33
PROVIDERS: ADMIT Psychiatry & Neurology Psychiatry; ATTEND Psychiatry & Neurology Psychiatry
PROC: HZ42ZZZ Group Counseling for Substance Abuse Treatment, Cognitive-Behavioral (ICD-10-PCS; principal; 2017-07-15)
DX: F11.20 Opioid dependence, uncomplicated (principal); F14.20 Cocaine dependence, uncomplicated; F12.20 Cannabis dependence, uncomplicated; F17.213 Nicotine dependence, cigarettes, with withdrawal; R05 Cough
CPT/HCPCS: 71046-TC-FY

== ENCOUNTER 2017-11-08 12:04 | Inpatient (IN) | payer OTHER ==
[2017-11-08 12:26] VITALS: BMI 21.9
--- NOTE | 2017-11-08 16:37 | HP ---
CIWA Score - CIWA Score Nausea/Vomitin Muscle Tremors: 2 Anxiety: 3 Agitation: 1-Slight > Activity Paroxysmal Sweats: 3 Orientation: 0-Oriented Tacttile Disturbances: 0-None Auditory Disturbances: 2-Mild Harshness/Frighten Visual Disturbances: 2-Mild Sensitivity Headache: 0-None Present CIWA-Ar Total Score: 16 Admission ROS S - HPI Chief Complaint: "I'm here to detox from Benzo's, Cocaine, and Marijuana." Patient is here to Detox from Benzodiazepines (non-prescribed). Allergies/Adverse Reactions: Allergies Allergy/AdvReac Type Severity Reaction Status Date / Time No Known Allergies Allergy Verified 11/08/17 13:24 History of Present Illness: Patient is a 27 YO male here to Detox from Benzodiazepines (Klonopin, Xanax, Non -Prescribed). Patient has had two previous Detox/Rehab admissions at [facility] (Last : 06/2017). Patent is a client at at [facility] ([place], [place] Daily Dose 320 mg PO; Last Days medicated: 11/07/2017). Patient denies any periods of non-drug use in recent years). Exam Limitations: No Limitations - Ebola screening Have you traveled outside of the country in the last 21 days: No (N) Have you had contact with anyone from an Ebola affected area: No Have you been sick,other than usual withdrawal symptoms: No Do you have a fever: No - Review of Systems Constitutional: Chills, Diaphoresis, Fever, Loss of Appetite, Malaise, Night Sweats, Changes in sleep EENT: reports: No Symptoms Reported Respiratory: reports: No Symptoms reported Cardiac: reports: No Symptoms Reported GI: reports: Poor Appetite, Indigestion, Abdominal cramping : reports: No Symptoms Reported Musculoskeletal: reports: Joint Pain, Muscle Pain, Joint Stiffness Integumentary: reports: No Symptoms Reported Neuro: reports: Seizure (Due to Withdrawal from Benzodiazepines. Last episode: 05/2017.), Tremors Endocrine: reports: No Symptoms Reported Hematology: reports: No Symptoms Reported Psychiatric: reports: Judgement Intact, Mood/Affect Appropiate, Orientated x3, Anxious, Depressed (and Anxiety.), other (Insomnia.) Other Systems: Reviewed and Negative Patient History - Patient Medical History Hx Anemia: No Hx Asthma: No Hx Chronic Obstructive Pulmonary Disease (COPD): No Hx Cancer: No Hx Cardiac Disorders: No Hx Congestive Heart Failure: No Hx Hypertension: No Hx Hypercholesterolemia: No Hx Pacemaker: No HX Cerebrovascular Accident: No Hx Seizures: Yes (Due to Benzodiazepine withdrawal; last episode: approx. 2017.) Hx Dementia: No Hx Diabetes: No Hx Gastrointestinal Disorders: No Hx Liver Disease: No Hx Genitourinary Disorders: No Hx Sexually Transmitted Disorders: No Hx Renal Disease (ESRD): No Hx Thyroid Disease: No Hx Human Immunodeficiency Virus (HIV): No (Last Tested approx. 1 week ago: NEGATIVE.) Hx Hepatitis C: No (Last Tested approx. 1 week ago: NEGATIVE.) Hx Depression: Yes (No meds.) Hx Suicide Attempt: No (PATIENT DENIES CURRENT SI / HI.) Hx Bipolar Disorder: No Hx Schizophrenia: No Other Medical History: Insomnia (no meds). - Patient Surgical History Past Surgical History: No Hx Neurologic Surgery: No Hx Cataract Extraction: No Hx Cardiac Surgery: No Hx Lung Surgery: No Hx Breast Surgery: No Hx Breast Biopsy: No Hx Abdominal Surgery: No Hx Appendectomy: No Hx Cholecystectomy: No Hx Genitourinary Surgery: No Hx Section: No Hx Orthopedic Surgery: No Other Surgical History: DENIES. Anesthesia Reaction: No - PPD History Previous Implant?: Yes Documented Results: Negative w/proof Implanted On Prior [facility] Admission?: Yes Date: 02/16/17 Results: 0 MM PPD to be Administered?: No - Reproductive History Patient is a Female of Child Bearing Age (11 -55 yrs old): No (PATIENT IS MALE.) - Smoking Cessation Smoking history: Current every day smoker Have you smoked in the past 12 months: Yes Aproximately how many cigarettes per day: 20 Cigars Per Day: 0 Hx Chewing Tobacco Use: No Initiated information on smoking cessation: Yes 'Breaking Loose' booklet given: 11/08/17 (GIVEN TO PATIENT.) - Substance & Tx. History Hx Alcohol Use: No Hx Substance Use: Yes Substance Use Type: Cocaine, Heroin, Opiates, Prescribed (MMTP.), Tranquilizers Hx Substance Use Treatment: Yes (2 Previous Detox/Rehab admissions at [facility] (Last : 06/2017).) - Substances Abused Cocaine Route: Inhalation Frequency: Daily Amount used: $10 Age of first use: 24 Date of Last Use: 11/06/17 Marijuana/Hashish Route: Smoking Frequency: 1-2 times per week Amount used: 1 BLUNT Age of first use: 16 Date of Last Use: 11/07/17 XANAX OR KLONOPIN Route: Oral Frequency: Daily Amount used: 4-6MG OR 8-10MG Age of first use: 24 Date of Last Use: 11/07/17 Family Disease History - Family Disease History Family Disease History: Diabetes: Father (BLOOD CLOT ), Brother, Heart Disease: Mother (, [place].), Brother, Other: Father Admission Physical Exam S - Vital Signs Vital Signs: Vital Signs - 24 hr 11/08/17 12:24 Temperature 98.7 F Pulse Rate 66 Respiratory 18 Rate Blood Pressure 109/69 - Physical General Appearance: Yes: No Apparent Distress, Appropriately Dressed, Thin, Tremorous, Anxious HEENTM: Yes: Hearing grossly Normal, Normocephalic, Normal Voice, QUIN, Pharynx Normal Respiratory: Yes: Chest Non-Tender, Lungs Clear, No Respiratory Distress, No Accessory Muscle Use Neck: Yes: No masses,lesions,Nodules, Supple, Trachea in good position Breast: Yes: Breast Exam Deferred Cardiology: Yes: Regular Rhythm, Regular Rate, S1, S2 Abdominal: Yes: Normal Bowel Sounds, Non Tender, Flat, Soft Genitourinary: Yes: Within Normal Limits Back: Yes: Normal Inspection Musculoskeletal: Yes: Gait Steady, Joint Stiffness, Muscle Pain Extremities: Yes: Normal Capillary Refill, Normal Inspection, Normal Range of Motion, Non-Tender, Tremors Neurological: Yes: Fully Oriented, Alert, Normal Mood/Affect, Normal Response Integumentary: Yes: Normal Color, Dry, Warm Lymphatic: Yes: Within Normal Limits - Diagnostic (1) Insomnia Current Visit: Yes Status: Chronic Qualifiers: Insomnia type: unspecified Qualified Code(s): G47.00 - Insomnia, unspecified (2) Nicotine dependence Current Visit: Yes Status: Chronic Qualifiers: Nicotine product type: cigarettes Substance use status: in withdrawal Qualified Code(s): F17.213 - Nicotine dependence, cigarettes, with withdrawal (3) Sedative, hypnotic or anxiolytic dependence with withdrawal, uncomplicated Current Visit: Yes Status: Acute (4) Opioid dependence on agonist therapy Current Visit: Yes Status: Chronic (5) Cocaine dependence, uncomplicated Current Visit: Yes Status: Chronic (6) Methadone maintenance therapy patient Current Visit: Yes Status: Chronic (7) Cannabis dependence, uncomplicated Current Visit: Yes Status: Chronic (8) History of seizures Current Visit: Yes Status: Chronic Comment: Due to Withdrawal. Cleared for Admission [facility] - Detox or Rehab [facility] Level of Care: Medically Managed Detox Regimen/Protocol: Valium [facility] Breath Alcohol Content Breath Alcohol Content: 0 Urine Drug Screen - Results Drug Screen Negative: No Urine Drug Screen Results: THC-Marijuana, REENA-Cocaine, BZO-Benzodiazepines, MTD- Methadone, TCA-Tricyclic Antidepress
[2017-11-08] MEDS ORDERED: MAG HYDROX/AL HYDROX/SIMETH 30 ML UNIT-DOSE CUP PO PRN (17:10)
[2017-11-08] MEDS ORDERED: ACETAMINOPHEN 325 MG TABLET (FP) PO PRN (17:10)
[2017-11-08] MEDS ORDERED: P-EPHED 60MG/TRIPROLIDI 2.5MG TABLET PO PRN (17:10)
[2017-11-08] MEDS ORDERED: LOPERAMIDE HCL 2 MG CAPSULE PO PRN (17:10)
[2017-11-08] MEDS ORDERED: MAGNESIUM CITRATE 300 ML BOTTLE PO PRN (17:10)
[2017-11-08] MEDS ORDERED: IBUPROFEN 400 MG TABLET (FP) PO PRN (17:10)
[2017-11-08] MEDS ORDERED: MENTHOL/PHENOL 1 EACH UD MM PRN (17:10)
[2017-11-08] MEDS ORDERED: NICOTINE POLACRILEX 2 MG GUM BC PRN (17:10)
[2017-11-08] MEDS ORDERED: guaiFENesin/D-METHORPHAN HB 10 ML UNIT-DOSE CUPS PO PRN (17:10)
[2017-11-08] MEDS ORDERED: MAGNESIUM HYDROX 2400MG/30ML ORAL SUSPENSION 30 ML CUP PO PRN (17:10)
[2017-11-08] MEDS ORDERED: diazePAM 5 MG TABLET PO ONE (17:30)
[2017-11-08] MEDS: METHADONE HCL 40 MG DISPERSABLE TABLET PO SCH (18:08)
[2017-11-08] MEDS: NICOTINE 21 MG/24 HOURS TOPICAL PATCH TD SCH (18:09)
[2017-11-08 20:18] LABS: URINE APPEARANCE CLEAR; URINE BILIRUBIN NEGATIVE (<2.0 mg/dL); URINE COLOR YELLOW; URINE GLUCOSE (UA) NEGATIVE (NEGATIVE); URINE KETONE NEGATIVE (NEGATIVE); URINE LEUK ESTERASE TRACE (NEGATIVE); URINE NITRITE NEGATIVE (NEGATIVE); URINE PROTEIN NEGATIVE (NEGATIVE); URINE UROBILINOGEN 4.0 E.U/dl mg/dL (0.2-1.0)
[2017-11-08 20:44] LABS: CALCIUM OXALATE CRYSTALS RARE /hpf (NONE SEEN); EPI CELLS RARE /HPF (FEW)
[2017-11-08] MEDS: THIAMINE HCL 100 MG TABLET (FP) PO SCH (22:33)
[2017-11-08] MEDS: diazePAM 5 MG TABLET PO SCH (22:33)
[2017-11-08] MEDS: MELATONIN 5 MG TABLETS PO PRN (22:34)
[2017-11-08] MEDS: diazePAM 5 MG TABLET PO PRN (23:27)
[2017-11-09] MEDS: METHADONE HCL 40 MG DISPERSABLE TABLET PO SCH (05:52)
[2017-11-09] MEDS: diazePAM 5 MG TABLET PO SCH ×3 (05:52→22:32)
[2017-11-09] MEDS: diazePAM 5 MG TABLET PO PRN ×4 (08:44→20:58)
[2017-11-09] MEDS: PRENATAL VITAMINS W/ FOLIC ACID TABLET (FP) PO SCH (10:25)
[2017-11-09] MEDS: NICOTINE 21 MG/24 HOURS TOPICAL PATCH TD SCH (10:26)
[2017-11-09 11:06] LABS: HEMATOCRIT 33.4 % (35.4-49); HEMOGLOBIN 10.8 GM/dL (11.7-16.9); MCH 26.8 pg (25.7-33.7); MCHC 32.5 g/dl (32.0-35.9); MEAN CELL VOLUME 82.5 fl (80-96); MEAN PLT VOLUME 8.9 fl (7.5-11.1); PLATELET COUNT 334 K/MM3 (134-434); RBC 4.05 M/mm3 (4.00-5.60); RDW 14.9 % (11.9-15.9)
[2017-11-09 11:31] LABS: CHLORIDE 104 mmol/L (98-107); POTASSIUM 4.2 mmol/L (3.5-5.1); SODIUM 143 mmol/L (136-145)
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
[2017-11-09 11:58] LABS: ALBUMIN 3.6 g/dl (3.4-5.0); ALK PHOS 100 U/L (45-117); ANION GAP 10 MMOL/L (8-16); BILIRUBIN,TOTAL 0.4 mg/dL (0.2-1.0); BLOOD UREA NITROGEN 20 mg/dL (7-18); CALCIUM 8.8 mg/dL (8.5-10.1); CO2 29 mmol/L (21-32); CREATININE 0.7 mg/dL (0.7-1.3); GLUCOSE,RANDOM 90 mg/dL (74-106); SGOT/AST 34 U/L (15-37); SGPT/ALT 58 U/L (12-78); TOT PROT 7.7 g/dl (6.4-8.2)
--- NOTE | 2017-11-09 12:44 | PN ---
S CIWA - CIWA Score Nausea/Vomitin-No Nausea/No Vomiting Muscle Tremors: 3 Anxiety: 4-Mod. Anxious/Guarded Agitation: 3 Paroxysmal Sweats: 2 Orientation: 0-Oriented Tacttile Disturbances: 1-Very Mild Itch/Numbness Auditory Disturbances: 2-Mild Harshness/Frighten Visual Disturbances: 0-None Headache: 0-None Present CIWA-Ar Total Score: 15 BHS Progress Note (SOAP) Subjective: Anxious, Tremors, Interrupted Sleep. Objective: PATIENT A & O X 3, OBSERVED AMBULATING ON UNIT. NO ACUTE DISTRESS. 11/09/17 12:45 Vital Signs Temperature 97.0 F L 11/09/17 10:00 Pulse Rate 63 11/09/17 10:00 Respiratory Rate 18 11/09/17 10:00 Blood Pressure 108/67 11/09/17 10:00 O2 Sat by Pulse Oximetry (%) Laboratory Tests 11/08/17 11/09/17 11/09/17 19:00 06:00 06:00 WBC 5.0 RBC 4.05 Hgb 10.8 L Hct 33.4 L MCV 82.5 MCH 26.8 MCHC 32.5 RDW 14.9 Plt Count 334 D MPV 8.9 D Sodium 143 Potassium 4.2 Chloride 104 Carbon Dioxide 29 Anion Gap 10 BUN 20 H Creatinine 0.7 Creat Clearance w eGFR > 60 Random Glucose 90 Calcium 8.8 Total Bilirubin 0.4 AST 34 D ALT 58 D Alkaline Phosphatase 100 Total Protein 7.7 Albumin 3.6 Urine Color Yellow Urine Appearance Clear Urine pH 6.0 Ur Specific [place] 1.026 Urine Protein Negative Urine Glucose (UA) Negative Urine Ketones Negative Urine Blood Negative Urine Nitrite Negative Urine Bilirubin Negative Urine Urobilinogen 4.0 e.u/dl Ur Leukocyte Esterase Trace Urine WBC (Auto) <1 Urine RBC (Auto) 6 Ur Epithelial Cells Rare Calcium Oxalate Crystal Rare LABS NOTED. Assessment: 11/09/17 12:46 WITHDRAWAL SYMPTOMS. Plan: CONTINUE DETOX. INCREASE DAILY PO FLUID INTAKE.
--- NOTE | 2017-11-09 20:18 | EKG ---
Test Reason : Blood Pressure : / mmHG Vent. Rate : 067 BPM Atrial Rate : 067 BPM P-R Int : 130 ms QRS Dur : 078 ms QT Int : 416 ms P-R-T Axes : 057 037 025 degrees QTc Int : 439 ms NORMAL SINUS RHYTHM NORMAL ECG WHEN COMPARED WITH ECG OF 11-JUL-2017 17:32, NO SIGNIFICANT CHANGE WAS FOUND Confirmed by AYAD LEAL MD ([id number]) on 11/09/2017 8:18:53 PM Referred By: Confirmed By:AYAD LEAL MD
[2017-11-09] MEDS ORDERED: ZOLPIDEM TARTRATE 5 MG TABLET PO PRN (22:00)
[2017-11-09] MEDS: THIAMINE HCL 100 MG TABLET (FP) PO SCH (22:32)
[2017-11-09] MEDS: MELATONIN 5 MG TABLETS PO PRN (22:34)
[2017-11-10] MEDS: diazePAM 5 MG TABLET PO PRN ×4 (00:58→16:57)
[2017-11-10] MEDS: METHADONE HCL 40 MG DISPERSABLE TABLET PO SCH (06:04)
[2017-11-10] MEDS: diazePAM 5 MG TABLET PO SCH ×2 (10:49→22:23)
[2017-11-10] MEDS: PRENATAL VITAMINS W/ FOLIC ACID TABLET (FP) PO SCH (10:49)
[2017-11-10] MEDS: NICOTINE 21 MG/24 HOURS TOPICAL PATCH TD SCH (10:50)
--- NOTE | 2017-11-10 14:28 | PN ---
[facility] CIWA - CIWA Score Nausea/Vomitin-No Nausea/No Vomiting Muscle Tremors: None Anxiety: 4-Mod. Anxious/Guarded Agitation: 4-Moderately Restless Paroxysmal Sweats: No Perspiration Orientation: 0-Oriented Tacttile Disturbances: 2-Mild Itch/Numbness/Burn Auditory Disturbances: 0-None Visual Disturbances: 2-Mild Sensitivity Headache: 0-None Present CIWA-Ar Total Score: 12 BHS Progress Note (SOAP) Subjective: Stomach Cramping, Interrupted Sleep, Anxious, Fatigue. Objective: PATIENT A & O X 3, OBSERVED AMBULATING ON UNIT. NO ACUTE DISTRESS. 11/10/17 14:27 Vital Signs Temperature 97.4 F L 11/10/17 10:04 Pulse Rate 61 11/10/17 10:04 Respiratory Rate 16 11/10/17 10:04 Blood Pressure 104/59 11/10/17 10:04 O2 Sat by Pulse Oximetry (%) Laboratory Tests 11/08/17 11/09/17 11/09/17 19:00 06:00 06:00 WBC 5.0 RBC 4.05 Hgb 10.8 L Hct 33.4 L MCV 82.5 MCH 26.8 MCHC 32.5 RDW 14.9 Plt Count 334 D MPV 8.9 D Sodium 143 Potassium 4.2 Chloride 104 Carbon Dioxide 29 Anion Gap 10 BUN 20 H Creatinine 0.7 Creat Clearance w eGFR > 60 Random Glucose 90 Calcium 8.8 Total Bilirubin 0.4 AST 34 D ALT 58 D Alkaline Phosphatase 100 Total Protein 7.7 Albumin 3.6 Urine Color Yellow Urine Appearance Clear Urine pH 6.0 Ur Specific [place] 1.026 Urine Protein Negative Urine Glucose (UA) Negative Urine Ketones Negative Urine Blood Negative Urine Nitrite Negative Urine Bilirubin Negative Urine Urobilinogen 4.0 e.u/dl Ur Leukocyte Esterase Trace Urine WBC (Auto) <1 Urine RBC (Auto) 6 Ur Epithelial Cells Rare Calcium Oxalate Crystal Rare RPR Titer 11/09/17 06:00 WBC RBC Hgb Hct MCV MCH MCHC RDW Plt Count MPV Sodium Potassium Chloride Carbon Dioxide Anion Gap BUN Creatinine Creat Clearance w eGFR Random Glucose Calcium Total Bilirubin AST ALT Alkaline Phosphatase Total Protein Albumin Urine Color Urine Appearance Urine pH Ur Specific [place] Urine Protein Urine Glucose (UA) Urine Ketones Urine Blood Urine Nitrite Urine Bilirubin Urine Urobilinogen Ur Leukocyte Esterase Urine WBC (Auto) Urine RBC (Auto) Ur Epithelial Cells Calcium Oxalate Crystal RPR Titer Nonreactive LABS NOTED. Assessment: 11/10/17 14:27 WITHDRAWAL SYMPTOMS. Plan: CONTINUE DETOX. INCREASE DAILY PO FLUID INTAKE.
--- NOTE | 2017-11-10 16:04 | PN ---
Psychiatric Progress Note Vital Signs: Vital Signs Period Temp Pulse Resp BP Sys/Argueta Pulse Ox Last 24 Hr 96.9 F-98.1 F 61-68 -18 104-108/56-67 Date of Session: 11/10/17 Chief Complaint:: "I can't sleep." HPI: Patient admitted to for opioid,xanax,marijuana and cocaine dependence. ROS: Unremarkable Current Medications: Active Medications Generic Name Dose Route Start Last Admin Trade Name Freq PRN Reason Stop Dose Admin Acetaminophen 650 mg 11/08/17 17:10 Tylenol - PO Q4H PRN FEVER Al Hydroxide/Mg Hydroxide 30 ml 11/08/17 17:10 Mylanta Oral Suspension - PO Q6H PRN DYSPEPSIA Diazepam 10 mg 11/08/17 17:10 11/10/17 12:52 Valium - PO 11/11/17 17:09 10 mg Q4H PRN Administration WITHDRAWAL(CONT SUBST) Diazepam 5 mg 11/10/17 10:00 11/10/17 10:49 Valium - PO 11/11/17 22:01 5 mg BID MARCO Administration Diazepam 5 mg 11/12/17 10:00 Valium - PO 11/12/17 10:01 DAILY MARCO Eucalyptus/Menthol/Phenol/Sorbitol 1 each 11/08/17 17:10 Cepastat Lozenge - MM Q4H PRN SORE THROAT Guaifenesin 10 ml 11/08/17 17:10 Robitussin Dm - PO Q6H PRN COUGH Ibuprofen 400 mg 11/08/17 17:10 Motrin - PO Q6H PRN PAIN LEVEL 4-6 Loperamide HCl 4 mg 11/08/17 17:10 Imodium - PO Q6H PRN DIARRHEA Magnesium Citrate 300 ml 11/08/17 17:10 Citroma - PO Q48H PRN CONSTIPATION Magnesium Hydroxide 30 ml 11/08/17 17:10 Milk Of Magnesia - PO DAILY PRN CONSTIPATION Melatonin 5 mg 11/08/17 22:00 11/09/17 22:34 Melatonin PO 5 mg HS PRN Administration INSOMNIA Methadone HCl 320 mg 11/08/17 17:45 11/10/17 06:04 Dolophine - PO 11/15/17 17:44 320 mg DAILY@0600 MARCO Administration Nicotine 21 mg 11/08/17 17:45 11/10/17 10:50 Nicoderm Patch - TD 21 mg DAILY MARCO Administration Nicotine Polacrilex 2 mg 11/08/17 17:10 Nicorette Gum - BC Q2H PRN NICOTINE REPLACEMENT RX Multivit/Folic Acid/Iron 1 tab 11/09/17 10:00 11/10/17 10:49 Vitamins (Sjr) - PO 1 tab DAILY MARCO Administration Pseudoephedrine/Triprolidine 1 combo 11/08/17 17:10 Actifed - PO TID PRN NASAL CONGESTION Thiamine HCl 100 mg 11/08/17 22:00 11/09/17 22:32 Vitamin B1 - PO 100 mg HS MARCO Administration Zolpidem Tartrate 5 mg 11/09/17 22:00 Ambien - PO 11/12/17 21:59 HS PRN INSOMNIA Medication(s) Change(s): Ambien 10mg qhs prn for insomnia. Current Side Effect: No Lab tests ordered: No Lab tests reviewed: Yes Provider note:: Simulation Analyst patient with patient for psychiatric follow up. Dr. Tong note read and appreciated. Pt. reports poor sleep. Ambien 5mg ordered by dr. Tong but as per the MAR patient received melatonin 5mg. Pt. informed that ambien 5mg was not given to patient. Pt. reports nightmares when accepting ambien and is requesting an alternative sleep aid. Pt. states seroquel has worked effectively for sleep. Sleep hygiene discussed. Will discontinue ambien 5mg and order seroquel 50mg qhs. Benefits and side effects discussed. Verbal consent given. Total face to face time:: 25 Mental Status Exam - Mental Status Exam Alert and Oriented to: Time, Place, Person Cognitive Function: Good Patient Appearance: Well Groomed Mood: Euthymic Affect: Mood Congruent Patient Behavior: Appropriate, Cooperative Speech Pattern: Clear, Appropriate Voice Loudness: Normal Thought Process: Intact Thought Disorder: Not Present Hallucinations: Denies Suicidal Ideation: Denies Homicidal Ideation: Denies Insight/Judgement: Poor Sleep: Poorly Appetite: Fair Muscle strength/Tone: Normal Gait/Station: Normal Psychiatric Treatment Plan - Problem List (1) Cannabis dependence, uncomplicated Current Visit: Yes (2) Cocaine dependence, uncomplicated Current Visit: Yes (3) Insomnia Current Visit: Yes Qualifiers: Insomnia type: unspecified Qualified Code(s): G47.00 - Insomnia, unspecified (4) Nicotine dependence Current Visit: Yes Qualifiers: Nicotine product type: cigarettes Substance use status: in withdrawal Qualified Code(s): F17.213 - Nicotine dependence, cigarettes, with withdrawal (5) Opioid dependence on agonist therapy Current Visit: Yes (6) Sedative, hypnotic or anxiolytic dependence with withdrawal, uncomplicated Current Visit: Yes (7) Substance induced mood disorder Current Visit: Yes
[2017-11-10] MEDS: QUEtiapine FUMARATE 50 MG TABLET PO SCH (22:23)
[2017-11-10] MEDS: THIAMINE HCL 100 MG TABLET (FP) PO SCH (22:23)
[2017-11-11] MEDS: METHADONE HCL 40 MG DISPERSABLE TABLET PO SCH (06:50)
[2017-11-11] MEDS: diazePAM 5 MG TABLET PO PRN ×2 (06:56→14:01)
[2017-11-11] MEDS: diazePAM 5 MG TABLET PO SCH ×2 (10:14→22:32)
[2017-11-11] MEDS: NICOTINE 21 MG/24 HOURS TOPICAL PATCH TD SCH (10:14)
[2017-11-11] MEDS: PRENATAL VITAMINS W/ FOLIC ACID TABLET (FP) PO SCH (10:14)
--- NOTE | 2017-11-11 12:46 | PN ---
BHS Progress Note (SOAP) Subjective: Fatigue, Anxious. Objective: PATIENT A & O X 3, OBSERVED AMBULATING ON UNIT. NO ACUTE DISTRESS. 11/11/17 12:45 Vital Signs Temperature 97.8 F 11/11/17 09:55 Pulse Rate 63 11/11/17 09:55 Respiratory Rate 18 11/11/17 09:55 Blood Pressure 100/61 11/11/17 09:55 O2 Sat by Pulse Oximetry (%) Laboratory Tests 11/08/17 11/09/17 11/09/17 19:00 06:00 06:00 WBC 5.0 RBC 4.05 Hgb 10.8 L Hct 33.4 L MCV 82.5 MCH 26.8 MCHC 32.5 RDW 14.9 Plt Count 334 D MPV 8.9 D Sodium 143 Potassium 4.2 Chloride 104 Carbon Dioxide 29 Anion Gap 10 BUN 20 H Creatinine 0.7 Creat Clearance w eGFR > 60 Random Glucose 90 Calcium 8.8 Total Bilirubin 0.4 AST 34 D ALT 58 D Alkaline Phosphatase 100 Total Protein 7.7 Albumin 3.6 Urine Color Yellow Urine Appearance Clear Urine pH 6.0 Ur Specific [place] 1.026 Urine Protein Negative Urine Glucose (UA) Negative Urine Ketones Negative Urine Blood Negative Urine Nitrite Negative Urine Bilirubin Negative Urine Urobilinogen 4.0 e.u/dl Ur Leukocyte Esterase Trace Urine WBC (Auto) <1 Urine RBC (Auto) 6 Ur Epithelial Cells Rare Calcium Oxalate Crystal Rare RPR Titer 11/09/17 06:00 WBC RBC Hgb Hct MCV MCH MCHC RDW Plt Count MPV Sodium Potassium Chloride Carbon Dioxide Anion Gap BUN Creatinine Creat Clearance w eGFR Random Glucose Calcium Total Bilirubin AST ALT Alkaline Phosphatase Total Protein Albumin Urine Color Urine Appearance Urine pH Ur Specific [place] Urine Protein Urine Glucose (UA) Urine Ketones Urine Blood Urine Nitrite Urine Bilirubin Urine Urobilinogen Ur Leukocyte Esterase Urine WBC (Auto) Urine RBC (Auto) Ur Epithelial Cells Calcium Oxalate Crystal RPR Titer Nonreactive LABS NOTED. Assessment: 11/11/17 12:45 WITHDRAWAL SYMPTOMS. Plan: CONTINUE DETOX.
[2017-11-11] MEDS: QUEtiapine FUMARATE 50 MG TABLET PO SCH (22:31)
[2017-11-11] MEDS: THIAMINE HCL 100 MG TABLET (FP) PO SCH (22:31)
[2017-11-12] MEDS: METHADONE HCL 40 MG DISPERSABLE TABLET PO SCH (05:20)
[2017-11-12 06:36] VITALS: BP 101/59; PULSE 75; TEMP 98.3
[2017-11-12] MEDS ORDERED: diazePAM 5 MG TABLET PO SCH (10:00)
--- NOTE | 2017-11-12 21:21 | PN ---
BHS Progress Note (SOAP) Subjective: Patient left Detox unit early in AM (so as to get back to MMTP Program), prior to arrival of [facility] DEVELOPER on unit. Objective: 11/12/17 21:20 Vital Signs Temperature 98.3 F 11/12/17 06:35 Pulse Rate 75 11/12/17 06:35 Respiratory Rate 18 11/12/17 06:35 Blood Pressure 101/59 11/12/17 06:35 O2 Sat by Pulse Oximetry (%) Laboratory Tests 11/08/17 11/09/17 11/09/17 19:00 06:00 06:00 WBC 5.0 RBC 4.05 Hgb 10.8 L Hct 33.4 L MCV 82.5 MCH 26.8 MCHC 32.5 RDW 14.9 Plt Count 334 D MPV 8.9 D Sodium 143 Potassium 4.2 Chloride 104 Carbon Dioxide 29 Anion Gap 10 BUN 20 H Creatinine 0.7 Creat Clearance w eGFR > 60 Random Glucose 90 Calcium 8.8 Total Bilirubin 0.4 AST 34 D ALT 58 D Alkaline Phosphatase 100 Total Protein 7.7 Albumin 3.6 Urine Color Yellow Urine Appearance Clear Urine pH 6.0 Ur Specific [place] 1.026 Urine Protein Negative Urine Glucose (UA) Negative Urine Ketones Negative Urine Blood Negative Urine Nitrite Negative Urine Bilirubin Negative Urine Urobilinogen 4.0 e.u/dl Ur Leukocyte Esterase Trace Urine WBC (Auto) <1 Urine RBC (Auto) 6 Ur Epithelial Cells Rare Calcium Oxalate Crystal Rare RPR Titer 11/09/17 06:00 WBC RBC Hgb Hct MCV MCH MCHC RDW Plt Count MPV Sodium Potassium Chloride Carbon Dioxide Anion Gap BUN Creatinine Creat Clearance w eGFR Random Glucose Calcium Total Bilirubin AST ALT Alkaline Phosphatase Total Protein Albumin Urine Color Urine Appearance Urine pH Ur Specific [place] Urine Protein Urine Glucose (UA) Urine Ketones Urine Blood Urine Nitrite Urine Bilirubin Urine Urobilinogen Ur Leukocyte Esterase Urine WBC (Auto) Urine RBC (Auto) Ur Epithelial Cells Calcium Oxalate Crystal RPR Titer Nonreactive LABS NOTED. Assessment: 11/12/17 21:20 COMPLETION OF DETOX REGIMEN. Plan: PATIENT SCHEDULED FOR DISCHARGE FROM DETOX UNIT TODAY.
--- NOTE | 2017-11-12 21:28 | DS ---
[facility] Detox Discharge Summary Admission Date: 11/08/17 Discharge Date: 11/12/17 - History Present History: Cannabis Dependence, Cocaine Dependence, Opioid Dependence, Sedative Dependence, MMTP Additional Comments: NO BEDS ARE AVAILABLE AT [facility] AT THIS TIME, PATIENT WILL RETURN TO HIS [facility] , THEN [facility] IN THE NEXT FEW DAYS TO INQUIRE ABOUT POSSIBLE REHAB ADMISSION. Pertinent Past History: History of Seizures (due to Withdrawal), History of Depression, Anxiety, Insomnia. - Physical Exam Results Vital Signs: Vital Signs Temperature 98.3 F 11/12/17 06:35 Pulse Rate 75 11/12/17 06:35 Respiratory Rate 18 11/12/17 06:35 Blood Pressure 101/59 11/12/17 06:35 O2 Sat by Pulse Oximetry (%) Pertinent Admission Physical Exam Findings: WITHDRAWAL SYMPTOMS. Laboratory Tests 11/08/17 11/09/17 11/09/17 19:00 06:00 06:00 WBC 5.0 RBC 4.05 Hgb 10.8 L Hct 33.4 L MCV 82.5 MCH 26.8 MCHC 32.5 RDW 14.9 Plt Count 334 D MPV 8.9 D Sodium 143 Potassium 4.2 Chloride 104 Carbon Dioxide 29 Anion Gap 10 BUN 20 H Creatinine 0.7 Creat Clearance w eGFR > 60 Random Glucose 90 Calcium 8.8 Total Bilirubin 0.4 AST 34 D ALT 58 D Alkaline Phosphatase 100 Total Protein 7.7 Albumin 3.6 Urine Color Yellow Urine Appearance Clear Urine pH 6.0 Ur Specific [place] 1.026 Urine Protein Negative Urine Glucose (UA) Negative Urine Ketones Negative Urine Blood Negative Urine Nitrite Negative Urine Bilirubin Negative Urine Urobilinogen 4.0 e.u/dl Ur Leukocyte Esterase Trace Urine WBC (Auto) <1 Urine RBC (Auto) 6 Ur Epithelial Cells Rare Calcium Oxalate Crystal Rare RPR Titer 11/09/17 06:00 WBC RBC Hgb Hct MCV MCH MCHC RDW Plt Count MPV Sodium Potassium Chloride Carbon Dioxide Anion Gap BUN Creatinine Creat Clearance w eGFR Random Glucose Calcium Total Bilirubin AST ALT Alkaline Phosphatase Total Protein Albumin Urine Color Urine Appearance Urine pH Ur Specific [place] Urine Protein Urine Glucose (UA) Urine Ketones Urine Blood Urine Nitrite Urine Bilirubin Urine Urobilinogen Ur Leukocyte Esterase Urine WBC (Auto) Urine RBC (Auto) Ur Epithelial Cells Calcium Oxalate Crystal RPR Titer Nonreactive LABS NOTED. - Treatment Hospital Course: Detox Protocol Followed, Detoxed Safely, Responded well, Discharged Condition Good, Rehab Referral Accepted Patient has Accepted a Rehab Referral to: [facility] ([place] . - Medication Discharge Medications: Ambulatory Orders NK [No Known Home Medication] 11/08/17 - Diagnosis (1) Insomnia Status: Acute Qualifiers: Insomnia type: unspecified Qualified Code(s): G47.00 - Insomnia, unspecified (2) Nicotine dependence Status: Acute Qualifiers: Nicotine product type: cigarettes Substance use status: in withdrawal Qualified Code(s): F17.213 - Nicotine dependence, cigarettes, with withdrawal (3) Sedative, hypnotic or anxiolytic dependence with withdrawal, uncomplicated Status: Acute (4) Opioid dependence on agonist therapy Status: Acute (5) Cocaine dependence, uncomplicated Status: Acute (6) Methadone maintenance therapy patient Status: Chronic (7) Cannabis dependence, uncomplicated Status: Acute (8) History of seizures Status: Chronic - AMA Did Patient Leave Against Medical Advice: No
== END 2017-11-12 07:43 | disposition home or self-care (01) | DRG 773 ==
LOC: YASAS 12:04 → Y3N 16:43
PROVIDERS: ADMIT Surgery; ATTEND Surgery
PROC: HZ2ZZZZ Detoxification Services for Substance Abuse Treatment (ICD-10-PCS; principal; 2017-11-08)
DX: F13.230 Sedative, hypnotic or anxiolytic dependence with withdrawal, uncomplicated (principal); F11.20 Opioid dependence, uncomplicated; F14.20 Cocaine dependence, uncomplicated; F12.20 Cannabis dependence, uncomplicated; F17.213 Nicotine dependence, cigarettes, with withdrawal; F19.24 Other psychoactive substance dependence with psychoactive substance-induced mood disorder; G47.00 Insomnia, unspecified; Z86.69 Personal history of other diseases of the nervous system and sense organs
CPT/HCPCS: 36415; 80053; 81003; 81015; 85027; 86593; 93005; 93010

== ENCOUNTER 2018-01-16 16:04 | Inpatient (IN) | payer OTHER ==
[2018-01-16 17:02] VITALS: BMI 25.8
--- NOTE | 2018-01-16 20:18 | HP ---
CIWA Score - CIWA Score Nausea/Vomitin (vomiting x 2) Muscle Tremors: 3 Anxiety: 3 Agitation: 2 Paroxysmal Sweats: 1-Minimal Palms Moist Orientation: 0-Oriented Tacttile Disturbances: 0-None Auditory Disturbances: 0-None Visual Disturbances: 0-None Headache: 3-Moderate CIWA-Ar Total Score: 15 Admission [facility] Chief Complaint: Benzodiazepine withdrawal symptoms Allergies/Adverse Reactions: Allergies Allergy/AdvReac Type Severity Reaction Status Date / Time No Known Allergies Allergy Verified 01/16/18 18:32 History of Present Illness: 27 years old male with a year history of benzodiazepine withdrawal symptoms is seeking admission to detox. Patient was in detox 11/08/2017-11/12/2017 at [facility]. He reports insignificant period of sobriety. He has medic al history of depression, anemia, seizures and anxiety and denies suicidal ideation at this time. Patient is on Methadone 320mg tablet oral at [facility]. LDM was today, 01/16/2018. Dose is yet to be verified by the nurse. Exam Limitations: No Limitations - Ebola screening Have you traveled outside of the country in the last 21 days: No (N) Have you had contact with anyone from an Ebola affected area: No Have you been sick,other than usual withdrawal symptoms: No Do you have a fever: No - Review of Systems Constitutional: Chills, Loss of Appetite, Malaise, Changes in sleep EENT: reports: No Symptoms Reported Respiratory: reports: No Symptoms reported Cardiac: reports: No Symptoms Reported GI: reports: Poor Appetite, Poor Fluid Intake, Vomiting, Abdominal cramping : reports: No Symptoms Reported Musculoskeletal: reports: Back Pain, Muscle Pain Integumentary: reports: Dryness Neuro: reports: Tingling, Tremors Endocrine: reports: No Symptoms Reported Hematology: reports: No Symptoms Reported Psychiatric: reports: Mood/Affect Appropiate, Orientated x3, Agitated, Anxious Other Systems: Reviewed and Negative Patient History - Patient Medical History Hx Anemia: Yes (N ot on medication) Hx Asthma: No Hx Chronic Obstructive Pulmonary Disease (COPD): No Hx Cancer: No Hx Cardiac Disorders: No Hx Congestive Heart Failure: No Hx Hypercholesterolemia: No Hx Pacemaker: No HX Cerebrovascular Accident: No Hx Seizures: Yes (Due to Benzodiazepine withdrawal; last episode: approx. 03/ 2018.) Hx Dementia: No Hx Diabetes: No Hx Gastrointestinal Disorders: No Hx Liver Disease: No Hx Genitourinary Disorders: No Hx Sexually Transmitted Disorders: No Hx Renal Disease (ESRD): No Hx Thyroid Disease: No Hx Human Immunodeficiency Virus (HIV): No ( NEGATIVE 2018) Hx Hepatitis C: No (Patient denies) Hx Depression: Yes (No meds.) Hx Suicide Attempt: No (PATIENT DENIES CURRENT SI / HI.) Hx Bipolar Disorder: No Hx Schizophrenia: No Other Medical History: Anxiety - Not on medication - Patient Surgical History Past Surgical History: No Other Surgical History: DENIES. - PPD History Previous Implant?: Yes Documented Results: Negative w/proof Date: 02/16/17 Results: 0 MM PPD to be Administered?: Yes - Reproductive History Patient is a Female of Child Bearing Age (11 -55 yrs old): No (Male) - Smoking Cessation Smoking history: Current every day smoker Have you smoked in the past 12 months: Yes Aproximately how many cigarettes per day: 20 Cigars Per Day: 0 Hx Chewing Tobacco Use: No Initiated information on smoking cessation: Yes 'Breaking Loose' booklet given: 01/16/18 - Substance & Tx. History Hx Alcohol Use: No Hx Substance Use: Yes Substance Use Type: Prescribed Hx Substance Use Treatment: Yes ([facility]) - Substances Abused Alprazolam (Xanax) Route: Oral Frequency: Daily Amount used: 8mg Age of first use: 26 Date of Last Use: 01/16/18 Benzodiazepine (Klonopin) Frequency: Daily Amount used: 12mg Age of first use: 26 Date of Last Use: 01/16/18 Family Disease History - Family Disease History Family Disease History: Diabetes: Father (BLOOD CLOT, ), Brother, Heart Disease: Mother (, [place] Brother, Other: Father Admission Physical Exam BHS - Vital Signs Vital Signs: Vital Signs - 24 hr 01/16/18 17:00 Temperature 98.8 F Pulse Rate 92 H Respiratory 18 Rate Blood Pressure 123/75 - Physical General Appearance: Yes: Moderate Distress, Tremorous, Irritable, Anxious HEENTM: Yes: EOMI, Normal ENT Inspection, Normal Voice, QUIN Respiratory: Yes: Lungs Clear, Normal Breath Sounds, No Respiratory Distress Neck: Yes: Supple Breast: Yes: Breast Exam Deferred Cardiology: Yes: Regular Rhythm, Regular Rate Abdominal: Yes: Normal Bowel Sounds, Soft Genitourinary: Yes: Within Normal Limits Back: Yes: Normal Inspection Musculoskeletal: Yes: Back pain, Muscle Pain, Muscle weakness Extremities: Yes: Tremors 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 NML intact, Alert, Normal Mood/Affect Integumentary: Yes: Warm Lymphatic: Yes: Within Normal Limits - Diagnostic (1) Anemia Current Visit: Yes Status: Chronic Qualifiers: Anemia type: iron deficiency (2) Cannabis dependence, uncomplicated Current Visit: Yes Status: Chronic (3) Depression Current Visit: Yes Status: Chronic Qualifiers: Depression Type: unspecified Qualified Code(s): F32.9 - Major depressive disorder, single episode, unspecified (4) Hepatitis Current Visit: Yes Status: Chronic (5) Nicotine dependence Current Visit: Yes Status: Chronic Qualifiers: Nicotine product type: cigarettes Substance use status: uncomplicated Qualified Code(s): F17.210 - Nicotine dependence, cigarettes, uncomplicated (6) Sedative, hypnotic or anxiolytic dependence with withdrawal, uncomplicated Current Visit: Yes Status: Chronic (7) History of seizures Current Visit: Yes Status: Chronic Comment: Due to Withdrawal. (8) Methadone maintenance therapy patient Current Visit: Yes Status: Chronic Cleared for Admission [facility] - Detox or Rehab [facility] Level of Care: Medically Managed Detox Regimen/Protocol: Valium [facility] Breath Alcohol Content Breath Alcohol Content: 0 Urine Drug Screen - Results Drug Screen Negative: No Urine Drug Screen Results: THC-Marijuana, BAR-Barbiturates, BZO-Benzodiazepines , MTD-Methadone
[2018-01-16] MEDS ORDERED: MAGNESIUM CITRATE 300 ML BOTTLE PO PRN (20:41)
[2018-01-16] MEDS ORDERED: IBUPROFEN 400 MG TABLET (FP) PO PRN (20:41)
[2018-01-16] MEDS ORDERED: guaiFENesin/D-METHORPHAN HB 10 ML UNIT-DOSE CUPS PO PRN (20:41)
[2018-01-16] MEDS ORDERED: ACETAMINOPHEN 325 MG TABLET (FP) PO PRN (20:41)
[2018-01-16] MEDS ORDERED: MENTHOL/PHENOL 1 EACH UD MM PRN (20:41)
[2018-01-16] MEDS ORDERED: NICOTINE POLACRILEX 2 MG GUM BC PRN (20:41)
[2018-01-16] MEDS ORDERED: MAGNESIUM HYDROX 2400MG/30ML ORAL SUSPENSION 30 ML CUP PO PRN (20:41)
[2018-01-16] MEDS ORDERED: diazePAM 5 MG TABLET PO ONE (20:41)
[2018-01-16] MEDS ORDERED: LOPERAMIDE HCL 2 MG CAPSULE PO PRN (20:41)
[2018-01-16] MEDS ORDERED: MAG HYDROX/AL HYDROX/SIMETH 30 ML UNIT-DOSE CUP PO PRN (20:41)
[2018-01-16] MEDS ORDERED: P-EPHED 60MG/TRIPROLIDI 2.5MG TABLET PO PRN (20:41)
[2018-01-16] MEDS: THIAMINE HCL 100 MG TABLET (FP) PO SCH (22:23)
[2018-01-16] MEDS: diazePAM 5 MG TABLET PO SCH (22:23)
[2018-01-16] MEDS: MELATONIN 5 MG TABLETS PO PRN (22:23)
[2018-01-16 23:16] LABS: URINE APPEARANCE CLEAR; URINE BILIRUBIN NEGATIVE (<2.0 mg/dL); URINE COLOR DKYELLOW; URINE GLUCOSE (UA) NEGATIVE (NEGATIVE); URINE KETONE NEGATIVE (NEGATIVE); URINE LEUK ESTERASE TRACE (NEGATIVE); URINE NITRITE NEGATIVE (NEGATIVE); URINE PROTEIN NEGATIVE (NEGATIVE)
[2018-01-16 23:24] LABS: EPI CELLS RARE /HPF (FEW); URINE HYALINE CAST 2 /lpf; URINE MUCUS MANY
[2018-01-17] MEDS: diazePAM 5 MG TABLET PO SCH ×3 (06:32→22:13)
[2018-01-17] MEDS: METHADONE HCL 40 MG DISPERSABLE TABLET PO SCH (09:22)
[2018-01-17] MEDS ORDERED: NICOTINE 14 MG/24 HOURS TOPICAL PATCH TD SCH (10:00)
[2018-01-17 10:08] LABS: HEMATOCRIT 36.1 % (35.4-49); HEMOGLOBIN 11.5 GM/dL (11.7-16.9); MCH 26.3 pg (25.7-33.7); MCHC 31.7 g/dl (32.0-35.9); MEAN PLT VOLUME 8.8 fl (7.5-11.1); PLATELET COUNT 260 K/MM3 (134-434); RBC 4.35 M/mm3 (4.00-5.60); RDW 14.9 % (11.9-15.9)
[2018-01-17] MEDS: diazePAM 5 MG TABLET PO PRN ×3 (10:09→20:00)
[2018-01-17] MEDS: PRENATAL VITAMINS W/ FOLIC ACID TABLET (FP) PO SCH (10:09)
[2018-01-17 10:22] LABS: ALK PHOS 95 U/L (45-117); ANION GAP 6 MMOL/L (8-16); BILIRUBIN,TOTAL 0.3 mg/dL (0.2-1); BLOOD UREA NITROGEN 17 mg/dL (7-18); CALCIUM 8.1 mg/dL (8.5-10.1); CHLORIDE 109 mmol/L (98-107); CO2 28 mmol/L (21-32); CREATININE 0.6 mg/dL (0.55-1.3); GLUCOSE,RANDOM 103 mg/dL (74-106); POTASSIUM 4.3 mmol/L (3.5-5.1); SGOT/AST 25 U/L (15-37); SGPT/ALT 26 U/L (13-61); SODIUM 144 mmol/L (136-145); TOT PROT 6.6 g/dl (6.4-8.2)
--- NOTE | 2018-01-17 10:49 | PN ---
S CIWA - CIWA Score Nausea/Vomitin Muscle Tremors: 4-Moderate,w/Arms Extend Anxiety: 4-Mod. Anxious/Guarded Agitation: 4-Moderately Restless Paroxysmal Sweats: 3 Orientation: 0-Oriented Tacttile Disturbances: 0-None Auditory Disturbances: 0-None Visual Disturbances: 0-None Headache: 0-None Present CIWA-Ar Total Score: 17 BHS Progress Note (SOAP) Subjective: Tremor, stomach cramps, chills, muscle pain Objective: 01/17/18 10:42 Last Vital Signs Temp Pulse Resp BP Pulse Ox 96.7 F L 69 18 102/60 01/17/18 09:04 01/17/18 09:04 01/17/18 09:04 01/17/18 09:04 Laboratory Tests 01/16/18 01/17/18 01/17/18 22:00 06:30 06:30 WBC 6.0 RBC 4.35 Hgb 11.5 L Hct 36.1 MCV 83.0 MCH 26.3 MCHC 31.7 L RDW 14.9 Plt Count 260 D MPV 8.8 Sodium 144 Potassium 4.3 Chloride 109 H Carbon Dioxide 28 Anion Gap 6 L BUN 17 Creatinine 0.6 Creat Clearance w eGFR > 60 Random Glucose 103 Calcium 8.1 L Total Bilirubin 0.3 AST 25 ALT 26 Alkaline Phosphatase 95 Total Protein 6.6 Albumin 3.0 L Urine Color Dkyellow Urine Appearance Clear Urine pH 5.0 Ur Specific [place] 1.030 Urine Protein Negative Urine Glucose (UA) Negative Urine Ketones Negative Urine Blood Negative Urine Nitrite Negative Urine Bilirubin Negative Urine Urobilinogen 2.0 Ur Leukocyte Esterase Trace Urine WBC (Auto) 1 Urine RBC (Auto) 8 Ur Epithelial Cells Rare Hyaline Casts 2 Urine Mucus Many Labs reviewed Assessment: 01/17/18 10:49 Withdrawal symptoms Plan: Continue detox Encouraged PO water intake
[2018-01-17] MEDS: NICOTINE 21 MG/24 HOURS TOPICAL PATCH TD SCH (11:42)
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
--- NOTE | 2018-01-17 16:07 | EKG ---
Test Reason : Blood Pressure : / mmHG Vent. Rate : 081 BPM Atrial Rate : 081 BPM P-R Int : 122 ms QRS Dur : 080 ms QT Int : 396 ms P-R-T Axes : 042 037 028 degrees QTc Int : 460 ms NORMAL SINUS RHYTHM NORMAL ECG WHEN COMPARED WITH ECG OF 08-NOV-2017 17:43, NO SIGNIFICANT CHANGE WAS FOUND Confirmed by MD SONAM, THOMAS ([id number]) on 01/17/2018 4:06:50 PM Referred By: Confirmed By:THOMAS MASTERS MD
[2018-01-17] MEDS: THIAMINE HCL 100 MG TABLET (FP) PO SCH (22:13)
[2018-01-17] MEDS: MELATONIN 5 MG TABLETS PO PRN (22:14)
[2018-01-18] MEDS: METHADONE HCL 40 MG DISPERSABLE TABLET PO SCH (05:41)
[2018-01-18] MEDS: diazePAM 5 MG TABLET PO PRN ×4 (06:57→20:35)
[2018-01-18] MEDS: NICOTINE 21 MG/24 HOURS TOPICAL PATCH TD SCH (10:02)
[2018-01-18] MEDS: diazePAM 5 MG TABLET PO SCH ×2 (10:03→22:05)
[2018-01-18] MEDS: PRENATAL VITAMINS W/ FOLIC ACID TABLET (FP) PO SCH (10:03)
--- NOTE | 2018-01-18 13:54 | PN ---
[facility] CIWA - CIWA Score Nausea/Vomitin-Mild Nausea/No Vomiting Muscle Tremors: 3 Anxiety: 4-Mod. Anxious/Guarded Agitation: 3 Paroxysmal Sweats: 2 Orientation: 0-Oriented Tacttile Disturbances: 0-None Auditory Disturbances: 0-None Visual Disturbances: 0-None Headache: 1-Very Mild CIWA-Ar Total Score: 14 S Progress Note (SOAP) Subjective: Feeling tired, sweating, chills, anxious Objective: 01/18/18 13:54 Last Vital Signs Temp Pulse Resp BP Pulse Ox 98.4 F 76 20 113/63 01/18/18 13:34 01/18/18 13:34 01/18/18 13:34 01/18/18 13:34 Laboratory Tests 01/16/18 01/17/18 01/17/18 22:00 06:30 06:30 WBC 6.0 RBC 4.35 Hgb 11.5 L Hct 36.1 MCV 83.0 MCH 26.3 MCHC 31.7 L RDW 14.9 Plt Count 260 D MPV 8.8 Sodium 144 Potassium 4.3 Chloride 109 H Carbon Dioxide 28 Anion Gap 6 L BUN 17 Creatinine 0.6 Creat Clearance w eGFR > 60 Random Glucose 103 Calcium 8.1 L Total Bilirubin 0.3 AST 25 ALT 26 Alkaline Phosphatase 95 Total Protein 6.6 Albumin 3.0 L Urine Color Dkyellow Urine Appearance Clear Urine pH 5.0 Ur Specific [place] 1.030 Urine Protein Negative Urine Glucose (UA) Negative Urine Ketones Negative Urine Blood Negative Urine Nitrite Negative Urine Bilirubin Negative Urine Urobilinogen 2.0 Ur Leukocyte Esterase Trace Urine WBC (Auto) 1 Urine RBC (Auto) 8 Ur Epithelial Cells Rare Hyaline Casts 2 Urine Mucus Many RPR Titer 01/17/18 06:30 WBC RBC Hgb Hct MCV MCH MCHC RDW Plt Count MPV Sodium Potassium Chloride Carbon Dioxide Anion Gap BUN Creatinine Creat Clearance w eGFR Random Glucose Calcium Total Bilirubin AST ALT Alkaline Phosphatase Total Protein Albumin Urine Color Urine Appearance Urine pH Ur Specific [place] Urine Protein Urine Glucose (UA) Urine Ketones Urine Blood Urine Nitrite Urine Bilirubin Urine Urobilinogen Ur Leukocyte Esterase Urine WBC (Auto) Urine RBC (Auto) Ur Epithelial Cells Hyaline Casts Urine Mucus RPR Titer Nonreactive Labs reviewed Assessment: 01/18/18 13:54 Withdrawal symptoms Plan: Continue detox Encouraged PO water intake
[2018-01-18] MEDS: THIAMINE HCL 100 MG TABLET (FP) PO SCH (22:05)
[2018-01-18] MEDS: MELATONIN 5 MG TABLETS PO PRN (22:06)
[2018-01-19] MEDS: METHADONE HCL 40 MG DISPERSABLE TABLET PO SCH (05:57)
[2018-01-19] MEDS: diazePAM 5 MG TABLET PO PRN ×4 (07:15→18:59)
[2018-01-19] MEDS: NICOTINE 21 MG/24 HOURS TOPICAL PATCH TD SCH (10:16)
[2018-01-19] MEDS: PRENATAL VITAMINS W/ FOLIC ACID TABLET (FP) PO SCH (10:16)
[2018-01-19] MEDS: diazePAM 5 MG TABLET PO SCH ×2 (10:16→22:09)
--- NOTE | 2018-01-19 11:14 | PN ---
[facility] Progress Note (SOAP) Subjective: Tremor, anxious, interrupted sleep. Patient is scheduled for discharge tomorrow and requested to leave at 7am. Objective: 01/19/18 11:11 Last Vital Signs Temp Pulse Resp BP Pulse Ox 98.8 F 73 18 115/60 01/19/18 09:23 01/19/18 09:23 01/19/18 09:23 01/19/18 09:23 Laboratory Tests 01/16/18 01/17/18 01/17/18 22:00 06:30 06:30 WBC 6.0 RBC 4.35 Hgb 11.5 L Hct 36.1 MCV 83.0 MCH 26.3 MCHC 31.7 L RDW 14.9 Plt Count 260 D MPV 8.8 Sodium 144 Potassium 4.3 Chloride 109 H Carbon Dioxide 28 Anion Gap 6 L BUN 17 Creatinine 0.6 Creat Clearance w eGFR > 60 Random Glucose 103 Calcium 8.1 L Total Bilirubin 0.3 AST 25 ALT 26 Alkaline Phosphatase 95 Total Protein 6.6 Albumin 3.0 L Urine Color Dkyellow Urine Appearance Clear Urine pH 5.0 Ur Specific [place] 1.030 Urine Protein Negative Urine Glucose (UA) Negative Urine Ketones Negative Urine Blood Negative Urine Nitrite Negative Urine Bilirubin Negative Urine Urobilinogen 2.0 Ur Leukocyte Esterase Trace Urine WBC (Auto) 1 Urine RBC (Auto) 8 Ur Epithelial Cells Rare Hyaline Casts 2 Urine Mucus Many RPR Titer 01/17/18 06:30 WBC RBC Hgb Hct MCV MCH MCHC RDW Plt Count MPV Sodium Potassium Chloride Carbon Dioxide Anion Gap BUN Creatinine Creat Clearance w eGFR Random Glucose Calcium Total Bilirubin AST ALT Alkaline Phosphatase Total Protein Albumin Urine Color Urine Appearance Urine pH Ur Specific [place] Urine Protein Urine Glucose (UA) Urine Ketones Urine Blood Urine Nitrite Urine Bilirubin Urine Urobilinogen Ur Leukocyte Esterase Urine WBC (Auto) Urine RBC (Auto) Ur Epithelial Cells Hyaline Casts Urine Mucus RPR Titer Nonreactive Labs reviewed Assessment: 01/19/18 11:13 Withdrawal symptoms Plan: Continue detox Encouraged PO water intake
[2018-01-19] MEDS: MELATONIN 5 MG TABLETS PO PRN (22:09)
[2018-01-19] MEDS: THIAMINE HCL 100 MG TABLET (FP) PO SCH (22:09)
[2018-01-20] MEDS: METHADONE HCL 40 MG DISPERSABLE TABLET PO SCH (06:09)
[2018-01-20 06:25] VITALS: BP 105/63; PULSE 73; TEMP 97.5
[2018-01-20] MEDS ORDERED: diazePAM 5 MG TABLET PO SCH (10:00)
--- NOTE | 2018-01-20 15:22 | DS ---
[facility] Detox Discharge Summary Admission Date: 01/16/18 Discharge Date: 01/20/18 - History Present History: Sedative Dependence, MMTP Pertinent Past History: Anemia Seizure disorder Nicotine dependence Sedative dependence Opioid dependence on agonist - Physical Exam Results Vital Signs: Vital Signs Temperature 97.5 F L 01/20/18 06:24 Pulse Rate 73 01/20/18 06:24 Respiratory Rate 16 01/20/18 06:24 Blood Pressure 105/63 01/20/18 06:24 O2 Sat by Pulse Oximetry (%) Pertinent Admission Physical Exam Findings: Withdrawal symptoms Laboratory Tests 01/16/18 01/17/18 01/17/18 22:00 06:30 06:30 WBC 6.0 RBC 4.35 Hgb 11.5 L Hct 36.1 MCV 83.0 MCH 26.3 MCHC 31.7 L RDW 14.9 Plt Count 260 D MPV 8.8 Sodium 144 Potassium 4.3 Chloride 109 H Carbon Dioxide 28 Anion Gap 6 L BUN 17 Creatinine 0.6 Creat Clearance w eGFR > 60 Random Glucose 103 Calcium 8.1 L Total Bilirubin 0.3 AST 25 ALT 26 Alkaline Phosphatase 95 Total Protein 6.6 Albumin 3.0 L Urine Color Dkyellow Urine Appearance Clear Urine pH 5.0 Ur Specific [place] 1.030 Urine Protein Negative Urine Glucose (UA) Negative Urine Ketones Negative Urine Blood Negative Urine Nitrite Negative Urine Bilirubin Negative Urine Urobilinogen 2.0 Ur Leukocyte Esterase Trace Urine WBC (Auto) 1 Urine RBC (Auto) 8 Ur Epithelial Cells Rare Hyaline Casts 2 Urine Mucus Many RPR Titer 01/17/18 06:30 WBC RBC Hgb Hct MCV MCH MCHC RDW Plt Count MPV Sodium Potassium Chloride Carbon Dioxide Anion Gap BUN Creatinine Creat Clearance w eGFR Random Glucose Calcium Total Bilirubin AST ALT Alkaline Phosphatase Total Protein Albumin Urine Color Urine Appearance Urine pH Ur Specific [place] Urine Protein Urine Glucose (UA) Urine Ketones Urine Blood Urine Nitrite Urine Bilirubin Urine Urobilinogen Ur Leukocyte Esterase Urine WBC (Auto) Urine RBC (Auto) Ur Epithelial Cells Hyaline Casts Urine Mucus RPR Titer Nonreactive Labs reviewed - Treatment Hospital Course: Detox Protocol Followed, Detoxed Safely, Responded well, Discharged Condition Good - Medication Discharge Medications: Ambulatory Orders Methadone [Dolophine -] 320 mg PO DAILY 01/16/18 - Diagnosis (1) Anemia Status: Chronic Qualifiers: Anemia type: iron deficiency (2) Depression Status: Chronic Qualifiers: Depression Type: unspecified Qualified Code(s): F32.9 - Major depressive disorder, single episode, unspecified (3) History of seizures Status: Chronic (4) Methadone maintenance therapy patient Status: Chronic (5) Nicotine dependence Status: Acute Qualifiers: Nicotine product type: cigarettes Substance use status: uncomplicated Qualified Code(s): F17.210 - Nicotine dependence, cigarettes, uncomplicated (6) Sedative, hypnotic or anxiolytic dependence with withdrawal, uncomplicated Status: Chronic (7) Anxiety Status: Chronic - AMA Did Patient Leave Against Medical Advice: No (F/U with your PCP within 1-2 weeks )
== END 2018-01-20 06:55 | disposition home or self-care (01) | DRG 773 ==
LOC: YASAS 16:04 → Y3N 18:47
PROC: HZ2ZZZZ Detoxification Services for Substance Abuse Treatment (ICD-10-PCS; principal; 2018-01-16)
DX: F13.230 Sedative, hypnotic or anxiolytic dependence with withdrawal, uncomplicated (principal); F12.20 Cannabis dependence, uncomplicated; F11.20 Opioid dependence, uncomplicated; F17.210 Nicotine dependence, cigarettes, uncomplicated; F19.24 Other psychoactive substance dependence with psychoactive substance-induced mood disorder; F41.9 Anxiety disorder, unspecified; F32.9 Major depressive disorder, single episode, unspecified; D50.9 Iron deficiency anemia, unspecified; Z86.69 Personal history of other diseases of the nervous system and sense organs
CPT/HCPCS: 36415; 80053; 81003; 81015; 85027; 86593; 93005; 93010

== ENCOUNTER 2018-03-01 12:25 | Inpatient (IN) | payer OTHER ==
[2018-03-01 13:52] VITALS: BMI 25.7
--- NOTE | 2018-03-01 15:01 | HP ---
CIWA Score Nausea/Vomitin Muscle Tremors: 2 Anxiety: 2 Agitation: 2 Paroxysmal Sweats: 1-Minimal Palms Moist Orientation: 0-Oriented Tacttile Disturbances: 1-Very Mild Itch/Numbness Auditory Disturbances: 1-Very Mild Visual Disturbances: 0-None Headache: 2-Mild CIWA-Ar Total Score: 13 - Admission Criteria [facility] Guidelines: Admission for Medically Managed Detox: Requires at least one of the followin. CIWA greater than 12 2. Seizures within the past 24 hours 3. Delirium tremens within the past 24 hours 4. Hallucinations within the past 24 hours 5. Acute intervention needed for co occurring medical disorder 6. Acute intervention needed for co occurring psychiatric disorder 7. Severe withdrawal that cannot be handled at a lower level of care (continued vomiting, continued diarrhea, abnormal vital signs) requiring intravenous medication and/or fluids 8. Patient presents the following: CIWA greater than 12 Admission Criteria Met: Admission criteria met Admission ROS S - [facility] Chief Complaint: need help to stop using xanax,klonopin,marijuana,cocaine,mmtp 320 mgs/day,last medicated today, seizure withdrawal last 11/05 nicotine dependence weight loss anxiety longest period of sobriety 6 months Allergies/Adverse Reactions: Allergies Allergy/AdvReac Type Severity Reaction Status Date / Time No Known Allergies Allergy Verified 03/01/18 14:52 History of Present Illness: this 27 years old male with xanax,klonopin,alcohol,marijuana dependence,seeking detox as mentions,withdrawal seizure last Exam Limitations: No Limitations - Ebola screening Have you traveled outside of the country in the last 21 days: No Have you had contact with anyone from an Ebola affected area: No Have you been sick,other than usual withdrawal symptoms: No Do you have a fever: No - Review of Systems Constitutional: Loss of Appetite, Malaise, Night Sweats, Changes in sleep, Weakness, Unintentional Wgt. Loss EENT: reports: Nose Congestion Respiratory: reports: No Symptoms reported Cardiac: reports: No Symptoms Reported GI: reports: Nausea, Poor Appetite, Abdominal cramping : reports: No Symptoms Reported Musculoskeletal: reports: Back Pain, Muscle Pain Integumentary: reports: Dryness Neuro: reports: Headache, Tremors Endocrine: reports: No Symptoms Reported Hematology: reports: No Symptoms Reported Psychiatric: reports: No Sypmtoms Reported, Judgement Intact, Mood/Affect Appropiate, Orientated x3, Anxious Other Systems: Reviewed and Negative Patient History - Patient Medical History Hx Anemia: Yes (N ot on medication) Hx Asthma: No Hx Chronic Obstructive Pulmonary Disease (COPD): No Hx Cancer: No Hx Cardiac Disorders: No Hx Congestive Heart Failure: No Hx Hypertension: No Hx Hypercholesterolemia: No Hx Pacemaker: No HX Cerebrovascular Accident: No Hx Seizures: Yes (Due to Benzodiazepine withdrawal; last episode: approx. 2017.) Hx Dementia: No Hx Diabetes: No Hx Gastrointestinal Disorders: No Hx Liver Disease: No Hx Genitourinary Disorders: No Hx Sexually Transmitted Disorders: No Hx Renal Disease (ESRD): No Hx Thyroid Disease: No Hx Human Immunodeficiency Virus (HIV): No ( NEGATIVE 2017) Hx Hepatitis C: No (Patient denies) Hx Depression: Yes (No meds.) Hx Suicide Attempt: No (PATIENT DENIES CURRENT SI / HI.) Hx Bipolar Disorder: No Hx Schizophrenia: No Other Medical History: no suicidal,no homicidal - Patient Surgical History Past Surgical History: No Hx Neurologic Surgery: No Hx Cataract Extraction: No Hx Cardiac Surgery: No Hx Lung Surgery: No Hx Breast Surgery: No Hx Breast Biopsy: No Hx Abdominal Surgery: No Hx Appendectomy: No Hx Cholecystectomy: No Hx Genitourinary Surgery: No Hx Section: No Hx Orthopedic Surgery: No Other Surgical History: DENIES. Anesthesia Reaction: No - PPD History Previous Implant?: Yes Documented Results: Negative w/o proof Implanted On Prior [facility] Admission?: Yes Date: 02/16/17 Results: 0 MM PPD to be Administered?: Yes - Smoking Cessation Smoking history: Current every day smoker Have you smoked in the past 12 months: Yes Aproximately how many cigarettes per day: 20 Cigars Per Day: 0 Hx Chewing Tobacco Use: No Initiated information on smoking cessation: Yes 'Breaking Loose' booklet given: 03/01/18 - Substance & Tx. History Hx Alcohol Use: No Hx Substance Use: Yes Substance Use Type: Cocaine, Marijuana, Tranquilizers Hx Substance Use Treatment: Yes ([facility] 01/16/18 to 01/20/18) - Substances Abused Marijuana/Hashish Route: Smoking Frequency: 3-6 times per week Amount used: 1 JOINT Age of first use: 16 Date of Last Use: 02/28/18 Cocaine Route: Injection Frequency: 1-2 times per week Amount used: 1 BAG Age of first use: 23 Date of Last Use: 02/26/18 XANAX OR KLONOPIN Route: Oral Frequency: Daily Amount used: 10MG OR 12MG Age of first use: 24 Date of Last Use: 02/28/18 Family Disease History - Family Disease History Family Disease History: Diabetes: Father (BLOOD CLOT, ), Brother, Heart Disease: Mother (, [place].), Brother, Other: Father Admission Physical Exam [facility] - Vital Signs Vital Signs: Vital Signs - 24 hr 03/01/18 13:47 Temperature 98.0 F Pulse Rate 89 Respiratory 18 Rate Blood Pressure 120/71 - Physical General Appearance: Yes: Moderate Distress, Tremorous, Sweating, Anxious HEENTM: Yes: Normal ENT Inspection, QUIN, Pharynx Normal Respiratory: Yes: Lungs Clear, Normal Breath Sounds, No Respiratory Distress Neck: Yes: Within Normal Limits, Supple, Trachea in good position Breast: Yes: Within Normal Limits Cardiology: Yes: Regular Rhythm, Regular Rate, S1, S2, Edema Abdominal: Yes: Within Normal Limits, Normal Bowel Sounds, Non Tender, Soft Genitourinary: Yes: Within Normal Limits Back: Yes: Muscle Spasm Musculoskeletal: Yes: Back pain, Muscle Pain Extremities: Yes: Tremors 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 (7) Methadone maintenance therapy patient Current Visit: No Status: Chronic Cleared for Admission [facility] - Detox or Rehab [facility] Level of Care: Medically Managed Detox Regimen/Protocol: Valium [facility] Breath Alcohol Content Breath Alcohol Content: 0 Urine Drug Screen - Results Drug Screen Negative: No Urine Drug Screen Results: THC-Marijuana, MET-Methamphetamine, BAR-Barbiturates , BZO-Benzodiazepines
[2018-03-01] MEDS ORDERED: LOPERAMIDE HCL 2 MG CAPSULE PO PRN (15:08)
[2018-03-01] MEDS ORDERED: MENTHOL/PHENOL 1 EACH UD MM PRN (15:08)
[2018-03-01] MEDS ORDERED: P-EPHED 60MG/TRIPROLIDI 2.5MG TABLET PO PRN (15:08)
[2018-03-01] MEDS ORDERED: MAGNESIUM HYDROX 2400MG/30ML ORAL SUSPENSION 30 ML CUP PO PRN (15:08)
[2018-03-01] MEDS ORDERED: MAG HYDROX/AL HYDROX/SIMETH 30 ML UNIT-DOSE CUP PO PRN (15:08)
[2018-03-01] MEDS ORDERED: IBUPROFEN 400 MG TABLET (FP) PO PRN (15:08)
[2018-03-01] MEDS ORDERED: ACETAMINOPHEN 325 MG TABLET (FP) PO PRN (15:08)
[2018-03-01] MEDS ORDERED: MAGNESIUM CITRATE 300 ML BOTTLE PO PRN (15:08)
[2018-03-01] MEDS ORDERED: guaiFENesin/D-METHORPHAN HB 10 ML UNIT-DOSE CUPS PO PRN (15:08)
[2018-03-01] MEDS ORDERED: NICOTINE POLACRILEX 2 MG GUM BUC PRN (15:21)
[2018-03-01] MEDS ORDERED: diazePAM 5 MG TABLET PO ONE (15:50)
[2018-03-01] MEDS: NICOTINE 21 MG/24 HOURS TOPICAL PATCH TD SCH (17:49)
[2018-03-01] MEDS: THIAMINE HCL 100 MG TABLET (FP) PO SCH (22:18)
[2018-03-01] MEDS: diazePAM 5 MG TABLET PO PRN (22:22)
[2018-03-01] MEDS: MELATONIN 5 MG TABLETS PO PRN (22:22)
[2018-03-01] MEDS: diazePAM 5 MG TABLET PO SCH (22:22)
[2018-03-02] MEDS: diazePAM 5 MG TABLET PO SCH ×3 (06:35→22:25)
[2018-03-02] MEDS: diazePAM 5 MG TABLET PO PRN ×3 (08:47→17:34)
[2018-03-02] MEDS ORDERED: METHADONE HCL 40 MG DISPERSABLE TABLET PO ONE (08:55)
[2018-03-02] MEDS: NICOTINE 21 MG/24 HOURS TOPICAL PATCH TD SCH (10:31)
[2018-03-02] MEDS: PRENATAL VITAMINS W/ FOLIC ACID TABLET (FP) PO SCH (10:32)
[2018-03-02 10:40] LABS: HEMATOCRIT 36.8 % (35.4-49); HEMOGLOBIN 11.5 GM/dL (11.7-16.9); MCH 25.6 pg (25.7-33.7); MCHC 31.3 g/dl (32.0-35.9); MEAN CELL VOLUME 81.7 fl (80-96); MEAN PLT VOLUME 8.6 fl (7.5-11.1); PLATELET COUNT 430 K/MM3 (134-434); RDW 14.6 % (11.9-15.9); WHITE BLOOD COUNT 9.7 K/mm3 (4.0-10.0)
[2018-03-02 12:05] LABS: ALBUMIN 3.6 g/dl (3.4-5.0); ALK PHOS 127 U/L (45-117); ANION GAP 9 MMOL/L (8-16); BILIRUBIN,TOTAL 0.2 mg/dL (0.2-1); BLOOD UREA NITROGEN 20 mg/dL (7-18); CALCIUM 9.3 mg/dL (8.5-10.1); CHLORIDE 106 mmol/L (98-107); CO2 27 mmol/L (21-32); CREATININE 0.8 mg/dL (0.55-1.3); GLUCOSE,RANDOM 78 mg/dL (74-106); POTASSIUM 4.5 mmol/L (3.5-5.1); SGOT/AST 21 U/L (15-37); SGPT/ALT 28 U/L (13-61); SODIUM 141 mmol/L (136-145); TOT PROT 8.1 g/dl (6.4-8.2)
--- NOTE | 2018-03-02 13:37 | PN ---
S CIWA - CIWA Score Nausea/Vomitin-No Nausea/No Vomiting Muscle Tremors: 4-Moderate,w/Arms Extend Anxiety: 4-Mod. Anxious/Guarded Agitation: 4-Moderately Restless Paroxysmal Sweats: 3 Orientation: 0-Oriented Tacttile Disturbances: 0-None Auditory Disturbances: 0-None Visual Disturbances: 0-None Headache: 0-None Present CIWA-Ar Total Score: 15 [facility] Progress Note (SOAP) Subjective: left foot pain sweats shakes agitation anxiety body aches Objective: 03/02/18 13:33 Vital Signs Temperature 99.7 F H 03/02/18 09:18 Pulse Rate 80 03/02/18 09:18 Respiratory Rate 18 03/02/18 09:18 Blood Pressure 128/60 03/02/18 09:18 O2 Sat by Pulse Oximetry (%) Laboratory Tests 03/02/18 03/02/18 03/02/18 06:00 06:00 06:00 WBC 9.7 RBC 4.50 Hgb 11.5 L Hct 36.8 MCV 81.7 MCH 25.6 L MCHC 31.3 L RDW 14.6 Plt Count 430 D MPV 8.6 Sodium 141 Potassium 4.5 Chloride 106 Carbon Dioxide 27 Anion Gap 9 BUN 20 H Creatinine 0.8 Creat Clearance w eGFR > 60 Random Glucose 78 Calcium 9.3 Total Bilirubin 0.2 AST 21 ALT 28 Alkaline Phosphatase 127 H Total Protein 8.1 Albumin 3.6 RPR Titer Nonreactive aaox3 ambulating no acute distress Assessment: 03/02/18 13:36 withdrawal sx Plan: continue detox increase fluids boone bandage for pain of left foot.
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
[2018-03-02] MEDS: IBUPROFEN 400 MG TABLET (FP) PO PRN (17:34)
[2018-03-02 19:08] LABS: URINE APPEARANCE TURBID; URINE BILIRUBIN NEGATIVE (<2.0 mg/dL); URINE COLOR YELLOW; URINE GLUCOSE (UA) NEGATIVE (NEGATIVE); URINE KETONE NEGATIVE (NEGATIVE); URINE LEUK ESTERASE TRACE (NEGATIVE); URINE NITRITE NEGATIVE (NEGATIVE); URINE PROTEIN NEGATIVE (NEGATIVE); URINE UROBILINOGEN NEGATIVE mg/dL (0.2-1.0)
[2018-03-02 19:15] LABS: URINE MUCUS MANY
[2018-03-02] MEDS: THIAMINE HCL 100 MG TABLET (FP) PO SCH (22:25)
[2018-03-02] MEDS: MELATONIN 5 MG TABLETS PO PRN (22:25)
[2018-03-03] MEDS: METHADONE HCL 40 MG DISPERSABLE TABLET PO SCH (05:32)
[2018-03-03] MEDS: diazePAM 5 MG TABLET PO PRN ×2 (05:51→13:33)
[2018-03-03] MEDS: IBUPROFEN 400 MG TABLET (FP) PO PRN (05:52)
[2018-03-03] MEDS: NICOTINE 21 MG/24 HOURS TOPICAL PATCH TD SCH (10:08)
[2018-03-03] MEDS: PRENATAL VITAMINS W/ FOLIC ACID TABLET (FP) PO SCH (10:08)
[2018-03-03] MEDS: diazePAM 5 MG TABLET PO SCH ×2 (10:08→22:13)
--- NOTE | 2018-03-03 11:19 | PN ---
[facility] CIWA - CIWA Score Nausea/Vomitin-No Nausea/No Vomiting Muscle Tremors: 3 Anxiety: 3 Agitation: 3 Paroxysmal Sweats: 3 Orientation: 0-Oriented Tacttile Disturbances: 0-None Auditory Disturbances: 0-None Visual Disturbances: 0-None Headache: 0-None Present CIWA-Ar Total Score: 12 S Progress Note (SOAP) Subjective: agitation sweats interrupted sleep body aches Objective: 03/03/18 11:18 Vital Signs Temperature 97.1 F L 03/03/18 09:39 Pulse Rate 66 03/03/18 09:39 Respiratory Rate 16 03/03/18 09:39 Blood Pressure 110/60 03/03/18 09:39 O2 Sat by Pulse Oximetry (%) Laboratory Tests 03/01/18 03/02/18 03/02/18 23:00 06:00 06:00 WBC 9.7 RBC 4.50 Hgb 11.5 L Hct 36.8 MCV 81.7 MCH 25.6 L MCHC 31.3 L RDW 14.6 Plt Count 430 D MPV 8.6 Sodium 141 Potassium 4.5 Chloride 106 Carbon Dioxide 27 Anion Gap 9 BUN 20 H Creatinine 0.8 Creat Clearance w eGFR > 60 Random Glucose 78 Calcium 9.3 Total Bilirubin 0.2 AST 21 ALT 28 Alkaline Phosphatase 127 H Total Protein 8.1 Albumin 3.6 Urine Color Yellow Urine Appearance Turbid Urine pH 5.0 Ur Specific [place] 1.031 Urine Protein Negative Urine Glucose (UA) Negative Urine Ketones Negative Urine Blood Negative Urine Nitrite Negative Urine Bilirubin Negative Urine Urobilinogen Negative Ur Leukocyte Esterase Trace Urine WBC (Auto) 120 Urine RBC (Auto) 6 Urine Mucus Many RPR Titer 03/02/18 06:00 WBC RBC Hgb Hct MCV MCH MCHC RDW Plt Count MPV Sodium Potassium Chloride Carbon Dioxide Anion Gap BUN Creatinine Creat Clearance w eGFR Random Glucose Calcium Total Bilirubin AST ALT Alkaline Phosphatase Total Protein Albumin Urine Color Urine Appearance Urine pH Ur Specific [place] Urine Protein Urine Glucose (UA) Urine Ketones Urine Blood Urine Nitrite Urine Bilirubin Urine Urobilinogen Ur Leukocyte Esterase Urine WBC (Auto) Urine RBC (Auto) Urine Mucus RPR Titer Nonreactive repeat u/a aaox3 ambulating no acute distress Assessment: 03/03/18 11:19 withdrawal sx Plan: continue detox increase fluids pending repeat u/a
[2018-03-03] MEDS: THIAMINE HCL 100 MG TABLET (FP) PO SCH (22:13)
[2018-03-03] MEDS: MELATONIN 5 MG TABLETS PO PRN (22:14)
[2018-03-04] MEDS: METHADONE HCL 40 MG DISPERSABLE TABLET PO SCH (05:31)
[2018-03-04] MEDS: diazePAM 5 MG TABLET PO PRN ×2 (05:34→13:54)
[2018-03-04] MEDS: diazePAM 5 MG TABLET PO SCH ×2 (10:13→22:23)
[2018-03-04] MEDS: PRENATAL VITAMINS W/ FOLIC ACID TABLET (FP) PO SCH (10:13)
[2018-03-04] MEDS: NICOTINE 21 MG/24 HOURS TOPICAL PATCH TD SCH (10:13)
[2018-03-04 10:40] LABS: URINE APPEARANCE CLEAR; URINE BILIRUBIN NEGATIVE (<2.0 mg/dL); URINE COLOR LTYELLOW; URINE GLUCOSE (UA) NEGATIVE (NEGATIVE); URINE KETONE NEGATIVE (NEGATIVE); URINE LEUK ESTERASE NEGATIVE (NEGATIVE); URINE NITRITE NEGATIVE (NEGATIVE); URINE PROTEIN NEGATIVE (NEGATIVE); URINE UROBILINOGEN NEGATIVE mg/dL (0.2-1.0)
--- NOTE | 2018-03-04 16:12 | PN ---
[facility] Progress Note (SOAP) Subjective: Pt states he is feeling fine- here on benzo detox protocol. Continue methadone O: Vital Signs - 24 hr 03/03/18 03/04/18 03/04/18 22:00 00:30 07:08 Temperature 98.2 F Pulse Rate 68 64 Respiratory 18 18 18 Rate Blood Pressure 125/57 L 105/46 L 03/04/18 03/04/18 09:55 14:32 Temperature 98.2 F 98.1 F Pulse Rate 73 69 Respiratory 18 18 Rate Blood Pressure 115/65 118/60 Laboratory Tests 03/01/18 03/02/18 03/02/18 23:00 06:00 06:00 WBC 9.7 RBC 4.50 Hgb 11.5 L Hct 36.8 MCV 81.7 MCH 25.6 L MCHC 31.3 L RDW 14.6 Plt Count 430 D MPV 8.6 Sodium 141 Potassium 4.5 Chloride 106 Carbon Dioxide 27 Anion Gap 9 BUN 20 H Creatinine 0.8 Creat Clearance w eGFR > 60 Random Glucose 78 Calcium 9.3 Total Bilirubin 0.2 AST 21 ALT 28 Alkaline Phosphatase 127 H Total Protein 8.1 Albumin 3.6 Urine Color Yellow Urine Appearance Turbid Urine pH 5.0 Ur Specific [place] 1.031 Urine Protein Negative Urine Glucose (UA) Negative Urine Ketones Negative Urine Blood Negative Urine Nitrite Negative Urine Bilirubin Negative Urine Urobilinogen Negative Ur Leukocyte Esterase Trace Urine WBC (Auto) 120 Urine RBC (Auto) 6 Urine Mucus Many RPR Titer 03/02/18 03/04/18 06:00 07:40 WBC RBC Hgb Hct MCV MCH MCHC RDW Plt Count MPV Sodium Potassium Chloride Carbon Dioxide Anion Gap BUN Creatinine Creat Clearance w eGFR Random Glucose Calcium Total Bilirubin AST ALT Alkaline Phosphatase Total Protein Albumin Urine Color Ltyellow Urine Appearance Clear Urine pH 6.0 Ur Specific [place] 1.012 Urine Protein Negative Urine Glucose (UA) Negative Urine Ketones Negative Urine Blood 1+ H Urine Nitrite Negative Urine Bilirubin Negative Urine Urobilinogen Negative Ur Leukocyte Esterase Negative Urine WBC (Auto) 1 Urine RBC (Auto) 1 Urine Mucus RPR Titer Nonreactive a/p continue valium detox protocol, on methadone 320mg/day- without evidence of sedation
[2018-03-04] MEDS: IBUPROFEN 400 MG TABLET (FP) PO PRN (18:26)
[2018-03-04] MEDS: THIAMINE HCL 100 MG TABLET (FP) PO SCH (22:22)
[2018-03-04] MEDS: MELATONIN 5 MG TABLETS PO PRN (22:23)
[2018-03-05] MEDS: METHADONE HCL 40 MG DISPERSABLE TABLET PO SCH (07:05)
--- NOTE | 2018-03-05 08:44 | DS ---
[facility] Detox Discharge Summary Admission Date: 03/01/18 Discharge Date: 03/05/18 - History Present History: Sedative Dependence - Physical Exam Results Vital Signs: Vital Signs Temperature 97.7 F 03/05/18 04:00 Pulse Rate 89 03/05/18 04:00 Respiratory Rate 18 03/05/18 04:00 Blood Pressure 142/80 03/05/18 04:00 O2 Sat by Pulse Oximetry (%) - Treatment Hospital Course: Detox Protocol Followed, Detoxed Safely, Responded well, Discharged Condition Good, Rehab Referral Accepted - Medication Discharge Medications: Ambulatory Orders NK [No Known Home Medication] 03/01/18 - AMA Did Patient Leave Against Medical Advice: No
[2018-03-05] MEDS ORDERED: diazePAM 5 MG TABLET PO SCH (10:00)
[2018-03-05] MEDS: PRENATAL VITAMINS W/ FOLIC ACID TABLET (FP) PO SCH (10:06)
[2018-03-05] MEDS: NICOTINE 21 MG/24 HOURS TOPICAL PATCH TD SCH (10:06)
[2018-03-05] MEDS: IBUPROFEN 400 MG TABLET (FP) PO PRN ×2 (10:08→22:14)
--- NOTE | 2018-03-05 11:43 | PN ---
[facility] Progress Note (SOAP) Subjective: 27 years old male admitted on 03/01/18 for benzo withdrawal stabilization stated that feeling anxious and unease ap 92-100 moist skin restlessness reported that he wants to be clean from benzo but fear and worry patient continue presenting benzo withdrawal sx of anxiety restlessness headaches rapid pulse poor concentration pacing in room Objective: 03/05/18 11:43 Vital Signs Temperature 98.2 F 03/05/18 10:55 Pulse Rate 95 H 03/05/18 10:55 Respiratory Rate 18 03/05/18 10:55 Blood Pressure 126/71 03/05/18 10:55 O2 Sat by Pulse Oximetry (%) Laboratory Last Values WBC 9.7 K/mm3 (4.0-10.0) 03/02/18 06:00 RBC 4.50 M/mm3 (4.00-5.60) 03/02/18 06:00 Hgb 11.5 GM/dL (11.7-16.9) L 03/02/18 06:00 Hct 36.8 % (35.4-49) 03/02/18 06:00 MCV 81.7 fl (80-96) 03/02/18 06:00 MCH 25.6 pg (25.7-33.7) L 03/02/18 06:00 MCHC 31.3 g/dl (32.0-35.9) L 03/02/18 06:00 RDW 14.6 % (11.9-15.9) 03/02/18 06:00 Plt Count 430 K/MM3 (134-434) D 03/02/18 06:00 MPV 8.6 fl (7.5-11.1) 03/02/18 06:00 Sodium 141 mmol/L (136-145) 03/02/18 06:00 Potassium 4.5 mmol/L (3.5-5.1) 03/02/18 06:00 Chloride 106 mmol/L (98-107) 03/02/18 06:00 Carbon Dioxide 27 mmol/L (21-32) 03/02/18 06:00 Anion Gap 9 MMOL/L (8-16) 03/02/18 06:00 BUN 20 mg/dL (7-18) H 03/02/18 06:00 Creatinine 0.8 mg/dL (0.55-1.3) 03/02/18 06:00 Creat Clearance w eGFR > 60 (>60) 03/02/18 06:00 Random Glucose 78 mg/dL (74-106) 03/02/18 06:00 Calcium 9.3 mg/dL (8.5-10.1) 03/02/18 06:00 Total Bilirubin 0.2 mg/dL (0.2-1) 03/02/18 06:00 AST 21 U/L (15-37) 03/02/18 06:00 ALT 28 U/L (13-61) 03/02/18 06:00 Alkaline Phosphatase 127 U/L (45-117) H 03/02/18 06:00 Total Protein 8.1 g/dl (6.4-8.2) 03/02/18 06:00 Albumin 3.6 g/dl (3.4-5.0) 03/02/18 06:00 Urine Color Ltyellow 03/04/18 07:40 Urine Appearance Clear 03/04/18 07:40 Urine pH 6.0 (5.0-8.0) 03/04/18 07:40 Ur Specific [place] 1.012 (1.010-1.035) 03/04/18 07:40 Urine Protein Negative (NEGATIVE) 03/04/18 07:40 Urine Glucose (UA) Negative (NEGATIVE) 03/04/18 07:40 Urine Ketones Negative (NEGATIVE) 03/04/18 07:40 Urine Blood 1+ (NEGATIVE) H 03/04/18 07:40 Urine Nitrite Negative (NEGATIVE) 03/04/18 07:40 Urine Bilirubin Negative (<2.0 mg/dL) 03/04/18 07:40 Urine Urobilinogen Negative mg/dL (0.2-1.0) 03/04/18 07:40 Ur Leukocyte Esterase Negative (NEGATIVE) 03/04/18 07:40 Urine WBC (Auto) 1 /hpf (3-5) 03/04/18 07:40 Urine RBC (Auto) 1 /hpf (0-3) 03/04/18 07:40 Urine Mucus Many 03/01/18 23:00 RPR Titer Nonreactive (NONREACTIVE) 03/02/18 06:00 lab noted Assessment: 03/05/18 11:44 mild benzo withdrawal sx see above Plan: continue benzo supervised detox
[2018-03-05] MEDS: THIAMINE HCL 100 MG TABLET (FP) PO SCH (22:14)
[2018-03-05] MEDS: MELATONIN 5 MG TABLETS PO PRN (22:15)
[2018-03-06] MEDS: METHADONE HCL 40 MG DISPERSABLE TABLET PO SCH (05:27)
[2018-03-06 09:07] VITALS: BP 109/65; PULSE 85; TEMP 98.8
--- NOTE | 2018-03-06 10:07 | DS ---
[facility] Detox Discharge Summary Admission Date: 03/01/18 Discharge Date: 03/06/18 - History Present History: Alcohol Dependence, Cannabis Dependence, Cocaine Dependence, Opioid Dependence, Sedative Dependence - Physical Exam Results Vital Signs: Vital Signs Temperature 98.8 F 03/06/18 09:07 Pulse Rate 85 03/06/18 09:07 Respiratory Rate 18 03/06/18 09:07 Blood Pressure 109/65 03/06/18 09:07 O2 Sat by Pulse Oximetry (%) - Treatment Hospital Course: Detox Protocol Followed, Detoxed Safely, Responded well, Discharged Condition Good, Rehab Referral Accepted - Medication Discharge Medications: Ambulatory Orders NK [No Known Home Medication] 03/01/18 - Diagnosis (1) Cannabis dependence, uncomplicated Current Visit: Yes Status: Chronic (2) Cocaine dependence, uncomplicated Current Visit: Yes Status: Chronic (3) Cough Current Visit: No Status: Acute (4) Dehydration Current Visit: Yes Status: Acute (5) Insomnia Current Visit: No Status: Acute Qualifiers: Insomnia type: unspecified Qualified Code(s): G47.00 - Insomnia, unspecified (6) Nicotine dependence Current Visit: Yes Status: Chronic Qualifiers: Nicotine product type: cigarettes Substance use status: uncomplicated Qualified Code(s): F17.210 - Nicotine dependence, cigarettes, uncomplicated (7) Opioid dependence on agonist therapy Current Visit: No Status: Acute (8) Substance induced mood disorder Current Visit: No Status: Acute (9) URI (upper respiratory infection) Current Visit: No Status: Acute (10) Anemia Current Visit: No Status: Chronic Qualifiers: Anemia type: iron deficiency (11) Anxiety Current Visit: No Status: Chronic (12) Cocaine dependence Current Visit: No Status: Chronic Qualifiers: Substance use status: uncomplicated Qualified Code(s): F14.20 - Cocaine dependence, uncomplicated (13) Depression Current Visit: No Status: Chronic Qualifiers: Depression Type: unspecified Qualified Code(s): F32.9 - Major depressive disorder, single episode, unspecified (14) Hepatitis Current Visit: No Status: Chronic (15) History of seizures Current Visit: No Status: Chronic (16) Methadone maintenance therapy patient Current Visit: Yes Status: Chronic (17) Sedative, hypnotic or anxiolytic dependence with withdrawal, uncomplicated Current Visit: Yes Status: Chronic - AMA Did Patient Leave Against Medical Advice: No (rehab at [facility])
[2018-03-06] MEDS: NICOTINE 21 MG/24 HOURS TOPICAL PATCH TD SCH (10:40)
[2018-03-06] MEDS: PRENATAL VITAMINS W/ FOLIC ACID TABLET (FP) PO SCH (10:40)
[2018-03-06] MEDS: IBUPROFEN 400 MG TABLET (FP) PO PRN (10:41)
== END 2018-03-06 12:08 | disposition other institution (70) | DRG 773 ==
LOC: YASAS 12:25 → Y6N 15:40
PROC: HZ2ZZZZ Detoxification Services for Substance Abuse Treatment (ICD-10-PCS; principal; 2018-03-01)
DX: F13.230 Sedative, hypnotic or anxiolytic dependence with withdrawal, uncomplicated (principal); F11.20 Opioid dependence, uncomplicated; F14.20 Cocaine dependence, uncomplicated; F12.20 Cannabis dependence, uncomplicated; F17.210 Nicotine dependence, cigarettes, uncomplicated; F19.24 Other psychoactive substance dependence with psychoactive substance-induced mood disorder; F41.9 Anxiety disorder, unspecified; F32.9 Major depressive disorder, single episode, unspecified; E86.0 Dehydration; G47.00 Insomnia, unspecified; R05 Cough; J06.9 Acute upper respiratory infection, unspecified; D64.9 Anemia, unspecified; R60.9 Edema, unspecified; Z86.69 Personal history of other diseases of the nervous system and sense organs
CPT/HCPCS: 36415; 80053; 81003; 81015; 85027; 86593

== ENCOUNTER 2018-03-06 12:40 | Inpatient (IN) | payer OTHER ==
[2018-03-06] MEDS ORDERED: P-EPHED 60MG/TRIPROLIDI 2.5MG TABLET PO PRN (13:37)
[2018-03-06] MEDS ORDERED: guaiFENesin/D-METHORPHAN HB 10 ML UNIT-DOSE CUPS PO PRN (13:37)
[2018-03-06] MEDS ORDERED: MAGNESIUM CITRATE 300 ML BOTTLE PO PRN (13:37)
[2018-03-06] MEDS ORDERED: MAG HYDROX/AL HYDROX/SIMETH 30 ML UNIT-DOSE CUP PO PRN (13:37)
[2018-03-06] MEDS ORDERED: hydrOXYzine PAMOATE 50 MG CAPSULE (FP) PO PRN (13:37)
[2018-03-06] MEDS ORDERED: LOPERAMIDE HCL 2 MG CAPSULE PO PRN (13:37)
[2018-03-06] MEDS ORDERED: MENTHOL/PHENOL 1 EACH UD MM PRN (13:37)
--- NOTE | 2018-03-06 13:37 | HP ---
LUISA [facility]OVE[facility] Rehab Assess/Revision - Admission History Admitted to Rehab [facility] - Findings Detox History & Physical reviewed: Yes Concur with findings: Yes Inpatient Rehab Admission - Initial Determination Are CD services needed?: Yes Not in need of hospitalization: Yes - Rehab Admission Criteria Previous failed treatment: Yes Poor recovery environment: Yes Comorbidities: Yes
--- NOTE | 2018-03-06 14:54 | HP ---
Psychiatrist Admission - Data Date of interview: 03/06/18 Admission source: [facility] Identifying data: This is the first admission to [address] [place] [address] for this 27 years old honduran male father of 2,resides with family,supported by family. Medical History: Significant for Anemia,Hep C. Psychiatric History: Reports anxiety,sleeping difficulties.No psychiatric treatment,denies suicidal attempts.patient was on Trazodone in the past with some response and is willing to restart it again. Physical/Sexual Abuse/Trauma History: patient denies. Allergies/Adverse Reactions: Allergies Allergy/AdvReac Type Severity Reaction Status Date / Time No Known Allergies Allergy Verified 03/01/18 14:52 Concur with the findings of this exam: Yes - Substance Abuse/Tx History Hx Alcohol Use: No Hx Substance Use: Yes (heroin since 21 yo IV since 2017,(MMTP)benzos and cocaine since 24 yo.) Substance Use Type: Cocaine, Marijuana, Opiates, Tranquilizers Hx Substance Use Treatment: Yes (completed this program in june 2017) Mental Status Exam - Mental Status Exam Alert and Oriented to: Time, Place, Person Cognitive Function: Grossly Intact Patient Appearance: Well Groomed Mood: Anxious Affect: Labile Patient Behavior: Cooperative Speech Pattern: Clear Voice Loudness: Normal Thought Process: Goal Oriented Thought Disorder: Not Present Hallucinations: Denies Suicidal Ideation: Denies Homicidal Ideation: Denies Insight/Judgement: Fair Sleep: Difficulty falling asleep Appetite: Good Muscle strength/Tone: Normal Gait/Station: Normal Psychiatric Findings - Problem List ([place] 1, 2,3) (1) Opioid dependence on agonist therapy Current Visit: Yes Status: Chronic (2) Substance induced mood disorder Current Visit: Yes Status: Acute (3) Anemia Current Visit: Yes Status: Chronic - Initial Treatment Plan Initial Treatment Plan: Trazodone 100 mg po hs.Will monitor progress.
[2018-03-06] MEDS: IBUPROFEN 400 MG TABLET (FP) PO PRN (21:38)
[2018-03-06] MEDS: THIAMINE HCL 100 MG TABLET (FP) PO SCH (21:39)
[2018-03-06] MEDS: traZODone HCL 100 MG TABLET (FP) PO SCH (21:40)
[2018-03-07] MEDS: METHADONE HCL 40 MG DISPERSABLE TABLET PO SCH (07:18)
[2018-03-07] MEDS: PRENATAL VITAMINS W/ FOLIC ACID TABLET (FP) PO SCH (10:35)
[2018-03-07] MEDS: IBUPROFEN 400 MG TABLET (FP) PO PRN ×2 (10:35→21:29)
[2018-03-07] MEDS: NICOTINE 21 MG/24 HOURS TOPICAL PATCH TD SCH (10:35)
[2018-03-07] MEDS: traZODone HCL 100 MG TABLET (FP) PO SCH (21:29)
[2018-03-07] MEDS: THIAMINE HCL 100 MG TABLET (FP) PO SCH (21:29)
[2018-03-08] MEDS: METHADONE HCL 40 MG DISPERSABLE TABLET PO SCH (06:35)
[2018-03-08] MEDS: PRENATAL VITAMINS W/ FOLIC ACID TABLET (FP) PO SCH (10:48)
[2018-03-08] MEDS: NICOTINE 21 MG/24 HOURS TOPICAL PATCH TD SCH (10:48)
[2018-03-08] MEDS: IBUPROFEN 400 MG TABLET (FP) PO PRN ×2 (10:49→21:34)
[2018-03-08] MEDS: METHYL SALICYLATE/MENTHOL OINT 30 GM TUBE TP SCH (14:28)
[2018-03-08] MEDS: NICOTINE POLACRILEX 4 MG GUM BUC PRN (15:52)
[2018-03-08] MEDS: traZODone HCL 100 MG TABLET (FP) PO SCH (21:33)
[2018-03-08] MEDS: THIAMINE HCL 100 MG TABLET (FP) PO SCH (21:33)
[2018-03-09] MEDS: METHADONE HCL 40 MG DISPERSABLE TABLET PO SCH (06:20)
[2018-03-09] MEDS: NICOTINE 21 MG/24 HOURS TOPICAL PATCH TD SCH (10:31)
[2018-03-09] MEDS: PRENATAL VITAMINS W/ FOLIC ACID TABLET (FP) PO SCH (10:31)
[2018-03-09] MEDS: METHYL SALICYLATE/MENTHOL OINT 30 GM TUBE TP SCH (10:31)
[2018-03-09] MEDS: IBUPROFEN 400 MG TABLET (FP) PO PRN ×2 (10:32→21:49)
[2018-03-09] MEDS: traZODone HCL 100 MG TABLET (FP) PO SCH (21:49)
[2018-03-09] MEDS: THIAMINE HCL 100 MG TABLET (FP) PO SCH (21:49)
[2018-03-09] MEDS: NICOTINE POLACRILEX 4 MG GUM BUC PRN (21:50)
[2018-03-10] MEDS: METHADONE HCL 40 MG DISPERSABLE TABLET PO SCH (06:37)
[2018-03-10] MEDS: PRENATAL VITAMINS W/ FOLIC ACID TABLET (FP) PO SCH (10:33)
[2018-03-10] MEDS: METHYL SALICYLATE/MENTHOL OINT 30 GM TUBE TP SCH (10:33)
[2018-03-10] MEDS: NICOTINE 21 MG/24 HOURS TOPICAL PATCH TD SCH (10:33)
[2018-03-10] MEDS: IBUPROFEN 400 MG TABLET (FP) PO PRN ×2 (10:33→21:35)
[2018-03-10] MEDS: traZODone HCL 100 MG TABLET (FP) PO SCH (21:35)
[2018-03-10] MEDS: THIAMINE HCL 100 MG TABLET (FP) PO SCH (21:35)
[2018-03-10] MEDS: MELATONIN 5 MG TABLETS PO PRN (21:35)
[2018-03-10] MEDS: NICOTINE POLACRILEX 4 MG GUM BUC PRN (21:36)
[2018-03-11] MEDS: METHADONE HCL 40 MG DISPERSABLE TABLET PO SCH (06:25)
[2018-03-11] MEDS: PRENATAL VITAMINS W/ FOLIC ACID TABLET (FP) PO SCH (10:02)
[2018-03-11] MEDS: NICOTINE 21 MG/24 HOURS TOPICAL PATCH TD SCH (10:02)
[2018-03-11] MEDS: METHYL SALICYLATE/MENTHOL OINT 30 GM TUBE TP SCH (10:03)
[2018-03-11] MEDS: IBUPROFEN 400 MG TABLET (FP) PO PRN ×2 (10:04→21:29)
[2018-03-11] MEDS: THIAMINE HCL 100 MG TABLET (FP) PO SCH (21:29)
[2018-03-11] MEDS: traZODone HCL 100 MG TABLET (FP) PO SCH (21:29)
[2018-03-11] MEDS: NICOTINE POLACRILEX 4 MG GUM BUC PRN (21:30)
[2018-03-12] MEDS: METHADONE HCL 40 MG DISPERSABLE TABLET PO SCH (06:24)
[2018-03-12] MEDS: NICOTINE 21 MG/24 HOURS TOPICAL PATCH TD SCH (10:13)
[2018-03-12] MEDS: METHYL SALICYLATE/MENTHOL OINT 30 GM TUBE TP SCH (10:14)
[2018-03-12] MEDS: IBUPROFEN 400 MG TABLET (FP) PO PRN ×2 (10:15→21:29)
[2018-03-12] MEDS: PRENATAL VITAMINS W/ FOLIC ACID TABLET (FP) PO SCH (10:15)
[2018-03-12] MEDS: THIAMINE HCL 100 MG TABLET (FP) PO SCH (21:29)
[2018-03-12] MEDS: traZODone HCL 100 MG TABLET (FP) PO SCH (21:30)
[2018-03-12] MEDS: MELATONIN 5 MG TABLETS PO PRN (21:30)
[2018-03-12] MEDS: NICOTINE POLACRILEX 4 MG GUM BUC PRN (21:31)
[2018-03-13] MEDS: METHADONE HCL 40 MG DISPERSABLE TABLET PO SCH (06:40)
[2018-03-13] MEDS: METHYL SALICYLATE/MENTHOL OINT 30 GM TUBE TP SCH ×2 (10:33→21:27)
[2018-03-13] MEDS: IBUPROFEN 400 MG TABLET (FP) PO PRN (10:33)
[2018-03-13] MEDS: PRENATAL VITAMINS W/ FOLIC ACID TABLET (FP) PO SCH (10:33)
[2018-03-13] MEDS: NICOTINE 21 MG/24 HOURS TOPICAL PATCH TD SCH (10:33)
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
[2018-03-13] MEDS: traZODone HCL 100 MG TABLET (FP) PO SCH (21:26)
[2018-03-13] MEDS: THIAMINE HCL 100 MG TABLET (FP) PO SCH (21:26)
[2018-03-13] MEDS: MELATONIN 5 MG TABLETS PO PRN (21:27)
[2018-03-13] MEDS: IBUPROFEN 600 MG TABLET (FP) PO PRN (21:28)
[2018-03-13] MEDS: NICOTINE POLACRILEX 4 MG GUM BUC PRN (21:28)
[2018-03-13] MEDS ORDERED: METHYL SALICYLATE/MENTHOL OINT 30 GM TUBE TP SCH (22:00)
[2018-03-14] MEDS: METHADONE HCL 40 MG DISPERSABLE TABLET PO SCH (06:31)
[2018-03-14] MEDS: IBUPROFEN 600 MG TABLET (FP) PO PRN ×2 (10:15→21:27)
[2018-03-14] MEDS: PRENATAL VITAMINS W/ FOLIC ACID TABLET (FP) PO SCH (10:15)
[2018-03-14] MEDS: METHYL SALICYLATE/MENTHOL OINT 30 GM TUBE TP SCH ×2 (10:16→21:41)
[2018-03-14] MEDS: NICOTINE 21 MG/24 HOURS TOPICAL PATCH TD SCH (10:17)
[2018-03-14] MEDS: THIAMINE HCL 100 MG TABLET (FP) PO SCH (21:25)
[2018-03-14] MEDS: traZODone HCL 100 MG TABLET (FP) PO SCH (21:26)
[2018-03-14] MEDS: MELATONIN 5 MG TABLETS PO PRN (21:26)
[2018-03-14] MEDS: NICOTINE POLACRILEX 4 MG GUM BUC PRN (21:28)
[2018-03-15] MEDS: METHADONE HCL 40 MG DISPERSABLE TABLET PO SCH (07:04)
[2018-03-15] MEDS: NICOTINE 21 MG/24 HOURS TOPICAL PATCH TD SCH (10:42)
[2018-03-15] MEDS: PRENATAL VITAMINS W/ FOLIC ACID TABLET (FP) PO SCH (10:42)
[2018-03-15] MEDS: METHYL SALICYLATE/MENTHOL OINT 30 GM TUBE TP SCH ×2 (10:42→21:29)
[2018-03-15] MEDS: IBUPROFEN 600 MG TABLET (FP) PO PRN ×2 (10:44→21:30)
[2018-03-15] MEDS: traZODone HCL 100 MG TABLET (FP) PO SCH (21:28)
[2018-03-15] MEDS: THIAMINE HCL 100 MG TABLET (FP) PO SCH (21:28)
[2018-03-15] MEDS: NICOTINE POLACRILEX 4 MG GUM BUC PRN (21:29)
[2018-03-15] MEDS: MELATONIN 5 MG TABLETS PO PRN (21:31)
[2018-03-16] MEDS: METHADONE HCL 40 MG DISPERSABLE TABLET PO SCH (06:21)
[2018-03-16] MEDS: NICOTINE 21 MG/24 HOURS TOPICAL PATCH TD SCH (10:26)
[2018-03-16] MEDS: IBUPROFEN 600 MG TABLET (FP) PO PRN ×2 (10:26→21:24)
[2018-03-16] MEDS: PRENATAL VITAMINS W/ FOLIC ACID TABLET (FP) PO SCH (10:26)
[2018-03-16] MEDS: METHYL SALICYLATE/MENTHOL OINT 30 GM TUBE TP SCH ×2 (10:48→21:51)
[2018-03-16] MEDS ORDERED: traZODone HCL 50 MG TABLET (FP) ONE (20:34)
[2018-03-16] MEDS: THIAMINE HCL 100 MG TABLET (FP) PO SCH (21:22)
[2018-03-16] MEDS: NICOTINE POLACRILEX 4 MG GUM BUC PRN (21:23)
[2018-03-16] MEDS: traZODone HCL 100 MG TABLET (FP) PO SCH (21:23)
[2018-03-16] MEDS: MELATONIN 5 MG TABLETS PO PRN (21:23)
[2018-03-17] MEDS: METHADONE HCL 40 MG DISPERSABLE TABLET PO SCH (06:46)
[2018-03-17] MEDS: PRENATAL VITAMINS W/ FOLIC ACID TABLET (FP) PO SCH (10:03)
[2018-03-17] MEDS: METHYL SALICYLATE/MENTHOL OINT 30 GM TUBE TP SCH ×2 (10:03→21:27)
[2018-03-17] MEDS: NICOTINE 21 MG/24 HOURS TOPICAL PATCH TD SCH (10:03)
[2018-03-17] MEDS: IBUPROFEN 600 MG TABLET (FP) PO PRN ×2 (10:04→21:28)
[2018-03-17] MEDS: traZODone HCL 100 MG TABLET (FP) PO SCH (21:27)
[2018-03-17] MEDS: MELATONIN 5 MG TABLETS PO PRN (21:27)
[2018-03-17] MEDS: THIAMINE HCL 100 MG TABLET (FP) PO SCH (21:27)
[2018-03-17] MEDS: NICOTINE POLACRILEX 4 MG GUM BUC PRN (21:28)
[2018-03-18] MEDS: METHADONE HCL 40 MG DISPERSABLE TABLET PO SCH (06:34)
[2018-03-18] MEDS: PRENATAL VITAMINS W/ FOLIC ACID TABLET (FP) PO SCH (09:47)
[2018-03-18] MEDS: IBUPROFEN 600 MG TABLET (FP) PO PRN ×2 (09:47→21:34)
[2018-03-18] MEDS: NICOTINE POLACRILEX 4 MG GUM BUC PRN ×2 (09:48→21:35)
[2018-03-18] MEDS: NICOTINE 21 MG/24 HOURS TOPICAL PATCH TD SCH (09:48)
[2018-03-18] MEDS: METHYL SALICYLATE/MENTHOL OINT 30 GM TUBE TP SCH ×2 (09:48→21:37)
[2018-03-18] MEDS: THIAMINE HCL 100 MG TABLET (FP) PO SCH (21:34)
[2018-03-18] MEDS: traZODone HCL 100 MG TABLET (FP) PO SCH (21:34)
[2018-03-18] MEDS: MELATONIN 5 MG TABLETS PO PRN (21:35)
[2018-03-18] MEDS: MAGNESIUM HYDROX 2400MG/30ML ORAL SUSPENSION 30 ML CUP PO PRN (21:35)
[2018-03-19] MEDS: METHADONE HCL 40 MG DISPERSABLE TABLET PO SCH (06:33)
[2018-03-19] MEDS: PRENATAL VITAMINS W/ FOLIC ACID TABLET (FP) PO SCH (09:54)
[2018-03-19] MEDS: NICOTINE 21 MG/24 HOURS TOPICAL PATCH TD SCH (09:54)
[2018-03-19] MEDS: IBUPROFEN 600 MG TABLET (FP) PO PRN ×2 (09:54→21:28)
[2018-03-19] MEDS: NICOTINE POLACRILEX 4 MG GUM BUC PRN ×2 (09:56→21:29)
[2018-03-19] MEDS: METHYL SALICYLATE/MENTHOL OINT 30 GM TUBE TP SCH ×2 (09:59→21:52)
[2018-03-19] MEDS: MAGNESIUM HYDROX 2400MG/30ML ORAL SUSPENSION 30 ML CUP PO PRN (14:35)
[2018-03-19] MEDS: MELATONIN 5 MG TABLETS PO PRN (21:26)
[2018-03-19] MEDS: traZODone HCL 100 MG TABLET (FP) PO SCH (21:26)
[2018-03-19] MEDS: THIAMINE HCL 100 MG TABLET (FP) PO SCH (21:26)
[2018-03-20] MEDS: METHADONE HCL 40 MG DISPERSABLE TABLET PO SCH (06:18)
[2018-03-20] MEDS: PRENATAL VITAMINS W/ FOLIC ACID TABLET (FP) PO SCH (10:03)
[2018-03-20] MEDS: NICOTINE 21 MG/24 HOURS TOPICAL PATCH TD SCH (10:03)
[2018-03-20] MEDS: METHYL SALICYLATE/MENTHOL OINT 30 GM TUBE TP SCH ×2 (11:05→21:34)
[2018-03-20] MEDS: IBUPROFEN 600 MG TABLET (FP) PO PRN ×2 (11:08→21:24)
[2018-03-20] MEDS: THIAMINE HCL 100 MG TABLET (FP) PO SCH (21:23)
[2018-03-20] MEDS: traZODone HCL 100 MG TABLET (FP) PO SCH (21:23)
[2018-03-20] MEDS: MELATONIN 5 MG TABLETS PO PRN (21:25)
[2018-03-20] MEDS: MAGNESIUM HYDROX 2400MG/30ML ORAL SUSPENSION 30 ML CUP PO PRN (21:25)
[2018-03-20] MEDS: NICOTINE POLACRILEX 4 MG GUM BUC PRN (21:27)
[2018-03-21] MEDS: METHADONE HCL 40 MG DISPERSABLE TABLET PO SCH (06:31)
[2018-03-21] MEDS: PRENATAL VITAMINS W/ FOLIC ACID TABLET (FP) PO SCH (09:43)
[2018-03-21] MEDS: NICOTINE 21 MG/24 HOURS TOPICAL PATCH TD SCH (09:43)
[2018-03-21] MEDS: METHYL SALICYLATE/MENTHOL OINT 30 GM TUBE TP SCH ×2 (09:43→21:31)
[2018-03-21] MEDS: IBUPROFEN 600 MG TABLET (FP) PO PRN (09:44)
[2018-03-21] MEDS: traZODone HCL 100 MG TABLET (FP) PO SCH (21:30)
[2018-03-21] MEDS: NICOTINE POLACRILEX 4 MG GUM BUC PRN (21:30)
[2018-03-21] MEDS: MELATONIN 5 MG TABLETS PO PRN (21:30)
[2018-03-21] MEDS: THIAMINE HCL 100 MG TABLET (FP) PO SCH (21:30)
[2018-03-22] MEDS: METHADONE HCL 40 MG DISPERSABLE TABLET PO SCH (06:40)
[2018-03-22] MEDS: NICOTINE 21 MG/24 HOURS TOPICAL PATCH TD SCH (10:02)
[2018-03-22] MEDS: METHYL SALICYLATE/MENTHOL OINT 30 GM TUBE TP SCH ×2 (10:02→21:27)
[2018-03-22] MEDS: NICOTINE POLACRILEX 4 MG GUM BUC PRN ×2 (10:02→21:27)
[2018-03-22] MEDS: PRENATAL VITAMINS W/ FOLIC ACID TABLET (FP) PO SCH (10:03)
[2018-03-22] MEDS: THIAMINE HCL 100 MG TABLET (FP) PO SCH (21:27)
[2018-03-22] MEDS: MELATONIN 5 MG TABLETS PO PRN (21:27)
[2018-03-22] MEDS: traZODone HCL 100 MG TABLET (FP) PO SCH (21:27)
[2018-03-23] MEDS: METHADONE HCL 40 MG DISPERSABLE TABLET PO SCH (06:30)
[2018-03-23] MEDS: NICOTINE 21 MG/24 HOURS TOPICAL PATCH TD SCH (10:04)
[2018-03-23] MEDS: PRENATAL VITAMINS W/ FOLIC ACID TABLET (FP) PO SCH (10:04)
[2018-03-23] MEDS: METHYL SALICYLATE/MENTHOL OINT 30 GM TUBE TP SCH ×2 (10:05→21:34)
[2018-03-23] MEDS: ACETAMINOPHEN 325 MG TABLET (FP) PO PRN (18:27)
[2018-03-23] MEDS: MELATONIN 5 MG TABLETS PO PRN (21:34)
[2018-03-23] MEDS: THIAMINE HCL 100 MG TABLET (FP) PO SCH (21:34)
[2018-03-23] MEDS: traZODone HCL 100 MG TABLET (FP) PO SCH (21:34)
[2018-03-23] MEDS: NICOTINE POLACRILEX 4 MG GUM BUC PRN (21:35)
[2018-03-24] MEDS: METHADONE HCL 40 MG DISPERSABLE TABLET PO SCH (06:22)
[2018-03-24] MEDS: METHYL SALICYLATE/MENTHOL OINT 30 GM TUBE TP SCH ×2 (10:27→21:42)
[2018-03-24] MEDS: PRENATAL VITAMINS W/ FOLIC ACID TABLET (FP) PO SCH (10:27)
[2018-03-24] MEDS: NICOTINE 21 MG/24 HOURS TOPICAL PATCH TD SCH (10:27)
[2018-03-24] MEDS: NICOTINE POLACRILEX 4 MG GUM BUC PRN ×2 (10:29→21:42)
[2018-03-24] MEDS: traZODone HCL 100 MG TABLET (FP) PO SCH (21:40)
[2018-03-24] MEDS: THIAMINE HCL 100 MG TABLET (FP) PO SCH (21:40)
[2018-03-24] MEDS: MELATONIN 5 MG TABLETS PO PRN (21:41)
[2018-03-25] MEDS: METHADONE HCL 40 MG DISPERSABLE TABLET PO SCH (06:33)
[2018-03-25] MEDS: METHYL SALICYLATE/MENTHOL OINT 30 GM TUBE TP SCH ×2 (10:14→21:53)
[2018-03-25] MEDS: NICOTINE 21 MG/24 HOURS TOPICAL PATCH TD SCH (10:14)
[2018-03-25] MEDS: PRENATAL VITAMINS W/ FOLIC ACID TABLET (FP) PO SCH (10:14)
[2018-03-25] MEDS: IBUPROFEN 600 MG TABLET (FP) PO PRN ×2 (13:56→21:42)
[2018-03-25] MEDS: MELATONIN 5 MG TABLETS PO PRN (21:42)
[2018-03-25] MEDS: traZODone HCL 100 MG TABLET (FP) PO SCH (21:42)
[2018-03-25] MEDS: THIAMINE HCL 100 MG TABLET (FP) PO SCH (21:42)
[2018-03-25] MEDS: NICOTINE POLACRILEX 4 MG GUM BUC PRN (21:43)
[2018-03-26] MEDS: METHADONE HCL 40 MG DISPERSABLE TABLET PO SCH (06:43)
[2018-03-26] MEDS: NICOTINE 21 MG/24 HOURS TOPICAL PATCH TD SCH (09:57)
[2018-03-26] MEDS: NICOTINE POLACRILEX 4 MG GUM BUC PRN ×2 (09:57→21:48)
[2018-03-26] MEDS: PRENATAL VITAMINS W/ FOLIC ACID TABLET (FP) PO SCH (09:59)
[2018-03-26] MEDS: METHYL SALICYLATE/MENTHOL OINT 30 GM TUBE TP SCH ×2 (11:33→21:50)
[2018-03-26] MEDS: THIAMINE HCL 100 MG TABLET (FP) PO SCH (21:48)
[2018-03-26] MEDS: MELATONIN 5 MG TABLETS PO PRN (21:48)
[2018-03-26] MEDS: traZODone HCL 100 MG TABLET (FP) PO SCH (21:49)
[2018-03-27] MEDS: METHADONE HCL 40 MG DISPERSABLE TABLET PO SCH (06:49)
[2018-03-27] MEDS: NICOTINE 21 MG/24 HOURS TOPICAL PATCH TD SCH (10:24)
[2018-03-27] MEDS: METHYL SALICYLATE/MENTHOL OINT 30 GM TUBE TP SCH ×2 (10:24→21:55)
[2018-03-27] MEDS: PRENATAL VITAMINS W/ FOLIC ACID TABLET (FP) PO SCH (10:24)
[2018-03-27] MEDS: MELATONIN 5 MG TABLETS PO PRN (21:41)
[2018-03-27] MEDS: traZODone HCL 100 MG TABLET (FP) PO SCH (21:41)
[2018-03-27] MEDS: THIAMINE HCL 100 MG TABLET (FP) PO SCH (21:41)
[2018-03-27] MEDS: NICOTINE POLACRILEX 4 MG GUM BUC PRN (21:43)
[2018-03-28] MEDS: METHADONE HCL 40 MG DISPERSABLE TABLET PO SCH (06:25)
[2018-03-28] MEDS: PRENATAL VITAMINS W/ FOLIC ACID TABLET (FP) PO SCH (10:31)
[2018-03-28] MEDS: METHYL SALICYLATE/MENTHOL OINT 30 GM TUBE TP SCH ×2 (10:31→21:33)
[2018-03-28] MEDS: NICOTINE 21 MG/24 HOURS TOPICAL PATCH TD SCH (10:31)
[2018-03-28] MEDS: NICOTINE POLACRILEX 4 MG GUM BUC PRN ×2 (10:32→21:33)
[2018-03-28] MEDS: traZODone HCL 100 MG TABLET (FP) PO SCH (21:32)
[2018-03-28] MEDS: THIAMINE HCL 100 MG TABLET (FP) PO SCH (21:32)
[2018-03-28] MEDS: MELATONIN 5 MG TABLETS PO PRN (21:32)
[2018-03-29] MEDS: METHADONE HCL 40 MG DISPERSABLE TABLET PO SCH (06:43)
[2018-03-29] MEDS: PRENATAL VITAMINS W/ FOLIC ACID TABLET (FP) PO SCH (10:18)
[2018-03-29] MEDS: METHYL SALICYLATE/MENTHOL OINT 30 GM TUBE TP SCH ×2 (10:19→21:37)
[2018-03-29] MEDS: NICOTINE 21 MG/24 HOURS TOPICAL PATCH TD SCH (10:19)
[2018-03-29] MEDS: IBUPROFEN 600 MG TABLET (FP) PO PRN ×2 (10:20→21:36)
[2018-03-29] MEDS: ACETAMINOPHEN 325 MG TABLET (FP) PO PRN (14:14)
[2018-03-29] MEDS: THIAMINE HCL 100 MG TABLET (FP) PO SCH (21:35)
[2018-03-29] MEDS: traZODone HCL 100 MG TABLET (FP) PO SCH (21:35)
[2018-03-29] MEDS: NICOTINE POLACRILEX 4 MG GUM BUC PRN (21:36)
[2018-03-29] MEDS: MELATONIN 5 MG TABLETS PO PRN (21:37)
[2018-03-30] MEDS: METHADONE HCL 40 MG DISPERSABLE TABLET PO SCH (06:37)
[2018-03-30 07:15] VITALS: TEMP 98
[2018-03-30] MEDS: PRENATAL VITAMINS W/ FOLIC ACID TABLET (FP) PO SCH (10:50)
[2018-03-30] MEDS: IBUPROFEN 600 MG TABLET (FP) PO PRN ×2 (10:50→21:55)
[2018-03-30] MEDS: METHYL SALICYLATE/MENTHOL OINT 30 GM TUBE TP SCH ×2 (10:51→21:54)
[2018-03-30] MEDS: NICOTINE 21 MG/24 HOURS TOPICAL PATCH TD SCH (10:51)
--- NOTE | 2018-03-30 13:40 | PN ---
Psychiatric Progress Note Vital Signs: Vital Signs Period Temp Pulse Resp BP Sys/Argueta Pulse Ox Last 24 Hr 98.0 F 83 16-18 144/84 Date of Session: 03/30/18 Chief Complaint:: Discharge Note HPI: Patient addressing Cocaine, Sedative and Cannabis Dependence comorbid with Opioid dependence on Agonist Therapy, Nicotine Dependence and Anxiety Disorder ROS: Sedative withdrawal seizure Current Medications: Active Medications Generic Name Dose Route Start Last Admin Trade Name Freq PRN Reason Stop Dose Admin Acetaminophen 650 mg 03/06/18 13:37 03/29/18 14:14 Tylenol - PO 650 mg Q4H PRN Administration FEVER Al Hydroxide/Mg Hydroxide 30 ml 03/06/18 13:37 Mylanta Oral Suspension - PO Q6H PRN DYSPEPSIA Eucalyptus/Menthol/Phenol/Sorbitol 1 each 03/06/18 13:37 Cepastat Lozenge - MM Q4H PRN SORE THROAT Guaifenesin 10 ml 03/06/18 13:37 Robitussin Dm - PO Q6H PRN COUGH Hydroxyzine Pamoate 50 mg 03/06/18 13:37 Vistaril - PO Q4H PRN AGITATION Ibuprofen 600 mg 03/13/18 12:02 03/30/18 10:50 Motrin - PO 600 mg Q6H PRN Administration Pain Level 4-6 Loperamide HCl 4 mg 03/06/18 13:37 Imodium - PO Q6H PRN DIARRHEA Magnesium Citrate 300 ml 03/06/18 13:37 Citroma - PO Q48H PRN CONSTIPATION Magnesium Hydroxide 30 ml 03/06/18 13:37 03/20/18 21:25 Milk Of Magnesia - PO 30 ml DAILY PRN Administration CONSTIPATION Melatonin 5 mg 03/06/18 22:00 03/29/18 21:37 Melatonin PO 5 mg HS PRN Administration INSOMNIA Methadone HCl 320 mg 03/27/18 06:00 03/30/18 06:37 Dolophine - PO 04/03/18 05:59 320 mg DAILY@0600 MARCO Administration Methyl Salicylate 1 applic 03/13/18 22:00 03/30/18 10:51 Jourdan-Dietz - TP Not Given BID MARCO Nicotine 21 mg 03/07/18 10:00 03/30/18 10:51 Nicoderm Patch - TD 21 mg DAILY MARCO Administration Nicotine Polacrilex 4 mg 03/06/18 13:37 03/29/18 21:36 Nicorette Gum - BUC 4 mg Q2H PRN Administration NICOTINE REPLACEMENT RX Multivit/Folic Acid/Iron 1 tab 03/07/18 10:00 03/30/18 10:50 Vitamins (Sjr) - PO 1 tab DAILY MARCO Administration Pseudoephedrine/Triprolidine 1 combo 03/06/18 13:37 Actifed - PO TID PRN NASAL CONGESTION Thiamine HCl 100 mg 03/06/18 22:00 03/29/18 21:35 Vitamin B1 - PO 100 mg HS MARCO Administration Trazodone HCl 100 mg 03/06/18 22:00 03/29/18 21:35 Desyrel - PO 100 mg HS MARCO Administration Current Side Effect: No Lab tests ordered: Yes Lab tests reviewed: Yes Provider note:: Patient will complete this program on 03/31/18. He has met his treatment goals and will continue to address his issues in outpatient treatment at [facility] at [address] [place] [address]. 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 He responded well to Trazadone 100 mg po HS. Script for 30 days supply of medication will be electronically transmitted to [facility] at [address] [place] [address]. He is stable for discharge on 03/31/18 Total face to face time:: 35 Mental Status Exam - Mental Status Exam Alert and Oriented to: Time, Place, Person Cognitive Function: Fair Patient Appearance: Well Groomed Mood: Hopeful, Euthymic Affect: Appropriate Patient Behavior: Cooperative Speech Pattern: Clear Voice Loudness: Normal Thought Process: Intact Thought Disorder: Not Present Hallucinations: Denies Suicidal Ideation: Denies Homicidal Ideation: Denies Insight/Judgement: Fair Sleep: Fair Appetite: Fair Muscle strength/Tone: Normal Gait/Station: Normal Psychiatric Treatment Plan - Problem List (1) Cocaine dependence Current Visit: Yes (2) Sedative hypnotic or anxiolytic dependence Current Visit: Yes (3) Sedative hypnotic or anxiolytic dependence Current Visit: Yes (4) Cannabis dependence Current Visit: Yes (5) Opioid dependence on agonist therapy Current Visit: Yes (6) Nicotine dependence Current Visit: No Qualifiers: Nicotine product type: cigarettes Substance use status: uncomplicated Qualified Code(s): F17.210 - Nicotine dependence, cigarettes, uncomplicated (7) Anxiety disorder Current Visit: Yes (8) Seizure concurrent with and due to sedative withdrawal Current Visit: Yes Initial treatment plan: Patient will be discharged tomorrow and [facility]
[2018-03-30] MEDS: THIAMINE HCL 100 MG TABLET (FP) PO SCH (21:53)
[2018-03-30] MEDS: traZODone HCL 100 MG TABLET (FP) PO SCH (21:53)
[2018-03-30] MEDS: MELATONIN 5 MG TABLETS PO PRN (21:53)
[2018-03-30] MEDS: NICOTINE POLACRILEX 4 MG GUM BUC PRN (21:56)
[2018-03-31] MEDS: METHADONE HCL 40 MG DISPERSABLE TABLET PO SCH (06:53)
[2018-03-31 06:57] VITALS: BP 147/83; PULSE 79
[2018-03-31] MEDS: IBUPROFEN 600 MG TABLET (FP) PO PRN (09:28)
[2018-03-31] MEDS: PRENATAL VITAMINS W/ FOLIC ACID TABLET (FP) PO SCH (09:28)
== END 2018-03-31 10:10 | disposition home or self-care (01) | DRG 772 ==
LOC: YASAS 12:40 → Y5N 12:41
PROVIDERS: ADMIT Psychiatry & Neurology Psychiatry; ATTEND Psychiatry & Neurology Psychiatry
PROC: HZ42ZZZ Group Counseling for Substance Abuse Treatment, Cognitive-Behavioral (ICD-10-PCS; principal; 2018-03-06)
DX: F13.20 Sedative, hypnotic or anxiolytic dependence, uncomplicated (principal); F11.20 Opioid dependence, uncomplicated; F14.20 Cocaine dependence, uncomplicated; F17.210 Nicotine dependence, cigarettes, uncomplicated; F41.9 Anxiety disorder, unspecified; M54.9 Dorsalgia, unspecified; D64.9 Anemia, unspecified; B18.2 Chronic viral hepatitis C; Z91.81 History of falling; Z86.69 Personal history of other diseases of the nervous system and sense organs

== ENCOUNTER 2018-06-19 12:10 | Inpatient (IN) | payer OTHER ==
--- NOTE | 2018-06-19 13:28 | HP ---
CIWA Score Nausea/Vomitin Muscle Tremors: 2 Anxiety: 3 Agitation: 2 Paroxysmal Sweats: 2 Orientation: 0-Oriented Tacttile Disturbances: 1-Very Mild Itch/Numbness Auditory Disturbances: 0-None Visual Disturbances: 0-None Headache: 2-Mild CIWA-Ar Total Score: 14 - Admission Criteria OASAS Guidelines: Admission for Medically Managed Detox: Requires at least one of the followin. CIWA greater than 12 2. Seizures within the past 24 hours 3. Delirium tremens within the past 24 hours 4. Hallucinations within the past 24 hours 5. Acute intervention needed for co occurring medical disorder 6. Acute intervention needed for co occurring psychiatric disorder 7. Severe withdrawal that cannot be handled at a lower level of care (continued vomiting, continued diarrhea, abnormal vital signs) requiring intravenous medication and/or fluids 8. Patient presents the following: CIWA greater than 12 Admission Criteria Met: Admission criteria met Admission ROS [facility] Chief Complaint: " I need help" Allergies/Adverse Reactions: Allergies Allergy/AdvReac Type Severity Reaction Status Date / Time No Known Allergies Allergy Verified 06/19/18 12:51 History of Present Illness: 28 yo male with of opioid, xanax, klonopin, marijuana dependence is here seeking detox, self referred. Last detox and rehab 03/01/18 -03/31/18. Reports hx of seizure four months ago from benzo withdrawal. Patient currently linked to [facility] on methadone 320 mg QD, last medicated today, dose pending verification. PMHX: Anxiety and insomnia. Denies suicidal / homicidal ideation or hx of suicide attempt. , - Ebola screening Have you traveled outside of the country in the last 21 days: No Have you had contact with anyone from an Ebola affected area: No - Review of Systems Constitutional: Malaise, Changes in sleep EENT: reports: No Symptoms Reported Respiratory: reports: No Symptoms reported Cardiac: reports: No Symptoms Reported GI: reports: Diarrhea, Nausea, Poor Fluid Intake, Vomiting, Abdominal cramping : reports: No Symptoms Reported Musculoskeletal: reports: Muscle Pain Integumentary: reports: No Symptoms Reported Neuro: reports: Headache Endocrine: reports: Increased Thirst Hematology: reports: No Symptoms Reported Psychiatric: reports: Orientated x3, Anxious Other Systems: Reviewed and Negative Patient History - Patient Medical History Hx Anemia: Yes (N ot on medication) Hx Asthma: No Hx Chronic Obstructive Pulmonary Disease (COPD): No Hx Cancer: No Hx Cardiac Disorders: No Hx Congestive Heart Failure: No Hx Hypertension: No Hx Hypercholesterolemia: No Hx Pacemaker: No HX Cerebrovascular Accident: No Hx Seizures: Yes (drug related last 6 months ago) Hx Dementia: No Hx Diabetes: No Hx Gastrointestinal Disorders: No Hx Liver Disease: No Hx Genitourinary Disorders: No Hx Sexually Transmitted Disorders: No Hx Renal Disease (ESRD): No Hx Thyroid Disease: No Hx Human Immunodeficiency Virus (HIV): No ( NEGATIVE 2018) Hx Hepatitis C: No (Patient denies) Hx Depression: Yes Hx Suicide Attempt: No Hx Bipolar Disorder: No Hx Schizophrenia: No - Patient Surgical History Past Surgical History: No Hx Neurologic Surgery: No Hx Cataract Extraction: No Hx Cardiac Surgery: No Hx Lung Surgery: No Hx Breast Surgery: No Hx Breast Biopsy: No Hx Abdominal Surgery: No Hx Appendectomy: No Hx Cholecystectomy: No Hx Genitourinary Surgery: No Hx Section: No Hx Orthopedic Surgery: No Other Surgical History: DENIES. Anesthesia Reaction: No - PPD History Previous Implant?: Yes Documented Results: Negative w/proof Implanted On [facility] Admission?: Yes Date: 03/03/18 Results: 0 MM PPD to be Administered?: No - Smoking Cessation Smoking history: Current every day smoker Have you smoked in the past 12 months: Yes Aproximately how many cigarettes per day: 20 Cigars Per Day: 0 Hx Chewing Tobacco Use: No Initiated information on smoking cessation: Yes 'Breaking Loose' booklet given: 06/19/18 - Substance & Tx. History Hx Alcohol Use: No Hx Substance Use: Yes Substance Use Type: Heroin, Tranquilizers Hx Substance Use Treatment: Yes (Detox and Rehab [facility] 03/01/18 -03/31/18) - Substances abused Alprazolam (Xanax) Substance route: Oral Frequency: Daily Amount used: 4 -5 mg Age of first use: 26 Date of last use: 06/17/18 Benzodiazepine (Klonopin) Substance route: Oral Frequency: Daily Amount used: 6 mg Age of first use: 26 Date of last use: 06/17/18 Family Disease History - Family Disease History Family Disease History: Diabetes: Father (BLOOD CLOT, ), Brother, Heart Disease: Mother (, [place].), Brother, Other: Father Admission Physical Exam [facility] - Vital Signs Vital Signs: Vital Signs - 24 hr 06/19/18 13:15 Temperature 99.3 F Pulse Rate 62 Respiratory 18 Rate Blood Pressure 133/83 - Physical General Appearance: Yes: Appropriately Dressed, Thin, Sweating, Anxious HEENTM: Yes: EOMI, Hearing grossly Normal, Normal ENT Inspection, Normocephalic , Normal Voice, QUIN, Pharynx Normal, Tm's normal, Other (dry mucous membranes) Respiratory: Yes: Chest Non-Tender, Lungs Clear, Normal Breath Sounds, No Respiratory Distress, No Accessory Muscle Use Neck: Yes: Within Normal Limits Breast: Yes: Breast Exam Deferred Cardiology: Yes: Regular Rhythm, Regular Rate Abdominal: Yes: Normal Bowel Sounds, Non Tender, Soft, Protuberent Genitourinary: Yes: Within Normal Limits Back: Yes: Normal Inspection Musculoskeletal: Yes: full range of Motion, Gait Steady, Pelvis Stable, Back pain Extremities: Yes: Normal Capillary Refill, Normal Inspection, Normal Range of Motion, Non-Tender Neurological: Yes: field 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 (2) Sedative hypnotic or anxiolytic dependence Current Visit: Yes Status: Acute (3) Seizure concurrent with and due to sedative withdrawal Current Visit: Yes Status: Acute (4) Nicotine dependence Current Visit: Yes Status: Chronic Qualifiers: Nicotine product type: cigarettes Substance use status: uncomplicated Qualified Code(s): F17.210 - Nicotine dependence, cigarettes, uncomplicated Cleared for Admission [facility] - Detox or Rehab [facility] Level of Care: Medically Managed Detox Regimen/Protocol: Valium Breathalyzer - Breathalyzer Breathalyzer: 0 Urine Drug Screen - Test Device Lot number: [id number] Expiration date: 02/18/20 - Control Is test valid?: Yes - Results Drug screen NEGATIVE: No Urine drug screen results: THC-Marijuana, MTD-Methadone, BZO-Benzodiazepines Inpatient Rehab Admission - Rehab Decision to Admit Inpatient rehab admission?: No
[2018-06-19] MEDS ORDERED: ACETAMINOPHEN 325 MG TABLET (FP) PO PRN ×2 (13:32)
[2018-06-19] MEDS ORDERED: IBUPROFEN 400 MG TABLET (FP) PO PRN (13:32)
[2018-06-19] MEDS ORDERED: MAGNESIUM HYDROX 2400MG/30ML ORAL SUSPENSION 30 ML CUP PO PRN (13:32)
[2018-06-19] MEDS ORDERED: MENTHOL/PHENOL 1 EACH UD MM PRN (13:32)
[2018-06-19] MEDS ORDERED: MAG HYDROX/AL HYDROX/SIMETH 30 ML UNIT-DOSE CUP PO PRN (13:32)
[2018-06-19] MEDS ORDERED: BISMUTH SUBSALICYLATE 262 MG/15 ML BTL PO PRN (13:32)
[2018-06-19] MEDS ORDERED: MAGNESIUM CITRATE 300 ML BOTTLE PO PRN (13:32)
[2018-06-19] MEDS: diazePAM 5 MG TABLET PO SCH ×2 (14:21→22:24)
[2018-06-19] MEDS: NICOTINE POLACRILEX 2 MG GUM BUC PRN ×2 (14:27→18:59)
[2018-06-19] MEDS: diazePAM 5 MG TABLET PO PRN ×2 (17:12→21:13)
[2018-06-19 17:48] LABS: HEMATOCRIT 38.4 % (35.4-49); HEMOGLOBIN 12.7 GM/dL (11.7-16.9); MCH 26.8 pg (25.7-33.7); MCHC 33.2 g/dl (32.0-35.9); MEAN CELL VOLUME 80.9 fl (80-96); MEAN PLT VOLUME 9.4 fl (7.5-11.1); PLATELET COUNT 332 K/MM3 (134-434); RBC 4.75 M/mm3 (4.00-5.60); WHITE BLOOD COUNT 8.9 K/mm3 (4.0-10.0)
[2018-06-19 18:03] LABS: ALK PHOS 139 U/L (45-117); ANION GAP 7 MMOL/L (8-16); BILIRUBIN,TOTAL 0.4 mg/dL (0.2-1); BLOOD UREA NITROGEN 11 mg/dL (7-18); CALCIUM 9.1 mg/dL (8.5-10.1); CHLORIDE 99 mmol/L (98-107); CO2 27 mmol/L (21-32); CREATININE 0.6 mg/dL (0.55-1.3); GLUCOSE,RANDOM 80 mg/dL (74-106); POTASSIUM 4.2 mmol/L (3.5-5.1); SGOT/AST 17 U/L (15-37); SGPT/ALT 23 U/L (13-61); SODIUM 133 mmol/L (136-145); TOT PROT 8.5 g/dl (6.4-8.2)
[2018-06-19] MEDS: MELATONIN 5 MG TABLETS PO PRN (22:22)
[2018-06-19] MEDS: METHOCARBAMOL 500 MG TABLET PO PRN (22:22)
[2018-06-19] MEDS: THIAMINE HCL 100 MG TABLET (FP) PO SCH (22:23)
[2018-06-20] MEDS: diazePAM 5 MG TABLET PO SCH ×3 (05:37→22:19)
[2018-06-20] MEDS: METHADONE HCL 40 MG DISPERSABLE TABLET PO SCH (09:00)
--- NOTE | 2018-06-20 09:04 | PN ---
S CIWA - CIWA Score Nausea/Vomitin Muscle Tremors: 2 Anxiety: 2 Agitation: 2 Paroxysmal Sweats: 1-Minimal Palms Moist Orientation: 0-Oriented Tacttile Disturbances: 1-Very Mild Itch/Numbness Auditory Disturbances: 1-Very Mild Visual Disturbances: 0-None Headache: 2-Mild CIWA-Ar Total Score: 13 [facility] Progress Note (SOAP) Subjective: alert,irritable,anxious,interrupted sleep,pain in the body Objective: 06/20/18 09:01 Vital Signs Temperature 96.6 F L 06/20/18 06:00 Pulse Rate 60 06/20/18 06:00 Respiratory Rate 18 06/20/18 06:00 Blood Pressure 130/77 06/20/18 06:00 O2 Sat by Pulse Oximetry (%) Laboratory Last Values WBC 8.9 K/mm3 (4.0-10.0) 06/19/18 14:10 RBC 4.75 M/mm3 (4.00-5.60) 06/19/18 14:10 Hgb 12.7 GM/dL (11.7-16.9) 06/19/18 14:10 Hct 38.4 % (35.4-49) 06/19/18 14:10 MCV 80.9 fl (80-96) 06/19/18 14:10 MCH 26.8 pg (25.7-33.7) 06/19/18 14:10 MCHC 33.2 g/dl (32.0-35.9) 06/19/18 14:10 RDW 16.0 % (11.9-15.9) H 06/19/18 14:10 Plt Count 332 K/MM3 (134-434) D 06/19/18 14:10 MPV 9.4 fl (7.5-11.1) 06/19/18 14:10 Sodium 133 mmol/L (136-145) L 06/19/18 14:10 Potassium 4.2 mmol/L (3.5-5.1) 06/19/18 14:10 Chloride 99 mmol/L (98-107) 06/19/18 14:10 Carbon Dioxide 27 mmol/L (21-32) 06/19/18 14:10 Anion Gap 7 MMOL/L (8-16) L 06/19/18 14:10 BUN 11 mg/dL (7-18) 06/19/18 14:10 Creatinine 0.6 mg/dL (0.55-1.3) 06/19/18 14:10 Creat Clearance w eGFR 158.19 (>60) 06/19/18 14:10 Random Glucose 80 mg/dL (74-106) 06/19/18 14:10 Calcium 9.1 mg/dL (8.5-10.1) 06/19/18 14:10 Total Bilirubin 0.4 mg/dL (0.2-1) 06/19/18 14:10 AST 17 U/L (15-37) 06/19/18 14:10 ALT 23 U/L (13-61) 06/19/18 14:10 Alkaline Phosphatase 139 U/L (45-117) H 06/19/18 14:10 Total Protein 8.5 g/dl (6.4-8.2) H 06/19/18 14:10 Albumin 4.0 g/dl (3.4-5.0) 06/19/18 14:10 06/20/18 09:02 rpr pending Assessment: 06/20/18 09:02 withdrawal symptom Plan: continue detox
[2018-06-20] MEDS: NICOTINE 21 MG/24 HOURS TOPICAL PATCH TD SCH (10:05)
[2018-06-20] MEDS: PRENATAL VITAMINS W/ FOLIC ACID TABLET (FP) PO SCH (10:05)
[2018-06-20] MEDS: diazePAM 5 MG TABLET PO PRN ×3 (10:06→18:18)
--- NOTE | 2018-06-20 14:46 | EKG ---
Test Reason : Blood Pressure : / mmHG Vent. Rate : 063 BPM Atrial Rate : 063 BPM P-R Int : 134 ms QRS Dur : 082 ms QT Int : 426 ms P-R-T Axes : 071 033 031 degrees QTc Int : 435 ms NORMAL SINUS RHYTHM NORMAL ECG WHEN COMPARED WITH ECG OF 16-JAN-2018 21:12, NO SIGNIFICANT CHANGE WAS FOUND Confirmed by Virgilio Moore ([id number]) on 06/20/2018 2:46:16 PM Referred By: PAULA CAMARILLO Confirmed By:Virgilio Moore
[2018-06-20] MEDS: THIAMINE HCL 100 MG TABLET (FP) PO SCH (22:19)
[2018-06-20] MEDS: METHOCARBAMOL 500 MG TABLET PO PRN (22:19)
[2018-06-20] MEDS: MELATONIN 5 MG TABLETS PO PRN (22:20)
[2018-06-21] MEDS ORDERED: diazePAM 5 MG TABLET PO ONE (06:00)
[2018-06-21] MEDS: METHADONE HCL 40 MG DISPERSABLE TABLET PO SCH (06:21)
[2018-06-21] MEDS: PRENATAL VITAMINS W/ FOLIC ACID TABLET (FP) PO SCH (10:31)
[2018-06-21] MEDS: NICOTINE POLACRILEX 2 MG GUM BUC PRN ×2 (10:32→18:55)
[2018-06-21] MEDS: NICOTINE 21 MG/24 HOURS TOPICAL PATCH TD SCH (10:32)
[2018-06-21] MEDS: diazePAM 5 MG TABLET PO PRN ×3 (10:33→18:51)
--- NOTE | 2018-06-21 10:33 | PN ---
S CIWA - CIWA Score Nausea/Vomitin-Mild Nausea/No Vomiting Muscle Tremors: 2 Anxiety: 1-Mildly Anxious Agitation: 1-Slight > Activity Paroxysmal Sweats: No Perspiration Orientation: 0-Oriented Tacttile Disturbances: 0-None Auditory Disturbances: 0-None Visual Disturbances: 7-Constant Hallucination [facility] Progress Note (SOAP) Subjective: pt states feeling better today with the benzo withdrawal protocol O: Vital Signs - 24 hr 06/20/18 06/20/18 06/20/18 13:54 16:47 21:07 Temperature 97.7 F 97.9 F 97.5 F L Pulse Rate 65 62 68 Respiratory 18 16 18 Rate Blood Pressure 125/72 132/75 137/66 06/21/18 06/21/18 06/21/18 00:30 03:30 07:46 Temperature 97.3 F L Pulse Rate 64 Respiratory 18 18 18 Rate Blood Pressure 119/73 06/21/18 09:05 Temperature 98.2 F Pulse Rate 67 Respiratory 18 Rate Blood Pressure 120/67 Laboratory Tests 06/19/18 06/19/18 06/19/18 14:10 14:10 14:10 WBC 8.9 RBC 4.75 Hgb 12.7 Hct 38.4 MCV 80.9 MCH 26.8 MCHC 33.2 RDW 16.0 H Plt Count 332 D MPV 9.4 Sodium 133 L Potassium 4.2 Chloride 99 Carbon Dioxide 27 Anion Gap 7 L BUN 11 Creatinine 0.6 Creat Clearance w eGFR 158.19 Random Glucose 80 Calcium 9.1 Total Bilirubin 0.4 AST 17 ALT 23 Alkaline Phosphatase 139 H Total Protein 8.5 H Albumin 4.0 RPR Titer Nonreactive labs mildly decreased Na VS WNL a/p: continue benzo withdrawal protocol- pt seems better today
[2018-06-21] MEDS: MELATONIN 5 MG TABLETS PO PRN (22:03)
[2018-06-21] MEDS: THIAMINE HCL 100 MG TABLET (FP) PO SCH (22:03)
[2018-06-21] MEDS: METHOCARBAMOL 500 MG TABLET PO PRN (22:05)
[2018-06-22] MEDS: METHADONE HCL 40 MG DISPERSABLE TABLET PO SCH (06:35)
[2018-06-22] MEDS: diazePAM 5 MG TABLET PO PRN (06:37)
[2018-06-22 07:25] VITALS: BP 128/78; PULSE 81; TEMP 97
--- NOTE | 2018-06-22 08:32 | DS ---
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 (2) Seizure concurrent with and due to sedative withdrawal Current Visit: Yes Status: Acute (3) Nicotine dependence Current Visit: Yes Status: Chronic Qualifiers: Nicotine product type: cigarettes Substance use status: uncomplicated Qualified Code(s): F17.210 - Nicotine dependence, cigarettes, uncomplicated (4) Anxiety disorder Current Visit: No Status: Acute (5) Cannabis dependence Current Visit: Yes Status: Chronic (6) Cocaine dependence Current Visit: Yes Status: Acute Qualifiers: Substance use status: uncomplicated Qualified Code(s): F14.20 - Cocaine dependence, uncomplicated (7) Anxiety Current Visit: No Status: Chronic (8) Hepatitis Current Visit: No Status: Chronic (9) Methadone maintenance therapy patient Current Visit: Yes Status: Chronic (10) Sedative, hypnotic or anxiolytic dependence with withdrawal, uncomplicated Current Visit: Yes Status: Chronic (11) Substance induced mood disorder Current Visit: No Status: Chronic
== END 2018-06-22 09:01 | disposition home or self-care (01) | DRG 774 ==
LOC: YASAS 12:10 → Y6N 13:54
PROVIDERS: ADMIT Surgery; ATTEND Surgery
PROC: HZ2ZZZZ Detoxification Services for Substance Abuse Treatment (ICD-10-PCS; principal; 2018-06-19)
DX: F13.230 Sedative, hypnotic or anxiolytic dependence with withdrawal, uncomplicated (principal); F14.20 Cocaine dependence, uncomplicated; F12.20 Cannabis dependence, uncomplicated; F17.210 Nicotine dependence, cigarettes, uncomplicated; F41.9 Anxiety disorder, unspecified; F19.24 Other psychoactive substance dependence with psychoactive substance-induced mood disorder; Z86.69 Personal history of other diseases of the nervous system and sense organs
CPT/HCPCS: 36415; 80053; 85027; 86593; 93005; 93010

== ENCOUNTER 2018-10-09 18:02 | Inpatient (IN) | payer OTHER ==
[2018-10-09 21:12] VITALS: BMI 25.3
--- NOTE | 2018-10-09 23:21 | HP ---
CIWA Score Nausea/Vomitin-Mild Nausea/No Vomiting Muscle Tremors: 1-None Visible, but [place] Anxiety: 4-Mod. Anxious/Guarded Agitation: 4-Moderately Restless Paroxysmal Sweats: 3 Orientation: 0-Oriented Tacttile Disturbances: 0-None Auditory Disturbances: 0-None Visual Disturbances: 3-Moderate Sensitivity Headache: 3-Moderate CIWA-Ar Total Score: 19 - Admission Criteria OASAS Guidelines: Admission for Medically Managed Detox: Requires at least one of the followin. CIWA greater than 12 2. Seizures within the past 24 hours 3. Delirium tremens within the past 24 hours 4. Hallucinations within the past 24 hours 5. Acute intervention needed for co occurring medical disorder 6. Acute intervention needed for co occurring psychiatric disorder 7. Severe withdrawal that cannot be handled at a lower level of care (continued vomiting, continued diarrhea, abnormal vital signs) requiring intravenous medication and/or fluids 8. Patient presents the following: CIWA greater than 12 Admission Criteria Met: Admission criteria met Admission ROS [facility] - [facility] Chief Complaint: c/o withdrawal sx's Allergies/Adverse Reactions: Allergies Allergy/AdvReac Type Severity Reaction Status Date / Time No Known Allergies Allergy Verified 10/09/18 21:06 History of Present Illness: 28 Y.O. MALE WITH HX/O OPIOID AND BENZO DEPENDENCE HERE FOR DETOX. CLIENT REPORTS HE IS ON MMTP AT [facility] 320 MG. LDM TODAY PENDING VERIFICATION. HE REPORTS DAILY USE OF NON RX XANAX AND KLONOPINS. PRESENTS WITH C/O WITHDRAWAL SX 'S. CIWA 19. LAST USE "EARLY THIS MORNING". HE IS SELF REFERRED. [facility] HERE 2018. REPORTS LONGEST CLEAN TIME 4 MONTHS. +HX/O SEIZURES, DRUG OVERDOSE.DOMICILED, EMPLOYED, DENIES LEGALS PMHX- DENIES PSYCH- DENIES Search Terms: sandip clifton, 1990 Search Date: 10/09/2018 11:15:40 PM The Drug Utilization Report below displays all of the controlled substance prescriptions, if any, that your patient has filled in the last twelve months. The information displayed on this report is compiled from pharmacy submissions to the Department, and accurately reflects the information as submitted by the pharmacies. This report was requested by: Vani Qiu | Reference #: [id number] There are no results for the search terms that you entered. Exam Limitations: No Limitations - Ebola screening Have you traveled outside of the country in the last 21 days: No (N) Have you had contact with anyone from an Ebola affected area: No Do you have a fever: No - Review of Systems Constitutional: Chills, Loss of Appetite, Malaise, Night Sweats, Changes in sleep EENT: reports: Dental Problems (MISSING TEETH) Respiratory: reports: No Symptoms reported Cardiac: reports: No Symptoms Reported GI: reports: Nausea, Poor Appetite, Poor Fluid Intake : reports: No Symptoms Reported Musculoskeletal: reports: Back Pain, Joint Pain, Neck Pain Integumentary: reports: Sweating, Other (LEFT HAND ABRASION) Neuro: reports: Headache, Seizure (HX/O), Tremors Endocrine: reports: No Symptoms Reported Hematology: reports: No Symptoms Reported Psychiatric: reports: Orientated x3, Anxious, Depressed Other Systems: Reviewed and Negative Patient History - Patient Medical History Hx Anemia: Yes (N ot on medication) Hx Asthma: No Hx Chronic Obstructive Pulmonary Disease (COPD): No Hx Cancer: No Hx Cardiac Disorders: No Hx Congestive Heart Failure: No Hx Hypertension: No Hx Hypercholesterolemia: No Hx Pacemaker: No HX Cerebrovascular Accident: No Hx Seizures: Yes Hx Dementia: No Hx Diabetes: No Hx Gastrointestinal Disorders: No Hx Liver Disease: No Hx Genitourinary Disorders: No Hx Sexually Transmitted Disorders: No Hx Renal Disease (ESRD): No Hx Thyroid Disease: No Hx Human Immunodeficiency Virus (HIV): No Hx Hepatitis C: No Hx Depression: Yes Hx Suicide Attempt: No Hx Bipolar Disorder: No Hx Schizophrenia: No - Patient Surgical History Past Surgical History: No Hx Neurologic Surgery: No Hx Cataract Extraction: No Hx Cardiac Surgery: No Hx Lung Surgery: No Hx Breast Surgery: No Hx Breast Biopsy: No Hx Abdominal Surgery: No Hx Appendectomy: No Hx Cholecystectomy: No Hx Genitourinary Surgery: No Hx Section: No Hx Orthopedic Surgery: No Other Surgical History: DENIES. Anesthesia Reaction: No - PPD History Previous Implant?: Yes Documented Results: Negative w/proof Implanted On Prior R Admission?: Yes Date: 03/03/18 Results: 0 MM PPD to be Administered?: No - Smoking Cessation Smoking history: Current every day smoker Have you smoked in the past 12 months: Yes Aproximately how many cigarettes per day: 20 Cigars Per Day: 0 Hx Chewing Tobacco Use: No Initiated information on smoking cessation: Yes 'Breaking Loose' booklet given: 10/09/18 - Substance & Tx. History Hx Alcohol Use: No Hx Substance Use: Yes Substance Use Type: Marijuana, Prescribed (MMTP), Tranquilizers (XANAX/KLONOPINS ) Hx Substance Use Treatment: Yes ([facility]) - Substances abused Alprazolam (Xanax) Substance route: Oral Frequency: Daily Amount used: 4 -5 mg Age of first use: 26 Date of last use: 10/09/18 Benzodiazepine (Klonopin) Substance route: Oral Frequency: Daily Amount used: 4-6 mg Age of first use: 26 Date of last use: 10/09/18 Family Disease History - Family Disease History Family Disease History: Diabetes: Father (BLOOD CLOT, ), Brother, Heart Disease: Mother (, [place].), Brother, Other: Father Admission Physical Exam BHS - Vital Signs Vital Signs: Vital Signs - 24 hr 10/09/18 21:05 Temperature 99.1 F Pulse Rate 71 Respiratory 16 Rate Blood Pressure 121/76 - Physical General Appearance: Yes: Mild Distress, Tremorous (FELT), Sweating, Anxious HEENTM: Yes: EOMI, Normocephalic, Normal Voice, QUIN, Pharynx Normal, Other (NO TOP TEETH) Respiratory: Yes: Chest Non-Tender, Lungs Clear, Normal Breath Sounds, No Respiratory Distress, No Accessory Muscle Use Neck: Yes: No masses,lesions,Nodules, Supple, Trachea in good position Breast: Yes: Breast Exam Deferred Cardiology: Yes: Regular Rhythm, Regular Rate, S1, S2 Abdominal: Yes: Normal Bowel Sounds, Non Tender, Soft Genitourinary: Yes: Within Normal Limits Back: Yes: Normal Inspection Musculoskeletal: Yes: full range of Motion, Gait Steady Extremities: Yes: Normal Capillary Refill, Normal Range of Motion, Non-Tender, Tremors (FELT), Other (ABRASION TO LEFT HAND) Neurological: Yes: Alert, Motor Strength 5/5 Integumentary: Yes: Clammy, Moist Lymphatic: Yes: Within Normal Limits - Diagnostic (1) Withdrawal seizures Current Visit: Yes Status: Suspected Qualifiers: Complication of substance-induced condition: uncomplicated Qualified Code(s ): F19.230 - Other psychoactive substance dependence with withdrawal, uncomplicated; R56.9 - Unspecified convulsions Comment: HX/O (2) Anxiety disorder Current Visit: Yes Status: Chronic (3) Cannabis dependence Current Visit: No Status: Chronic (4) Methadone maintenance therapy patient Current Visit: Yes Status: Chronic (5) Nicotine dependence Current Visit: Yes Status: Chronic Qualifiers: Nicotine product type: cigarettes Substance use status: uncomplicated Qualified Code(s): F17.210 - Nicotine dependence, cigarettes, uncomplicated (6) Sedative, hypnotic or anxiolytic dependence with withdrawal, uncomplicated Current Visit: Yes Status: Acute (7) Substance induced mood disorder Current Visit: Yes Status: Chronic Cleared for Admission S - Detox or Rehab [facility] Level of Care: Medically Managed Detox Regimen/Protocol: Valium Claeared for Rehab Admission: No Breathalyzer - Breathalyzer Breathalyzer: 0 Urine Drug Screen - Test Device Lot number: [id number] Expiration date: 02/17/21 - Control Is test valid?: Yes - Results Drug screen NEGATIVE: No Urine drug screen results: THC-Marijuana, MET-Methamphetamine, MTD-Methadone, BAR-Barbiturates, BZO-Benzodiazepines Inpatient Rehab Admission - Rehab Decision to Admit Inpatient rehab admission?: No
[2018-10-09] MEDS ORDERED: ACETAMINOPHEN 325 MG TABLET (FP) PO PRN ×2 (23:24)
[2018-10-09] MEDS ORDERED: MAGNESIUM CITRATE 300 ML BOTTLE PO PRN (23:24)
[2018-10-09] MEDS ORDERED: ONDANSETRON *ODT* 4 MG TABLET SL PRN (23:24)
[2018-10-09] MEDS ORDERED: DICYCLOMINE HCL 10 MG CAPSULE PO PRN (23:24)
[2018-10-09] MEDS ORDERED: NICOTINE POLACRILEX 2 MG GUM BUC PRN (23:24)
[2018-10-09] MEDS ORDERED: IBUPROFEN 400 MG TABLET (FP) PO PRN (23:24)
[2018-10-09] MEDS ORDERED: hydrOXYzine HCL 25 MG TABLET (FP) PO PRN (23:24)
[2018-10-09] MEDS ORDERED: BISMUTH SUBSALICYLATE 524 MG/30 ML UD PO PRN (23:24)
[2018-10-09] MEDS ORDERED: P-EPHED 60MG/TRIPROLIDI 2.5MG TABLET PO PRN (23:24)
[2018-10-09] MEDS ORDERED: guaiFENesin 200 MG/10 ML 10 ML UNIT-DOSE CUPS PO PRN (23:24)
[2018-10-09] MEDS ORDERED: MENTHOL/PHENOL 1 EACH UD MM PRN (23:24)
[2018-10-09] MEDS ORDERED: MAG HYDROX/AL HYDROX/SIMETH 30 ML UNIT-DOSE CUP PO PRN (23:24)
[2018-10-09] MEDS ORDERED: MAGNESIUM HYDROX 2400MG/30ML ORAL SUSPENSION 30 ML CUP PO PRN (23:24)
[2018-10-09] MEDS ORDERED: METHOCARBAMOL 500 MG TABLET PO PRN (23:24)
[2018-10-10] MEDS: diazePAM 5 MG TABLET PO PRN ×4 (00:35→19:03)
[2018-10-10] MEDS: MELATONIN 5 MG TABLETS PO PRN ×2 (00:35→22:05)
[2018-10-10] MEDS: diazePAM 5 MG TABLET PO SCH ×4 (01:21→22:05)
[2018-10-10] MEDS: NICOTINE 21 MG/24 HOURS TOPICAL PATCH TD SCH (10:09)
[2018-10-10] MEDS: PRENATAL VITAMINS W/ FOLIC ACID TABLET (FP) PO SCH (10:09)
[2018-10-10] MEDS ORDERED: METHADONE HCL 40 MG DISPERSABLE TABLET PO ONE (11:05)
[2018-10-10 12:16] LABS: ALBUMIN 3.1 g/dl (3.4-5.0); BILIRUBIN,TOTAL 0.3 mg/dL (0.2-1); BLOOD UREA NITROGEN 9.5 mg/dL (7-18); CALCIUM 8.5 mg/dL (8.5-10.1); CREATININE 0.7 mg/dL (0.55-1.3); POTASSIUM 3.8 mmol/L (3.5-5.1); TOT PROT 6.4 g/dl (6.4-8.2)
[2018-10-10 12:19] LABS: HEMATOCRIT 33.2 % (35.4-49); MCH 27.4 pg (25.7-33.7); MCHC 33.1 g/dl (32.0-35.9); MEAN CELL VOLUME 82.8 fl (80-96); MEAN PLT VOLUME 9.5 fl (7.5-11.1); PLATELET COUNT 258 K/MM3 (134-434); RBC 4.01 M/mm3 (4.00-5.60); RDW 14.9 % (11.9-15.9); WHITE BLOOD COUNT 6.9 K/mm3 (4.0-10.0)
--- NOTE | 2018-10-10 13:42 | EKG ---
Test Reason : Blood Pressure : / mmHG Vent. Rate : 067 BPM Atrial Rate : 067 BPM P-R Int : 146 ms QRS Dur : 082 ms QT Int : 436 ms P-R-T Axes : 053 027 022 degrees QTc Int : 460 ms NORMAL SINUS RHYTHM NORMAL ECG WHEN COMPARED WITH ECG OF 19-JUN-2018 13:46, NO SIGNIFICANT CHANGE WAS FOUND Confirmed by Shekhar Cornell MD ([id number]) on 10/10/2018 1:42:30 PM Referred By: Confirmed By:Shekhar Cornell MD
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
[2018-10-10 15:04] LABS: PH,URINE 8.5 (5.0-8.0); URINE APPEARANCE CLEAR; URINE BILIRUBIN NEGATIVE (NEGATIVE); URINE COLOR YELLOW; URINE GLUCOSE (UA) NEGATIVE (NEGATIVE); URINE KETONE NEGATIVE (NEGATIVE); URINE LEUK ESTERASE NEGATIVE (NEGATIVE); URINE NITRITE NEGATIVE (NEGATIVE); URINE PROTEIN NEGATIVE (NEGATIVE)
--- NOTE | 2018-10-10 15:06 | PN ---
[facility] CIWA - CIWA Score Nausea/Vomitin-Mild Nausea/No Vomiting Muscle Tremors: 3 Anxiety: 3 Agitation: 3 Paroxysmal Sweats: 1-Minimal Palms Moist Orientation: 1-Uncertain about Date Tacttile Disturbances: 1-Very Mild Itch/Numbness Auditory Disturbances: 0-None Visual Disturbances: 0-None Headache: 1-Very Mild CIWA-Ar Total Score: 14 S Progress Note (SOAP) Subjective: feeling better today that he received methadone 320 mg po anxiousness tremor sweat otherwise doing ok with valium detox regimen Objective: 10/10/18 15:08 Vital Signs Temperature 98.7 F 10/10/18 13:12 Pulse Rate 82 10/10/18 13:12 Respiratory Rate 16 10/10/18 13:12 Blood Pressure 137/74 10/10/18 13:12 O2 Sat by Pulse Oximetry (%) Laboratory Last Values WBC 6.9 K/mm3 (4.0-10.0) 10/10/18 07:00 RBC 4.01 M/mm3 (4.00-5.60) 10/10/18 07:00 Hgb 11.0 GM/dL (11.7-16.9) L 10/10/18 07:00 Hct 33.2 % (35.4-49) L 10/10/18 07:00 MCV 82.8 fl (80-96) 10/10/18 07:00 MCH 27.4 pg (25.7-33.7) 10/10/18 07:00 MCHC 33.1 g/dl (32.0-35.9) 10/10/18 07:00 RDW 14.9 % (11.9-15.9) 10/10/18 07:00 Plt Count 258 K/MM3 (134-434) D 10/10/18 07:00 MPV 9.5 fl (7.5-11.1) 10/10/18 07:00 Sodium 140 mmol/L (136-145) 10/10/18 07:00 Potassium 3.8 mmol/L (3.5-5.1) 10/10/18 07:00 Chloride 103 mmol/L (98-107) 10/10/18 07:00 Carbon Dioxide 30 mmol/L (21-32) 10/10/18 07:00 Anion Gap 6 MMOL/L (8-16) L 10/10/18 07:00 BUN 9.5 mg/dL (7-18) 10/10/18 07:00 Creatinine 0.7 mg/dL (0.55-1.3) 10/10/18 07:00 Est GFR (CKD-EPI)AfAm 146.77 10/10/18 07:00 Est GFR (CKD-EPI)NonAf 126.64 10/10/18 07:00 Random Glucose 83 mg/dL (74-106) 10/10/18 07:00 Calcium 8.5 mg/dL (8.5-10.1) 10/10/18 07:00 Total Bilirubin 0.3 mg/dL (0.2-1) 10/10/18 07:00 AST 11 U/L (15-37) L 10/10/18 07:00 ALT 15 U/L (13-61) 10/10/18 07:00 Alkaline Phosphatase 111 U/L (45-117) 10/10/18 07:00 Total Protein 6.4 g/dl (6.4-8.2) 10/10/18 07:00 Albumin 3.1 g/dl (3.4-5.0) L 10/10/18 07:00 Urine Color Yellow 10/10/18 12:00 Urine Appearance Clear 10/10/18 12:00 Urine pH 8.5 (5.0-8.0) H D 10/10/18 12:00 Ur Specific [place] 1.021 (1.010-1.035) 10/10/18 12:00 Urine Protein Negative (NEGATIVE) 10/10/18 12:00 Urine Glucose (UA) Negative (NEGATIVE) 10/10/18 12:00 Urine Ketones Negative (NEGATIVE) 10/10/18 12:00 Urine Blood Negative (NEGATIVE) 10/10/18 12:00 Urine Nitrite Negative (NEGATIVE) 10/10/18 12:00 Urine Bilirubin Negative (NEGATIVE) 10/10/18 12:00 Urine Urobilinogen 1.0 mg/dL (0.2-1.0) 10/10/18 12:00 Ur Leukocyte Esterase Negative (NEGATIVE) 10/10/18 12:00 lab noted Assessment: 10/10/18 15:09 benzo withdrawal sx Plan: continue benzo detox
[2018-10-10] MEDS: THIAMINE HCL 100 MG TABLET (FP) PO SCH (22:05)
[2018-10-11] MEDS: diazePAM 5 MG TABLET PO SCH ×2 (05:10→17:43)
[2018-10-11] MEDS: METHADONE HCL 40 MG DISPERSABLE TABLET PO SCH (05:10)
[2018-10-11] MEDS: diazePAM 5 MG TABLET PO PRN ×3 (09:34→19:59)
[2018-10-11] MEDS: NICOTINE 21 MG/24 HOURS TOPICAL PATCH TD SCH (09:34)
[2018-10-11] MEDS: PRENATAL VITAMINS W/ FOLIC ACID TABLET (FP) PO SCH (09:35)
--- NOTE | 2018-10-11 10:28 | PN ---
[facility] CIWA - CIWA Score Nausea/Vomitin-No Nausea/No Vomiting Muscle Tremors: 1-None Visible, but [place] Anxiety: 3 Agitation: 2 Paroxysmal Sweats: 1-Minimal Palms Moist Orientation: 0-Oriented Tacttile Disturbances: 1-Very Mild Itch/Numbness Auditory Disturbances: 0-None Visual Disturbances: 0-None Headache: 1-Very Mild CIWA-Ar Total Score: 9 S Progress Note (SOAP) Subjective: feeling better today less anxious received methadone 320 mg today [facility] Objective: 10/11/18 10:27 Vital Signs Temperature 98.7 F 10/11/18 09:00 Pulse Rate 72 10/11/18 09:00 Respiratory Rate 18 10/11/18 09:00 Blood Pressure 112/69 10/11/18 09:00 O2 Sat by Pulse Oximetry (%) Laboratory Last Values WBC 6.9 K/mm3 (4.0-10.0) 10/10/18 07:00 RBC 4.01 M/mm3 (4.00-5.60) 10/10/18 07:00 Hgb 11.0 GM/dL (11.7-16.9) L 10/10/18 07:00 Hct 33.2 % (35.4-49) L 10/10/18 07:00 MCV 82.8 fl (80-96) 10/10/18 07:00 MCH 27.4 pg (25.7-33.7) 10/10/18 07:00 MCHC 33.1 g/dl (32.0-35.9) 10/10/18 07:00 RDW 14.9 % (11.9-15.9) 10/10/18 07:00 Plt Count 258 K/MM3 (134-434) D 10/10/18 07:00 MPV 9.5 fl (7.5-11.1) 10/10/18 07:00 Sodium 140 mmol/L (136-145) 10/10/18 07:00 Potassium 3.8 mmol/L (3.5-5.1) 10/10/18 07:00 Chloride 103 mmol/L (98-107) 10/10/18 07:00 Carbon Dioxide 30 mmol/L (21-32) 10/10/18 07:00 Anion Gap 6 MMOL/L (8-16) L 10/10/18 07:00 BUN 9.5 mg/dL (7-18) 10/10/18 07:00 Creatinine 0.7 mg/dL (0.55-1.3) 10/10/18 07:00 Est GFR (CKD-EPI)AfAm 146.77 10/10/18 07:00 Est GFR (CKD-EPI)NonAf 126.64 10/10/18 07:00 Random Glucose 83 mg/dL (74-106) 10/10/18 07:00 Calcium 8.5 mg/dL (8.5-10.1) 10/10/18 07:00 Total Bilirubin 0.3 mg/dL (0.2-1) 10/10/18 07:00 AST 11 U/L (15-37) L 10/10/18 07:00 ALT 15 U/L (13-61) 10/10/18 07:00 Alkaline Phosphatase 111 U/L (45-117) 10/10/18 07:00 Total Protein 6.4 g/dl (6.4-8.2) 10/10/18 07:00 Albumin 3.1 g/dl (3.4-5.0) L 10/10/18 07:00 Urine Color Yellow 10/10/18 12:00 Urine Appearance Clear 10/10/18 12:00 Urine pH 8.5 (5.0-8.0) H D 10/10/18 12:00 Ur Specific [place] 1.021 (1.010-1.035) 10/10/18 12:00 Urine Protein Negative (NEGATIVE) 10/10/18 12:00 Urine Glucose (UA) Negative (NEGATIVE) 10/10/18 12:00 Urine Ketones Negative (NEGATIVE) 10/10/18 12:00 Urine Blood Negative (NEGATIVE) 10/10/18 12:00 Urine Nitrite Negative (NEGATIVE) 10/10/18 12:00 Urine Bilirubin Negative (NEGATIVE) 10/10/18 12:00 Urine Urobilinogen 1.0 mg/dL (0.2-1.0) 10/10/18 12:00 Ur Leukocyte Esterase Negative (NEGATIVE) 10/10/18 12:00 RPR Titer Nonreactive (NONREACTIVE) 10/10/18 07:00 lab noted Assessment: 10/11/18 10:27 benzo withdrawal sx Plan: continue benzo detox
[2018-10-11] MEDS: MELATONIN 5 MG TABLETS PO PRN (22:01)
[2018-10-11] MEDS: THIAMINE HCL 100 MG TABLET (FP) PO SCH (22:01)
[2018-10-12] MEDS ORDERED: diazePAM 5 MG TABLET PO ONE (06:00)
[2018-10-12] MEDS: METHADONE HCL 40 MG DISPERSABLE TABLET PO SCH (06:19)
[2018-10-12 09:30] VITALS: BP 133/81; PULSE 69; TEMP 98.4
[2018-10-12] MEDS: PRENATAL VITAMINS W/ FOLIC ACID TABLET (FP) PO SCH (10:34)
[2018-10-12] MEDS: NICOTINE 21 MG/24 HOURS TOPICAL PATCH TD SCH (10:34)
--- NOTE | 2018-10-12 15:41 | DS ---
[facility] Detox Discharge Summary Admission Date: 10/09/18 Discharge Date: 10/12/18 - History Present History: Sedative Dependence Additional Comments: 28 years old male admitted on 10/09/18 for acute benzo withdrawal sx management no complication throughout the detox stay alert oriented x 3 denies dizziness no shortness of breath - Physical Exam Results Vital Signs: Vital Signs Temperature 98.4 F 10/12/18 09:29 Pulse Rate 69 10/12/18 09:29 Respiratory Rate 18 10/12/18 09:29 Blood Pressure 133/81 10/12/18 09:29 O2 Sat by Pulse Oximetry (%) Pertinent Admission Physical Exam Findings: benzo withdrawal sx Laboratory Last Values WBC 6.9 K/mm3 (4.0-10.0) 10/10/18 07:00 RBC 4.01 M/mm3 (4.00-5.60) 10/10/18 07:00 Hgb 11.0 GM/dL (11.7-16.9) L 10/10/18 07:00 Hct 33.2 % (35.4-49) L 10/10/18 07:00 MCV 82.8 fl (80-96) 10/10/18 07:00 MCH 27.4 pg (25.7-33.7) 10/10/18 07:00 MCHC 33.1 g/dl (32.0-35.9) 10/10/18 07:00 RDW 14.9 % (11.9-15.9) 10/10/18 07:00 Plt Count 258 K/MM3 (134-434) D 10/10/18 07:00 MPV 9.5 fl (7.5-11.1) 10/10/18 07:00 Sodium 140 mmol/L (136-145) 10/10/18 07:00 Potassium 3.8 mmol/L (3.5-5.1) 10/10/18 07:00 Chloride 103 mmol/L (98-107) 10/10/18 07:00 Carbon Dioxide 30 mmol/L (21-32) 10/10/18 07:00 Anion Gap 6 MMOL/L (8-16) L 10/10/18 07:00 BUN 9.5 mg/dL (7-18) 10/10/18 07:00 Creatinine 0.7 mg/dL (0.55-1.3) 10/10/18 07:00 Est GFR (CKD-EPI)AfAm 146.77 10/10/18 07:00 Est GFR (CKD-EPI)NonAf 126.64 10/10/18 07:00 Random Glucose 83 mg/dL (74-106) 10/10/18 07:00 Calcium 8.5 mg/dL (8.5-10.1) 10/10/18 07:00 Total Bilirubin 0.3 mg/dL (0.2-1) 10/10/18 07:00 AST 11 U/L (15-37) L 10/10/18 07:00 ALT 15 U/L (13-61) 10/10/18 07:00 Alkaline Phosphatase 111 U/L (45-117) 10/10/18 07:00 Total Protein 6.4 g/dl (6.4-8.2) 10/10/18 07:00 Albumin 3.1 g/dl (3.4-5.0) L 10/10/18 07:00 Urine Color Yellow 10/10/18 12:00 Urine Appearance Clear 10/10/18 12:00 Urine pH 8.5 (5.0-8.0) H D 10/10/18 12:00 Ur Specific [place] 1.021 (1.010-1.035) 10/10/18 12:00 Urine Protein Negative (NEGATIVE) 10/10/18 12:00 Urine Glucose (UA) Negative (NEGATIVE) 10/10/18 12:00 Urine Ketones Negative (NEGATIVE) 10/10/18 12:00 Urine Blood Negative (NEGATIVE) 10/10/18 12:00 Urine Nitrite Negative (NEGATIVE) 10/10/18 12:00 Urine Bilirubin Negative (NEGATIVE) 10/10/18 12:00 Urine Urobilinogen 1.0 mg/dL (0.2-1.0) 10/10/18 12:00 Ur Leukocyte Esterase Negative (NEGATIVE) 10/10/18 12:00 RPR Titer Nonreactive (NONREACTIVE) 10/10/18 07:00 lab noted - Treatment Hospital Course: Detox Protocol Followed, Detoxed Safely, Responded well, Discharged Condition Good, Rehab Referral Accepted Patient has Accepted a [facility] Referral [facility]: [facility] - Medication Discharge Medications: Ambulatory Orders NK [No Known Home Medication] 06/19/18 - Diagnosis (1) Sedative, hypnotic or anxiolytic dependence with withdrawal, uncomplicated Status: Acute (2) Methadone maintenance therapy patient Status: Chronic (3) Nicotine dependence Status: Acute Qualifiers: Nicotine product type: cigarettes Substance use status: in withdrawal Qualified Code(s): F17.213 - Nicotine dependence, cigarettes, with withdrawal - AMA Did Patient Leave Against Medical Advice: No
== END 2018-10-12 12:30 | disposition other institution (70) | DRG 773 ==
LOC: YASAS 18:02 → Y3N 23:30
PROVIDERS: ADMIT Surgery; ATTEND Surgery
PROC: HZ2ZZZZ Detoxification Services for Substance Abuse Treatment (ICD-10-PCS; principal; 2018-10-09)
DX: F13.230 Sedative, hypnotic or anxiolytic dependence with withdrawal, uncomplicated (principal); F11.20 Opioid dependence, uncomplicated; F14.20 Cocaine dependence, uncomplicated; F12.20 Cannabis dependence, uncomplicated; F17.213 Nicotine dependence, cigarettes, with withdrawal; F19.24 Other psychoactive substance dependence with psychoactive substance-induced mood disorder; F41.9 Anxiety disorder, unspecified; D64.9 Anemia, unspecified; Z86.69 Personal history of other diseases of the nervous system and sense organs
CPT/HCPCS: 36415; 80053; 81003; 85027; 86593; 93005; 93010

== ENCOUNTER 2018-10-12 12:41 | Inpatient (IN) | payer OTHER ==
[2018-10-12] MEDS ORDERED: LOPERAMIDE HCL 2 MG CAPSULE PO PRN (15:43)
[2018-10-12] MEDS ORDERED: guaiFENesin 200 MG/10 ML 10 ML UNIT-DOSE CUPS PO PRN (15:43)
[2018-10-12] MEDS ORDERED: NICOTINE 14 MG/24 HOURS TOPICAL PATCH TD PRN (15:43)
[2018-10-12] MEDS ORDERED: MENTHOL/PHENOL 1 EACH UD MM PRN (15:43)
[2018-10-12] MEDS ORDERED: P-EPHED 60MG/TRIPROLIDI 2.5MG TABLET PO PRN (15:43)
[2018-10-12] MEDS ORDERED: MAGNESIUM CITRATE 300 ML BOTTLE PO PRN (15:43)
--- NOTE | 2018-10-12 15:43 | HP ---
[facility] Rehab Assess/Revision - Admission History Admitted to Rehab from: Gurdeep Vaughn Date of Admission to Rehab: 10/12/18 - Vital signs Vital Signs: Vital Signs Period Temp Pulse Resp BP Sys/Argueta Pulse Ox Last 24 Hr 97.3 F 70 18 123/74 - Findings Detox History & Physical reviewed: Yes Concur with findings: Yes Comments/Additional Findings: transferred from detox to rehab admission as per protocol Inpatient Rehab Admission - Rehab Decision to Admit Inpatient rehab admission?: Yes - Initial Determination Are CD services needed?: Yes Free of communicable disease: Yes Not in need of hospitalization: Yes - Rehab Admission Criteria Previous failed treatment: Yes Poor recovery environment: Yes Comorbidities: Yes Lacks judgement: No Patient is meeting Inpatient Rehab admission criteria:: Yes
[2018-10-12] MEDS: THIAMINE HCL 100 MG TABLET (FP) PO SCH (21:48)
[2018-10-12] MEDS ORDERED: MELATONIN 5 MG TABLETS PO PRN (22:00)
[2018-10-13] MEDS: METHADONE HCL 40 MG DISPERSABLE TABLET PO SCH (05:55)
[2018-10-13] MEDS: PRENATAL VITAMINS W/ FOLIC ACID TABLET (FP) PO SCH (10:24)
[2018-10-13] MEDS: NICOTINE POLACRILEX 2 MG GUM BUC PRN ×2 (10:30→13:43)
[2018-10-13] MEDS: MAG HYDROX/AL HYDROX/SIMETH 30 ML UNIT-DOSE CUP PO PRN (16:00)
--- NOTE | 2018-10-13 16:16 | PN ---
[facility] Progress Note Note: PATIENT REQUESTING TRAZODONE FOR INSOMNIA AND VISTARIL FOR ANXIETY. CURRENTLY ON 320MG OF METHADONE AND SEEN BY DR. BERNAL WHILE IN REHAB. PATIENT WAS MANAGED WITH MELATONIN. WILL INCREASE MELATONIN TO 10MG HS, ORDER PSYCH CONSULT AND ADD LOW DOSE VISTARIL 25MG TID FOR ANXIETY. Vital Signs Temperature 97.8 F 10/13/18 06:41 Pulse Rate 71 10/13/18 06:41 Respiratory Rate 18 10/13/18 06:41 Blood Pressure 148/89 10/13/18 06:41 O2 Sat by Pulse Oximetry (%)
[2018-10-13] MEDS: IBUPROFEN 400 MG TABLET (FP) PO PRN (20:07)
[2018-10-13] MEDS: THIAMINE HCL 100 MG TABLET (FP) PO SCH (21:10)
[2018-10-13] MEDS: MELATONIN 5 MG TABLETS PO PRN (21:10)
[2018-10-13] MEDS: hydrOXYzine PAMOATE 25 MG CAPSULE (FP) PO PRN (23:21)
[2018-10-14] MEDS: METHADONE HCL 40 MG DISPERSABLE TABLET PO SCH (06:13)
[2018-10-14] MEDS: NICOTINE 21 MG/24 HOURS TOPICAL PATCH TD SCH (09:40)
[2018-10-14] MEDS: PRENATAL VITAMINS W/ FOLIC ACID TABLET (FP) PO SCH (09:40)
[2018-10-14] MEDS: IBUPROFEN 400 MG TABLET (FP) PO PRN (09:42)
[2018-10-14] MEDS: MAGNESIUM HYDROX 2400MG/30ML ORAL SUSPENSION 30 ML CUP PO PRN (09:42)
[2018-10-14] MEDS: hydrOXYzine PAMOATE 25 MG CAPSULE (FP) PO PRN (09:42)
[2018-10-14] MEDS: THIAMINE HCL 100 MG TABLET (FP) PO SCH (21:41)
[2018-10-14] MEDS: ACETAMINOPHEN 325 MG TABLET (FP) PO PRN (21:42)
[2018-10-14] MEDS: MELATONIN 5 MG TABLETS PO PRN (21:43)
[2018-10-15] MEDS: METHADONE HCL 40 MG DISPERSABLE TABLET PO SCH (06:04)
[2018-10-15] MEDS: IBUPROFEN 400 MG TABLET (FP) PO PRN ×2 (06:06→15:57)
[2018-10-15] MEDS: NICOTINE 21 MG/24 HOURS TOPICAL PATCH TD SCH (09:20)
[2018-10-15] MEDS: PRENATAL VITAMINS W/ FOLIC ACID TABLET (FP) PO SCH (09:20)
[2018-10-15] MEDS: hydrOXYzine PAMOATE 25 MG CAPSULE (FP) PO PRN ×2 (09:20→21:14)
[2018-10-15] MEDS: ACETAMINOPHEN 325 MG TABLET (FP) PO PRN (09:21)
[2018-10-15] MEDS: THIAMINE HCL 100 MG TABLET (FP) PO SCH (21:11)
[2018-10-15] MEDS: MELATONIN 5 MG TABLETS PO PRN (21:12)
[2018-10-15] MEDS: NICOTINE POLACRILEX 2 MG GUM BUC PRN (21:14)
[2018-10-16] MEDS: METHADONE HCL 40 MG DISPERSABLE TABLET PO SCH (05:59)
[2018-10-16] MEDS: IBUPROFEN 400 MG TABLET (FP) PO PRN ×2 (06:00→21:52)
[2018-10-16] MEDS: hydrOXYzine PAMOATE 25 MG CAPSULE (FP) PO PRN ×3 (06:01→21:52)
[2018-10-16] MEDS: NICOTINE 21 MG/24 HOURS TOPICAL PATCH TD SCH (10:06)
[2018-10-16] MEDS: PRENATAL VITAMINS W/ FOLIC ACID TABLET (FP) PO SCH (10:06)
[2018-10-16] MEDS: MAG HYDROX/AL HYDROX/SIMETH 30 ML UNIT-DOSE CUP PO PRN ×2 (13:06→21:51)
[2018-10-16] MEDS ORDERED: BENZOCAINE 20 % GEL TUBE MM PRN (15:18)
[2018-10-16] MEDS: MELATONIN 5 MG TABLETS PO PRN (21:51)
[2018-10-16] MEDS: THIAMINE HCL 100 MG TABLET (FP) PO SCH (21:52)
[2018-10-16] MEDS: NICOTINE POLACRILEX 2 MG GUM BUC PRN (21:54)
[2018-10-17] MEDS: METHADONE HCL 40 MG DISPERSABLE TABLET PO SCH (06:06)
[2018-10-17] MEDS: hydrOXYzine PAMOATE 25 MG CAPSULE (FP) PO PRN ×3 (06:06→21:05)
[2018-10-17] MEDS: PRENATAL VITAMINS W/ FOLIC ACID TABLET (FP) PO SCH (10:07)
[2018-10-17] MEDS: NICOTINE 21 MG/24 HOURS TOPICAL PATCH TD SCH (10:07)
[2018-10-17] MEDS: MAGNESIUM HYDROX 2400MG/30ML ORAL SUSPENSION 30 ML CUP PO PRN (10:09)
[2018-10-17] MEDS: NICOTINE POLACRILEX 2 MG GUM BUC PRN ×2 (10:10→21:05)
[2018-10-17] MEDS: THIAMINE HCL 100 MG TABLET (FP) PO SCH (21:05)
[2018-10-17] MEDS: MELATONIN 5 MG TABLETS PO PRN (21:05)
[2018-10-17] MEDS: IBUPROFEN 400 MG TABLET (FP) PO PRN (21:07)
[2018-10-18] MEDS: METHADONE HCL 40 MG DISPERSABLE TABLET PO SCH (05:55)
[2018-10-18] MEDS: hydrOXYzine PAMOATE 25 MG CAPSULE (FP) PO PRN ×3 (05:56→21:54)
[2018-10-18] MEDS: PRENATAL VITAMINS W/ FOLIC ACID TABLET (FP) PO SCH (09:48)
[2018-10-18] MEDS: NICOTINE 21 MG/24 HOURS TOPICAL PATCH TD SCH (09:48)
[2018-10-18] MEDS: NICOTINE POLACRILEX 2 MG GUM BUC PRN ×2 (09:49→19:49)
[2018-10-18] MEDS: IBUPROFEN 400 MG TABLET (FP) PO PRN ×2 (10:53→19:17)
[2018-10-18] MEDS: ACETAMINOPHEN 325 MG TABLET (FP) PO PRN (13:57)
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
[2018-10-18] MEDS: THIAMINE HCL 100 MG TABLET (FP) PO SCH (21:54)
[2018-10-18] MEDS: traZODone HCL 50 MG TABLET (FP) PO SCH (21:54)
[2018-10-19] MEDS: METHADONE HCL 40 MG DISPERSABLE TABLET PO SCH (06:09)
[2018-10-19] MEDS: hydrOXYzine PAMOATE 25 MG CAPSULE (FP) PO PRN (06:11)
[2018-10-19] MEDS: NICOTINE 21 MG/24 HOURS TOPICAL PATCH TD SCH (09:30)
[2018-10-19] MEDS: PRENATAL VITAMINS W/ FOLIC ACID TABLET (FP) PO SCH (09:30)
[2018-10-19] MEDS: NICOTINE POLACRILEX 2 MG GUM BUC PRN ×2 (09:31→21:16)
[2018-10-19] MEDS: MELATONIN 5 MG TABLETS PO PRN (21:14)
[2018-10-19] MEDS: THIAMINE HCL 100 MG TABLET (FP) PO SCH (21:15)
[2018-10-19] MEDS: traZODone HCL 50 MG TABLET (FP) PO SCH (21:15)
[2018-10-20] MEDS: hydrOXYzine PAMOATE 25 MG CAPSULE (FP) PO PRN (06:10)
[2018-10-20] MEDS: METHADONE HCL 40 MG DISPERSABLE TABLET PO SCH (06:10)
[2018-10-20 07:14] VITALS: BP 149/85; PULSE 76; TEMP 96.8
[2018-10-20] MEDS: PRENATAL VITAMINS W/ FOLIC ACID TABLET (FP) PO SCH (10:16)
[2018-10-20] MEDS: NICOTINE 21 MG/24 HOURS TOPICAL PATCH TD SCH (10:17)
[2018-10-20] MEDS: IBUPROFEN 400 MG TABLET (FP) PO PRN (10:17)
--- NOTE | 2018-10-20 11:00 | PN ---
[facility] Progress Note Note: REHAB DISCHARGE NOTE: PATIENT D/C TODAY FROM REHAB AFTER COMPLETING ONE WEEK OF TREATMENT. PATIENT ADMITTED 10/13/18-10/20/18 FOR BZO/SEDATIVE DEPENDENCE. PATIENT REPORTS HE ACCOMPLISHED ALL REHAB GOALS AND WAS ABLE TO COMPLETE TREATMENT WITHOUT ANY SIGNIFICANT CHANGE IN MEDICAL STATUS. PATIENT IS MEDICALLY STABLE AND DENIES SI/ HI. AFTERCARE ARRANGED FOR [facility] FOR REINSTATEMENT TODAY. PATIENT ENCOURAGED TO CONTINUE GROUP MEETINGS TO PREVENT RELAPSE. Vital Signs (72 hours) 10/18/18 10/18/18 10/18/18 00:30 03:30 06:34 Temperature 98.3 F Pulse Rate 77 Respiratory 18 18 18 Rate Blood Pressure 157/99 10/18/18 10/18/18 10/19/18 10:00 21:26 00:30 Temperature 98.3 F Pulse Rate 77 75 Respiratory 18 18 18 Rate Blood Pressure 157/99 153/73 10/19/18 10/19/18 10/20/18 03:30 06:58 00:30 Temperature 97 F L Pulse Rate 71 Respiratory 18 18 18 Rate Blood Pressure 151/90 10/20/18 10/20/18 03:30 07:12 Temperature 96.8 F L Pulse Rate 76 Respiratory 18 18 Rate Blood Pressure 149/85 PE: ALERT AND ORIENTED X 3 SKIN WARM AND DRY CAR S1S2 RESP CTA BL EXT FULL ROM, NO TREMORS NOTED AMB AD DAVY DENIES SI/HI A/P: BZO DEPENDENCE OPIOD DEPENDENCE MMTP STABLE FOR DISCHARGE TODAY
== END 2018-10-20 10:25 | disposition home or self-care (01) | DRG 772 ==
LOC: YASAS 12:41 → Y3W 12:45
PROVIDERS: ADMIT Neuromusculoskeletal Medicine & OMM; ATTEND Neuromusculoskeletal Medicine & OMM
PROC: HZ42ZZZ Group Counseling for Substance Abuse Treatment, Cognitive-Behavioral (ICD-10-PCS; principal; 2018-10-12)
DX: F13.20 Sedative, hypnotic or anxiolytic dependence, uncomplicated (principal); F11.20 Opioid dependence, uncomplicated; F12.20 Cannabis dependence, uncomplicated; F17.210 Nicotine dependence, cigarettes, uncomplicated; F19.24 Other psychoactive substance dependence with psychoactive substance-induced mood disorder; G47.00 Insomnia, unspecified